=== PATIENT | male | born 1930 | race Caucasian/White ===

== ENCOUNTER → 2016-10-19 | Outpatient (CLI) | payer MEDICARE, OTHER | LOC: OD 08:03 | PROVIDERS: ATTEND Family Medicine | DX: I10 Essential (primary) hypertension (principal); Z13.1 Encounter for screening for diabetes mellitus; R42 Dizziness and giddiness; N40.0 Benign prostatic hyperplasia without lower urinary tract symptoms | CPT/HCPCS: 36415; 83036; 84153 ==

== ENCOUNTER → 2017-09-28 | Outpatient (CLI) | payer MEDICARE, OTHER ==
[2017-09-28 09:41] LABS: ANION GAP 11 (5-19); BLOOD UREA NITROGEN 19 mg/dL (7-20); CARBON DIOXIDE 28 mmol/L (22-30); CHLORIDE 106 mmol/L (98-107); CHOLESTEROL 129.51 mg/dL (0-200); GLUCOSE 96 mg/dL (75-110); SODIUM 144.7 mmol/L (137-145); TRIGLYCERIDES 81 mg/dL (<150)
[2017-09-28 09:52] LABS: DIRECT LDL 63 mg/dL (<100)
== END ==
LOC: OD 08:20
PROVIDERS: ATTEND Family Medicine
DX: N40.0 Benign prostatic hyperplasia without lower urinary tract symptoms (principal); E78.5 Hyperlipidemia, unspecified; Z13.1 Encounter for screening for diabetes mellitus; I10 Essential (primary) hypertension; Z79.899 Other long term (current) drug therapy
CPT/HCPCS: 36415; 80048; 80061; 83036; 84153; 84443

== ENCOUNTER 2018-05-29 11:55 | Inpatient (IN) | payer OTHER, MEDICARE ==
--- NOTE | 2018-05-29 12:34 | RADIOLOGY REPORT (SQ) ---
EXAM DESCRIPTION: CHEST SINGLE VIEW COMPLETED DATE/TIME: 05/29/2018 12:27 pm REASON FOR STUDY: SOB COMPARISON: 10/20/2011 EXAM PARAMETERS: NUMBER OF VIEWS: One view. TECHNIQUE: Single frontal radiographic view of the chest acquired. RADIATION DOSE: NA LIMITATIONS: Low lung volumes. FINDINGS: LUNGS AND PLEURA: There is mild bibasilar interstitial airspace disease. No consolidation . MEDIASTINUM AND HILAR STRUCTURES: No masses. Contour normal. HEART AND VASCULAR STRUCTURES: Heart is enlarged. No central congestion. BONES: No acute findings. HARDWARE: Sternotomy wires are in place. OTHER: No other significant finding. IMPRESSION: Cardiomegaly. Mild basilar interstitial edema cannot be excluded. Findings are accentu ated by low lung volumes. TECHNICAL DOCUMENTATION: JOB ID: [id number] [employer]- All Rights Reserved Reading location - IP/workstation name: [email or web address]
[2018-05-29 12:37] LABS: ABSOLUTE EOSINOPHILS # (AUTO) 0.4 10^3/uL (0.0-0.6); ABSOLUTE LYMPHOCYTES (AUTO) 1.7 10^3/uL (0.5-4.7); ABSOLUTE MONOCYTES (AUTO) 0.6 10^3/uL (0.1-1.4); ABSOLUTE NEUT (AUTO) 4.9 10^3/uL (1.7-8.2); BASOPHILS % (AUTO) 0.6 % (0-2); EOSINOPHILS % (AUTO) 4.6 % (0-6); HEMOGLOBIN 15.8 g/dL (13.5-17.0); LYMPHOCYTES % (AUTO) 22.5 % (13-45); MEAN CORPUSCULAR HEMOGLOBIN 33.1 pg (27.0-33.4); MEAN CORPUSCULAR HGB CONC 35.2 g/dL (32.0-36.0); MEAN CORPUSCULAR VOLUME 94 fl (80-97); MONOCYTES % (AUTO) 8.3 % (3-13); PLATELET COUNT 172 10^3/uL (150-450); RED BLOOD COUNT 4.79 10^6/uL (4.35-5.55); TOTAL CELLS COUNTED % (AUTO) 100 %; WHITE BLOOD COUNT 7.7 10^3/uL (4.0-10.5)
[2018-05-29] MEDS ORDERED: FUROSEMIDE INJ/PF 40 MG/4 ML SDV IV ONE (13:00)
[2018-05-29 13:04] LABS: ALANINE AMINOTRANSFERASE 16 U/L (21-72); ALBUMIN 4.4 g/dL (3.5-5.0); ALKALINE PHOSPHATASE 96 U/L (38-126); ANION GAP 14 (5-19); ASPARTATE AMINO TRANSFERASE 25 U/L (17-59); BILIRUBIN,DIRECT 0.3 mg/dL (0.0-0.4); BILIRUBIN,TOTAL 0.9 mg/dL (0.2-1.3); BLOOD UREA NITROGEN 19 mg/dL (7-20); CALCIUM 9.4 mg/dL (8.4-10.2); CARBON DIOXIDE 25 mmol/L (22-30); CHLORIDE 102 mmol/L (98-107); GLUCOSE 135 mg/dL (75-110); POTASSIUM 3.8 mmol/L (3.6-5.0); SODIUM 141.4 mmol/L (137-145); TOTAL PROTEIN 7.9 g/dL (6.3-8.2)
--- NOTE | 2018-05-29 13:13 | ER Document Report ---
ED Respiratory Problem - General Stated Complaint: SHORTNESS OF BREATH Time Seen by Provider: 05/29/18 12:54 Primary Care Provider: HEIDY NAIR MD [Primary Care Provider] - Follow up as needed Notes: Patient brought in by EMS for shortness of breath for the past couple of weeks. Initially, no family is available and the patient has dementia and is unable to answer questions appropriately. EMS reports that family called because of low oxygen level. They have a home pulse ox to measure oxygen levels. EMS found his O2 sat to be 86% on room air. Soon after this, patient's daughter arrived and was able to fill in the history. She says he has had a dry cough for the past week or more. Also some runny nose. Did receive flu vaccination. Has not been running a fever. Patient has been weak and dizzy feeling. Quickly declining memory. Lives with his daughter. Saw his primary care provider, Dr. Nair, yesterday we will plan to refer the patient to see a eating disorder specialist. The daughter has been taking his oxygen saturation and says that he was reading a 72% on room air at home. He does not have COPD or asthma or any pulmonary disease. He does not have home oxygen. TRAVEL OUTSIDE OF THE [place] IN LAST 30 DAYS: No - Related Data Allergies/Adverse Reactions: No Known Allergies Allergy (Verified 05/29/18 12:20) Past Medical History - Social History Smoking Status: Former Smoker Family History: Reviewed & Not Pertinent Patient has suicidal ideation: No Patient has homicidal ideation: No - Past Medical History Cardiac Medical History: Reports: Hx Atrial Fibrillation, Hx Coronary Artery Disease, Hx Hypercholesterolemia, Hx Hypertension, Other Pulmonary Medical History: Denies: Hx Asthma, Hx COPD Renal/ Medical History: Reports: Hx Benign Prostatic Hyperplasia, Hx Kidney Stones Musculoskeletal Medical History: Reports Hx Arthritis Psychiatric Medical History: Reports: Hx Dementia Past Surgical History: Reports: Hx Appendectomy, Hx Cardiac Catheterization, Hx Cardiac Surgery - failed bypass, Hx Coronary Artery Bypass Graft, Hx Herniorrhaphy. Denies: Hx Pacemaker - Immunizations Hx Diphtheria, Pertussis, Tetanus Vaccination: No Hx Pneumococcal Vaccination: 03/06/07 Review of Systems - Review of Systems Notes: REVIEW OF SYSTEMS: Information provided by his daughter. CONSTITUTIONAL : Denies fever. EENT: Denies eye, ear, nose or mouth or throat pain or other symptoms. CARDIOVASCULAR: Denies chest pain. RESPIRATORY: See HPI. GASTROINTESTINAL: Denies abdominal pain or nausea, vomiting, or diarrhea. GENITOURINARY: Denies difficulty or painful urinating, urinary frequency, blood in urine. MUSCULOSKELETAL: Denies back or neck pain. Denies joint pain or swelling. SKIN: Denies rash or skin lesions. NEUROLOGICAL: Chronic altered mental status. ALL OTHER SYSTEMS REVIEWED AND NEGATIVE. Physical Exam - Vital signs Vitals: Pulse Ox 98 05/29/18 12:07 Interpretation: Normal Notes: PHYSICAL EXAMINATION: GENERAL: Well-appearing, in no acute distress. HEAD: Atraumatic, normocephalic. EYES: Pupils equal round and reactive to light, extraocular movements intact. ENT: oropharynx clear without exudates. Moist mucous membranes. NECK: Normal range of motion, supple. LUNGS: Breath sounds clear and equal bilaterally. Very few crackles bilaterally. No wheezes. Very few rales. HEART: Irregularly irregular rate and rhythm with a loud S2. ABDOMEN: Soft, nontender. No guarding or rebound. No masses. BACK: No tenderness throughout entire back. EXTREMITIES: Normal range of motion without pain. Trace ankle edema. NEUROLOGICAL: Confused with poor memory. Pleasant and cooperative. Moves all 4 extremities. Awake and alert but not oriented. SKIN: Warm, dry, no rashes. Course - Re-evaluation Re-evalutation: 05/29/18 15:05 Patient's x-ray shows what looks like congestive heart failure so he was given 40 Lasix IV. His blood pressure is sufficiently decreased on its own. Starting to urinate already. Spoke with hospitalist who will admit the patient. - Vital Signs Vital signs: Temp Pulse Resp BP Pulse Ox 98.7 F 23 H 138/83 H 95 05/29/18 13:34 05/29/18 13:30 05/29/18 13:30 05/29/18 13:30 - Laboratory Result Diagrams: 05/29/18 11:30 05/29/18 11:30 Laboratory results interpreted by me: 05/29/18 05/29/18 11:30 11:30 Creatinine 1.70 H Est GFR ( Amer) 46 L Est GFR (Non-Af Amer) 38 L Glucose 135 H ALT 16 L NT-Pro-B Natriuret Pep 3350 H - Diagnostic Test Radiology results interpreted by me: 05/29/18 15:06 Chest x-ray shows cardiomegaly with mild basilar interstitial edema. My interpretation is that this is congestive heart failure with cardiomegaly. - EKG Interpretation by Me Rate: Normal - 87 Rhythm: A.Fib Additional EKG results interpreted by me: 05/29/18 15:07 EKG shows no acute changes. Critical Care Note - Critical Care Note Total time excluding time spent on procedures (mins): 35 Discharge - Discharge Clinical Impression: Congestive heart failure, Hypoxia Condition: Stable Disposition: ADMITTED INPATIENT Admitting Provider: Hospitalist Unit Admitted: Telemetry Referrals: HEIDY NAIR MD [Primary Care Provider] - Follow up as needed
[2018-05-29 13:38] LABS: CREATINE KINASE MB 2.03 ng/mL (<4.55); TROPONIN I 0.021 ng/mL
[2018-05-29 13:52] LABS: INTERNATIONAL RATION (INR) 0.94
[2018-05-29 14:04] LABS: A TYPE INFLUENZA AG NEGATIVE (NEGATIVE); B INFLUENZA AG NEGATIVE (NEGATIVE)
[2018-05-29 16:18] LABS: APPEARANCE,URINE CLEAR; BILIRUBIN,URINE NEGATIVE (NEGATIVE); COLOR,URINE STRAW; GLUCOSE, URINE NEGATIVE (NEGATIVE); KETONES,URINE NEGATIVE (NEGATIVE); LEUKOCYTE ESTERASE,URINE NEGATIVE (NEGATIVE); NITRITE,URINE NEGATIVE (NEGATIVE); PROTEIN,URINE NEGATIVE (NEGATIVE); URINE SPECIFIC GRAVITY 1.005; UROBILINOGEN,URINE NEGATIVE mg/dL (<2.0)
[2018-05-29] MEDS ORDERED: TRAMADOL HCL 50 MG TABLET PO PRN (19:49)
--- NOTE | 2018-05-29 20:29 | PDOC H&P ---
History of Present Illness Admission Date/PCP: 05/29/18 15:29 HEIDY PETERSON MD Patient complains of: Shortness of breath History of Present Illness: BRIGITTE VAUGHAN is a 87 year old male with underlying dementia. His past medical history significant for coronary artery disease status post CABG, hyperlipidemia, hypertension and reported history of chronic renal disease although the family states this is not the case. In any event the patient was brought to the hospital with a 2-day history of worsening shortness of breath and weakness. He was found to have an elevated BNP and a chest x-ray was concerning for vascular congestion. He was referred for admission. The patient himself is quite demented and it was difficult to get a good review of systems. Past Medical History Cardiac Medical History: Reports: Atrial Fibrillation, Coronary Artery Disease, Hyperlipidema, Hypertension, Other Pulmonary Medical History: Denies: Asthma, Chronic Obstructive Pulmonary Disease (COPD) EENT Medical History: Reports: None Neurological Medical History: Reports: None Endocrine Medical History: Reports: None Renal/ Medical History: Reports: Chronic Kidney Disease Malignancy Medical History: Reports: None GI Medical History: Reports: None Musculoskeltal Medical History: Reports: Arthritis Psychiatric Medical History: Reports: Dementia Hematology: Reports: Anemia Infectious Medical History: Reports: None Past Surgical History Past Surgical History: Reports: Appendectomy, Cardiac Catheterization, Coronary Artery Bypass Graft, Herniorrhaphy Denies: Pacemaker Social History Information Source: Relative Lives with: Family Smoking Status: Former Smoker Frequency of Alcohol Use: None Hx Recreational Drug Use: No Hx Prescription Drug Abuse: No - Advance Directive Resuscitation Status: Do Not Resuscitate Surrogate healthcare decision maker:: Carmen Guzman [phone]. She is the patient's daughter and primary decision maker Family History Family History: Reviewed & Not Pertinent Parental Family History Reviewed: Yes Children Family History Reviewed: Yes Sibling(s) Family History Reviewed.: Yes Medication/Allergy Home Medications: Aspirin [Ecotrin] 81 mg PO DAILY 05/29/18 Benzonatate [Tessalon Perles 100 mg Capsule] 200 mg PO TIDP PRN 05/29/18 Donepezil HCl [Aricept] 5 mg PO DAILY 05/29/18 Doxazosin Mesylate [Cardura 2 mg Tablet] 2 mg PO QHS 05/29/18 Furosemide [Lasix 20 mg Tablet] 20 mg PO QAM 05/29/18 Lisinopril [Prinivil] 20 mg PO QHS 05/29/18 Lovastatin [Altoprev] 20 mg PO QHS 05/29/18 Memantine HCl [Namenda 10 mg Tablet] 10 mg PO DAILY 05/29/18 Metoprolol Tartrate [Lopressor 25 mg Tablet] 12.5 mg PO Q12 05/29/18 Nifedipine [Procardia Xl] 90 mg PO DAILY 05/29/18 Tramadol HCl [Ultram 50 mg Tablet] 50 mg PO Q8HP PRN 05/29/18 Allergies/Adverse Reactions: No Known Allergies Allergy (Verified 05/29/18 12:20) Review of Systems ROS unobtainable: Due to mental status Physical Exam Vital Signs: Temp Pulse Resp BP Pulse Ox 97.3 F 99 16 140/93 H 90 L 05/29/18 19:08 05/29/18 19:08 05/29/18 19:08 05/29/18 19:08 05/29/18 19:08 Intake & Output 05/28/18 05/29/18 05/30/18 06:59 06:59 06:59 Weight 97.522 kg General appearance: PRESENT: no acute distress, well-developed, well-nourished, other - He is quite pleasantly confused. He is receiving oxygen via nasal cannula Head exam: PRESENT: atraumatic, normocephalic Ear exam: PRESENT: normal external ear exam Mouth exam: PRESENT: dry mucosa Neck exam: ABSENT: carotid bruit, JVD, lymphadenopathy, thyromegaly Respiratory exam: PRESENT: clear to auscultation andreia. ABSENT: rales, rhonchi, wheezes Cardiovascular exam: PRESENT: RRR. ABSENT: diastolic murmur, rubs, systolic murmur Pulses: PRESENT: normal dorsalis pedis pul GI/Abdominal exam: PRESENT: normal bowel sounds, soft. ABSENT: distended, guarding, mass, organolmegaly, rebound, tenderness Rectal exam: PRESENT: deferred Extremities exam: PRESENT: other - He has some mild pitting edema in both of his lower extremities Musculoskeletal exam: PRESENT: ambulatory Neurological exam: PRESENT: alert, awake, oriented to person, CN II-XII grossly intact. ABSENT: oriented to place, oriented to time, oriented to situation, motor sensory deficit Psychiatric exam: PRESENT: appropriate affect, normal mood. ABSENT: homicidal ideation, suicidal ideation Skin exam: PRESENT: dry, intact, warm. ABSENT: cyanosis, rash Results Laboratory Results: 05/29/18 11:30 05/29/18 11:30 05/29/18 05/29/18 05/29/18 11:30 11:30 15:53 WBC 7.7 RBC 4.79 Hgb 15.8 Hct 45.0 MCV 94 MCH 33.1 MCHC 35.2 RDW 14.0 Plt Count 172 Seg Neutrophils % 64.0 Lymphocytes % 22.5 Monocytes % 8.3 Eosinophils % 4.6 Basophils % 0.6 Absolute Neutrophils 4.9 Absolute Lymphocytes 1.7 Absolute Monocytes 0.6 Absolute Eosinophils 0.4 Absolute Basophils 0.0 Sodium 141.4 Potassium 3.8 Chloride 102 Carbon Dioxide 25 Anion Gap 14 BUN 19 Creatinine 1.70 H Est GFR ( Amer) 46 L Est GFR (Non-Af Amer) 38 L Glucose 135 H Calcium 9.4 Total Bilirubin 0.9 AST 25 ALT 16 L Alkaline Phosphatase 96 Total Protein 7.9 Albumin 4.4 Urine Color STRAW Urine Appearance CLEAR Urine pH 7.0 Ur Specific [place] 1.005 Urine Protein NEGATIVE Urine Glucose (UA) NEGATIVE Urine Ketones NEGATIVE Urine Blood NEGATIVE Urine Nitrite NEGATIVE Ur Leukocyte Esterase NEGATIVE Urine WBC (Auto) 0 Urine RBC (Auto) 0 05/29/18 11:30 CK-MB (CK-2) 2.03 Troponin I 0.021 NT-Pro-B Natriuret Pep 3350 H Impressions: Chest X-Ray 05/29/18 12:00 IMPRESSION: Cardiomegaly. Mild basilar interstitial edema cannot be excluded. Findings are accentuated by low lung volumes. Assessment and Plan - Diagnosis (1) Acute respiratory failure with hypoxia Is this a current diagnosis for this admission?: Yes Plan: (2) Congestive heart failure Qualifiers: Heart failure chronicity: acute Is this a current diagnosis for this admission?: Yes Plan: At this point I suspect the patient is having a diastolic congestive heart failure event. He received 40 mg of IV Lasix earlier in the day. We will give him an additional dose tonight. He is still requiring oxygen at this point and hopefully we can get him weaned off and discharge tomorrow. A 2D echocardiogram is been ordered (3) Chronic renal failure Is this a current diagnosis for this admission?: Yes Plan: The family states that he does not have history of any sort of renal failure. However it is documented in the records that he does. He has a creatinine of 1.7. I will check a chemistry panel in the morning and will see if his renal function improves with diuresis. (4) CAD (coronary artery disease) Is this a current diagnosis for this admission?: Yes Plan: He will continue his home regimen. He is status post CABG in the past. (5) Hypertension Is this a current diagnosis for this admission?: Yes Plan: Quite stable. He will continue his home regimen (6) Hyperlipidemia Is this a current diagnosis for this admission?: Yes Plan: Continue atorvastatin - Time Time Spent with patient: 35 or more minutes - Inpatient Certification Medical Necessity: Other - The patient will be placed in observation in the hospital. He looks amazingly well and is only borderline hypoxic at this point. I believe he needs further diuresis and a 2D cardiac echo but I am hopeful that his hospitalization will span less than 2 midnights. Certainly if the situation changes he can be converted to a full admission.
--- NOTE | 2018-05-29 21:53 | EKG REPORT ---
SEVERITY:- ABNORMAL ECG - A-FLUTTER W/ PREDOM 3:1 AV BLOCK, A-RATE 254 RIGHT BUNDLE BRANCH BLOCK INFERIOR INFARCT, AGE INDETERMINATE : Confirmed by: Lucia Wilkerson MD 29-May-2018 21:52:07
[2018-05-29] MEDS: DOXAZOSIN MESYLATE 2 MG TABLET PO SCH (21:57)
[2018-05-29] MEDS: LISINOPRIL 10 MG TABLET PO SCH (21:57)
[2018-05-29] MEDS: METOPROLOL TARTRATE 25 MG TABLET PO SCH (21:57)
[2018-05-29] MEDS: FUROSEMIDE INJ/PF 20 MG/2 ML SDV IV SCH (21:58)
[2018-05-29] MEDS ORDERED: (PENDING PHARMACY ID) (Lisinopril [Prinivil] 20 MG) PO SCH (22:00)
[2018-05-29] MEDS ORDERED: (PENDING PHARMACY ID) (Lovastatin [Altoprev] 20 MG) PO SCH (22:00)
[2018-05-30 02:35] LABS: HEMATOCRIT 40.7 % (37.9-51.0); MEAN CORPUSCULAR HEMOGLOBIN 32.1 pg (27.0-33.4); MEAN CORPUSCULAR HGB CONC 34.4 g/dL (32.0-36.0); MEAN CORPUSCULAR VOLUME 93 fl (80-97); PLATELET COUNT 146 10^3/uL (150-450); RED BLOOD COUNT 4.37 10^6/uL (4.35-5.55); WHITE BLOOD COUNT 6.3 10^3/uL (4.0-10.5)
[2018-05-30 02:58] LABS: ANION GAP 11 (5-19); BLOOD UREA NITROGEN 20 mg/dL (7-20); CALCIUM 8.9 mg/dL (8.4-10.2); CARBON DIOXIDE 27 mmol/L (22-30); CHLORIDE 102 mmol/L (98-107); CHOLESTEROL 109.35 mg/dL (0-200); GLUCOSE 95 mg/dL (75-110); PHOSPHORUS 3.7 mg/dL (2.5-4.5); POTASSIUM 3.6 mmol/L (3.6-5.0); SODIUM 139.6 mmol/L (137-145); TRIGLYCERIDES 87 mg/dL (<150)
[2018-05-30 03:21] LABS: DIRECT LDL 57 mg/dL (<100)
[2018-05-30] MEDS: PANTOPRAZOLE SODIUM 40 MG TABLET.DR PO SCH (05:41)
[2018-05-30] MEDS ORDERED: NIFEDIPINE 90 MG PO SCH (10:00)
[2018-05-30] MEDS: FUROSEMIDE INJ/PF 20 MG/2 ML SDV IV SCH ×2 (10:15→21:57)
[2018-05-30] MEDS: NIFEDIPINE 30 MG TAB.ER.24 PO SCH (10:16)
[2018-05-30] MEDS: METOPROLOL TARTRATE 25 MG TABLET PO SCH ×2 (10:17→21:58)
[2018-05-30] MEDS: MEMANTINE HCL 10 MG TABLET PO SCH (10:17)
[2018-05-30] MEDS: DONEPEZIL HCL 5 MG TABLET PO SCH (10:18)
[2018-05-30] MEDS: DOCUSATE SODIUM 100 MG CAPSULE PO SCH (10:18)
[2018-05-30] MEDS: ASPIRIN 81 MG TABLET, ENT COATED PO SCH (10:19)
[2018-05-30] MEDS: ENOXAPARIN SODIUM INJ 30 MG/0.3 ML DISP.SYRIN SUBCUT SCH (10:19)
--- NOTE | 2018-05-30 18:30 | RADIOLOGY REPORT (SQ) ---
EXAM DESCRIPTION: CT CHEST WITHOUT COMPLETED DATE/TIME: 05/30/2018 6:10 pm REASON FOR STUDY: hypoxia COMPARISON: Chest x-ray dated 05/29/2018. Chest CT dated 11/26/2009. TECHNIQUE: CT scan performed of the chest without intravenous contrast. Images reviewed with lung, soft tissue and bone windows. Reconstructed coronal and sagittal MPR images reviewed. All images st ored on PACS. All CT scanners at this facility use dose modulation, iterative reconstruction, and/or weight based d osing when appropriate to reduce radiation dose to as low as reasonably achievable (ALARA). [facility]: Dose Right [facility]: CareDose [facility]: Dose Right [facility]: Teradose 4D [facility]: [employer] RADIATION DOSE: CT Rad equipment meets quality standard of care and radiation dose reduction techniq ues were employed. CTDIvol: 19.7 - 21.1 mGy. DLP: 830 mGy-cm. mGy. LIMITATIONS: No technical limitations. FINDINGS: LUNGS AND PLEURA: Chronic parenchymal scarring. Bronchiectasis in the lower lobes. Patch y scattered ground-glass opacities. No masses, infiltrates, or pneumothorax. No pleural effusions o r pleural calcifications. HILAR AND MEDIASTINAL STRUCTURES: No identified masses or abnormal nodes. No obvious aneurysm. Larg e hiatal hernia. HEART AND VASCULAR STRUCTURES: No aneurysm. Cardiomegaly. No pericardial effusion. UPPER ABDOMEN: No significant findings. Limited exam. THYROID AND OTHER SOFT TISSUES: No masses. No adenopathy. BONES: No significant finding. HARDWARE: Sternotomy wires. OTHER: No other significant findings. IMPRESSION: 1. CHRONIC PARENCHYMAL SCARRING. BRONCHIECTASIS. PATCHY SCATTERED GROUND-GLASS OPACITIES, NONSPECIF IC. THESE COULD BE DUE TO ATELECTASIS, PNEUMONITIS, OR LESS LIKELY DEVELOPING PULMONARY EDEMA. 2. LARGE HIATAL HERNIA. 3. NO OTHER SIGNIFICANT FINDING ON NON-CONTRASTED CHEST CT. TECHNICAL DOCUMENTATION: JOB ID: [id number] Quality ID # [id number]: Final reports with documentation of one or more dose reduction techniques (e.g., Au tomated exposure control, adjustment of the mA and/or kV according to patient size, use of iterative reconstruction technique) 2010 [employer]- All Rights Reserved Reading location - IP/workstation name: [email or web address]
--- NOTE | 2018-05-30 20:06 | PDOC PROGRESS REPORT ---
Subjective Progress Note for:: 05/30/18 Subjective:: The patient is an 87-year-old gentleman who was admitted to the hospital with shortness of breath and found to be having a congestive heart failure exacerbation. He was hypoxic at the time of admission requiring 2 L of oxygen to maintain his oxygen saturations. He was admitted and started on IV Lasix twice daily. This morning when I went to see the patient he is on 6 L of oxygen. He says that he is somewhat short of breath today. He has had a 2D ec hocardiogram the results of which have not been read yet. A noncontrasted CT scan of the chest was ordered to rule out an underlying pneumonia. I ordered a d-dimer that later came back positive. He had already had his CT scan of the chest so VQ scan was ordered. The patient himself is somewhat confused. He is able to tell me he is short of breath but otherwise her review of systems could not be obtained Reason For Visit: ACUTE EXACERBATION CHF,HTN,ACUTE RESPIRATORY Physical Exam Vital Signs: Temp Pulse Resp BP Pulse Ox 97.8 F 74 16 139/87 H 97 05/30/18 16:00 05/30/18 19:00 05/30/18 16:00 05/30/18 16:00 05/30/18 16:00 Intake & Output 05/29/18 05/30/18 05/31/18 06:59 06:59 06:59 Intake Total 518 Balance 518 Weight 97.6 kg General appearance: PRESENT: no acute distress, well-developed, well-nourished, other - He is receiving oxygen via nasal cannula Head exam: PRESENT: atraumatic, normocephalic Respiratory exam: PRESENT: crackles, decreased breath sounds Cardiovascular exam: PRESENT: RRR. ABSENT: diastolic murmur, rubs, systolic murmur GI/Abdominal exam: PRESENT: normal bowel sounds, soft. ABSENT: distended, guard ing, mass, organolmegaly, rebound, tenderness Rectal exam: PRESENT: deferred Extremities exam: PRESENT: full ROM. ABSENT: calf tenderness, clubbing, pedal edema Neurological exam: PRESENT: alert, awake, oriented to person, CN II-XII grossly intact. ABSENT: oriented to place, oriented to time, oriented to situation, motor sensory deficit Psychiatric exam: PRESENT: appropriate affect, normal mood. ABSENT: homicidal ideation, suicidal ideation Skin exam: PRESENT: dry, intact, warm. ABSENT: cyanosis, rash Results Laboratory Results: 05/30/18 02:08 05/30/18 02:08 05/30/18 05/30/18 02:08 02:08 WBC 6.3 RBC 4.37 Hgb 14.0 Hct 40.7 MCV 93 MCH 32.1 MCHC 34.4 RDW 14.0 Plt Count 146 L Sodium 139.6 Potassium 3.6 Chloride 102 Carbon Dioxide 27 Anion Gap 11 BUN 20 Creatinine 1.76 H Est GFR ( Amer) 45 L Est GFR (Non-Af Amer) 37 L Glucose 95 Calcium 8.9 Phosphorus 3.7 Magnesium 2.0 Triglycerides 87 Cholesterol 109.35 LDL Cholesterol Direct 57 VLDL Cholesterol 17.0 HDL Cholesterol 38 L 05/29/18 05/29/18 05/29/18 11:30 20:40 20:40 Creatine Kinase 103 CK-MB (CK-2) 2.03 Troponin I 0.021 0.019 NT-Pro-B Natriuret Pep 3350 H 05/30/18 05/30/18 05/30/18 02:08 02:08 09:32 Creatine Kinase 97 102 CK-MB (CK-2) Troponin I 0.022 NT-Pro-B Natriuret Pep 05/30/18 05/30/18 09:32 09:32 Creatine Kinase CK-MB (CK-2) Troponin I 0.022 NT-Pro-B Natriuret Pep 1990 H Impressions: Chest X-Ray 05/29/18 12:00 IMPRESSION: Cardiomegaly. Mild basilar interstitial edema cannot be excluded. Findings are accentuated by low lung volumes. Chest CT 05/30/18 00:00 IMPRESSION: 1. CHRONIC PARENCHYMAL SCARRING. BRONCHIECTASIS. PATCHY SCATTERED GROUND-GLASS OPACITIES, NONSPECIFIC. THESE COULD BE DUE TO ATELECTASIS, PNEUMONITIS, OR LESS LIKELY DEVELOPING PULMONARY EDEMA. 2. LARGE HIATAL HERNIA. 3. NO OTHER SIGNIFICANT FINDING ON NON-CONTRASTED CHEST CT. Assessment and Plan - Diagnosis (1) Acute respiratory failure with hypoxia Is this a current diagnosis for this admission?: Yes Plan: The patient is respiratory failure appeared to be due to congestive heart failure exacerbation. He is receiving 40 mg of IV Lasix twice daily and so far tolerating diuresis. He had a CT scan of the chest that did not reveal any pneumonia. There was evidence of bronchiectasis and possible pneumonitis or edema. At this point I am not sure why he is requiring more oxygen. We will have the respiratory therapist work with him. I will place him on some breathin g treatments and see if this makes a difference. (2) Congestive heart failure Qualifiers: Heart failure chronicity: acute Is this a current diagnosis for this admission?: Yes Plan: At this point I suspect the patient is having a diastolic congestive heart failure event. He will continue IV Lasix 40 mg twice daily. 2D echocardiogram is pending. So far he is tolerating diuresis (3) Chronic renal failure Is this a current diagnosis for this admission?: Yes Plan: The family states that he does not have history of any sort of renal failure. However it is documented in the records that he does. He has a creatinine of 1.7. I will check a chemistry panel in the morning and will see if his renal function improves with diuresis. (4) CAD (coronary artery disease) Is this a current diagnosis for this admission?: Yes Plan: He will continue his home regimen. He is status post CABG in the past. (5) Hypertension Is this a current diagnosis for this admission?: Yes Plan: Quite stable. He will continue his home regimen (6) Hyperlipidemia Is this a current diagnosis for this admission?: Yes Plan: Continue atorvastatin - Time Time Spent with patient: 35 or more minutes - Inpatient Certification Medical Necessity: Other - The patient status has been changed from observation to admission. The patient is now requiring 6 L of oxygen. I do believe he will be in the hospital for another couple of days. Timing of disposition will be determined by his clinical course
--- NOTE | 2018-05-30 21:25 | EKG REPORT ---
SEVERITY:- ABNORMAL ECG - SINUS RHYTHM FIRST DEGREE AV BLOCK RIGHT BUNDLE BRANCH BLOCK INFERIOR INFARCT, AGE INDETERMINATE : Confirmed by: Lucia Wilkerson MD 30-May-2018 21:24:01
[2018-05-30] MEDS: ATORVASTATIN CALCIUM 10 MG TABLET PO SCH (21:57)
[2018-05-30] MEDS: LISINOPRIL 10 MG TABLET PO SCH (21:59)
[2018-05-30] MEDS: DOXAZOSIN MESYLATE 2 MG TABLET PO SCH (21:59)
--- NOTE | 2018-05-30 22:07 | XCELERA REPORT ---
[address] [address] Transthoracic Echocardiogram Report Name: BRIGITTE VAUGHAN Age: 87 yrs Gender: Male : 1930 Patient Status: Inpatient Patient Location: [address] [place] [address] Study Date: 05/30/2018 08:44 AM Height: 68 in Weight: 215 lb BSA: 2.1 m2 Procedure: A two-dimensional transthoracic echocardiogram with color flow Doppler was performed. Study Quality: Technically suboptimal. The study was technically difficult with many images being suboptimal in quality. Reason For Study: chf History: CHF. Ordering Physician: TODD MENA Performed By: Susan Rodriguez Interpretation Summary The left ventricle is normal in size. There is mild to moderate concentric left ventricular hypertrophy. LV EF is > than 60% The left ventricular ejection fraction is within normal limits. Doppler measurements suggest impaired left ventricular relaxation, which is associated with grade I/IV or mild diastolic dysfunction The left ventricular wall motion is normal. There is no thrombus. The right ventricle is grossly normal size. The right ventricle is not well visualized secondary to technical limitations The right atrium is normal. Right atrium not well visualized secondary to technical limitations The left atrium is mildly dilated. There is no evidence of mitral valve prolapse. There is no vegetation seen on the mitral valve. There is no mitral valve stenosis. There is a trace amount of mitral regurgitation There is no aortic valvular vegetation. There is mild aortic stenosis There is a peak gradient of 23 mm of Hg. No aortic regurgitation is present. There is no tricuspid stenosis. There is a trace to mild amount of tricuspid regurgitation There is moderate pulmonary hypertension by echo RVSP is 49 mm of Hg , with RA mean of 10. The inferior vena cava was not visualized Minimal pericardial effusion. ( TRACE PERICARDIAL EFFUSION:PHYSIOLOGICAL). MMode/2D Measurements & Calculations RVDd: 4.2 cm LVIDd: 4.0 cm FS: 21.7 % Ao root diam: 3.6 cm IVSd: 1.7 cm LVIDs: 3.2 cm EDV(Teich): 71.4 ml Ao root area: 10.4 cm2 LVPWd: 1.7 cm ESV(Teich): 39.7 ml EF(Teich): 44.5 % Doppler Measurements & Calculations MV E max naren: MV dec slope: Ao V2 max: LV V1 max P.9 cm/sec 316.1 cm/sec2 239.1 cm/sec 1.7 mmHg MV A max naren: MV dec time: Ao max PG: LV V1 mean P.8 cm/sec 0.18 sec 23.3 mmHg 0.66 mmHg MV E/A: 0.69 Ao V2 mean: LV V1 max: 178.5 cm/sec 63.8 cm/sec Ao mean PG: LV V1 mean: 14.1 mmHg 38.5 cm/sec Ao V2 VTI: 45.7 cm LV V1 VTI: 10.1 cm LV dP/dt: 920.1 mmHg/s PA V2 max: TR max naren: 107.2 cm/sec 310.7 cm/sec PA max P.6 mmHgTR max P.6 mmHg Left Ventricle The left ventricle is normal in size. There is mild to moderate concentric left ventricular hypertrophy. LV EF is > than 60%. The left ventricular ejection fraction is within normal limits. Doppler measurements suggest impaired left ventricular relaxation, which is associated with grade I/IV or mild diastolic dysfunction. The left ventricular wall motion is normal. There is no thrombus. Right Ventricle The right ventricle is grossly normal size. The right ventricle is not well visualized secondary to technical limitations. Atria The right atrium is normal. Right atrium not well visualized secondary to technical limitations. The left atrium is mildly dilated. Mitral Valve There is no evidence of mitral valve prolapse. There is no vegetation seen on the mitral valve. There is no mitral valve stenosis. There is a trace amount of mitral regurgitation. Aortic Valve There is no aortic valvular vegetation. There is mild aortic stenosis. There is a peak gradient of 23 mm of Hg. No aortic regurgitation is present. Tricuspid Valve There is no tricuspid stenosis. There is a trace to mild amount of tricuspid regurgitation. There is moderate pulmonary hypertension by echo. RVSP is 49 mm of Hg , with RA mean of 10. Pulmonic Valve There is no pulmonic valvular stenosis. There is no pulmonic valvular regurgitation. Great Vessels The aortic root is not well visualized. The inferior vena cava was not visualized. Effusions Minimal pericardial effusion. ( TRACE PERICARDIAL EFFUSION:PHYSIOLOGICAL). : TODD MENA > Lucia Wilkerson
[2018-05-31] MEDS: PANTOPRAZOLE SODIUM 40 MG TABLET.DR PO SCH (05:23)
[2018-05-31 05:49] LABS: ABSOLUTE EOSINOPHILS # (AUTO) 0.4 10^3/uL (0.0-0.6); ABSOLUTE LYMPHOCYTES (AUTO) 1.6 10^3/uL (0.5-4.7); ABSOLUTE MONOCYTES (AUTO) 0.7 10^3/uL (0.1-1.4); ABSOLUTE NEUT (AUTO) 4.2 10^3/uL (1.7-8.2); BASOPHILS % (AUTO) 0.7 % (0-2); EOSINOPHILS % (AUTO) 5.8 % (0-6); HEMATOCRIT 42.9 % (37.9-51.0); HEMOGLOBIN 14.8 g/dL (13.5-17.0); LYMPHOCYTES % (AUTO) 22.5 % (13-45); MEAN CORPUSCULAR HEMOGLOBIN 32.1 pg (27.0-33.4); MEAN CORPUSCULAR HGB CONC 34.4 g/dL (32.0-36.0); MEAN CORPUSCULAR VOLUME 93 fl (80-97); MONOCYTES % (AUTO) 9.7 % (3-13); PLATELET COUNT 158 10^3/uL (150-450); SEGMENTED NEUTROPHILS % (AUTO) 61.3 % (42-78); TOTAL CELLS COUNTED % (AUTO) 100 %; WHITE BLOOD COUNT 6.9 10^3/uL (4.0-10.5)
[2018-05-31 06:17] LABS: ALBUMIN 3.7 g/dL (3.5-5.0); ANION GAP 11 (5-19); BLOOD UREA NITROGEN 26 mg/dL (7-20); CALCIUM 9.1 mg/dL (8.4-10.2); CARBON DIOXIDE 28 mmol/L (22-30); CHLORIDE 100 mmol/L (98-107); GLUCOSE 89 mg/dL (75-110); SODIUM 138.9 mmol/L (137-145)
[2018-05-31] MEDS: IPRATROPIUM/ALBUTEROL 0.5-2.5 MG/3 ML AMPUL NEB SCH ×3 (08:47→22:16)
[2018-05-31] MEDS ORDERED: FUROSEMIDE INJ/PF 20 MG/2 ML SDV IV SCH (10:00)
[2018-05-31] MEDS: DOCUSATE SODIUM 100 MG CAPSULE PO SCH (10:01)
[2018-05-31] MEDS: ASPIRIN 81 MG TABLET, ENT COATED PO SCH (10:02)
[2018-05-31] MEDS: METOPROLOL TARTRATE 25 MG TABLET PO SCH ×2 (10:02→21:26)
[2018-05-31] MEDS: DONEPEZIL HCL 5 MG TABLET PO SCH (10:02)
[2018-05-31] MEDS: NIFEDIPINE 30 MG TAB.ER.24 PO SCH (10:03)
[2018-05-31] MEDS: ENOXAPARIN SODIUM INJ 30 MG/0.3 ML DISP.SYRIN SUBCUT SCH (10:04)
[2018-05-31] MEDS: MEMANTINE HCL 10 MG TABLET PO SCH (10:05)
--- NOTE | 2018-05-31 17:53 | PDOC PROGRESS REPORT ---
Subjective Progress Note for:: 05/31/18 Subjective:: Patient seen resting in bed. He is awake, alert and alert. He is confused to place and time. He knows his name and birthday. He denies any chest pain, shortness of breath or dyspnea. He denies nausea, vomiting or abdominal pain. He denies any significant arthralgias or myalgias. He denies fever or chills overnight. Remaining review of systems are negative. Reason For Visit: ACUTE EXACERBATION CHF,HTN,ACUTE RESPIRATORY Physical Exam Vital Signs: Temp Pulse Resp BP Pulse Ox 98.1 F 61 14 103/66 95 05/31/18 16:00 05/31/18 16:00 05/31/18 16:00 05/31/18 16:00 05/31/18 16:00 Intake & Output 05/30/18 05/31/18 06/01/18 06:59 06:59 06:59 Intake Total 838 118 Output Total 450 Balance 388 118 Weight 97.6 kg 97.5 kg General appearance: PRESENT: no acute distress, obese, well-developed, well-nou rished Head exam: PRESENT: atraumatic, normocephalic Eye exam: PRESENT: conjunctiva pink, EOMI, PERRLA. ABSENT: scleral icterus Ear exam: PRESENT: normal external ear exam Mouth exam: PRESENT: moist, tongue midline Neck exam: ABSENT: carotid bruit, JVD, lymphadenopathy, thyromegaly Respiratory exam: PRESENT: crackles - Right base, symmetrical, unlabored Cardiovascular exam: PRESENT: RRR. ABSENT: diastolic murmur, rubs, systolic murmur Pulses: PRESENT: normal carotid pulses, normal radial pulses Vascular exam: PRESENT: normal capillary refill GI/Abdominal exam: PRESENT: normal bowel sounds, soft. ABSENT: distended, guarding, mass, organolmegaly, rebound, tenderness Rectal exam: PRESENT: deferred Extremities exam: PRESENT: full ROM. ABSENT: calf tenderness, clubbing, pedal edema Neurological exam: PRESENT: alert, altered, oriented to person, CN II-XII grossly intact Psychiatric exam: PRESENT: appropriate affect, normal mood. ABSENT: homicidal ideation, suicidal ideation Skin exam: PRESENT: dry, intact, warm. ABSENT: cyanosis, rash Results Laboratory Results: 05/31/18 05:19 05/31/18 05:19 05/31/18 05/31/18 05:19 05:19 WBC 6.9 RBC 4.60 Hgb 14.8 Hct 42.9 MCV 93 MCH 32.1 MCHC 34.4 RDW 14.0 Plt Count 158 Seg Neutrophils % 61.3 Lymphocytes % 22.5 Monocytes % 9.7 Eosinophils % 5.8 Basophils % 0.7 Absolute Neutrophils 4.2 Absolute Lymphocytes 1.6 Absolute Monocytes 0.7 Absolute Eosinophils 0.4 Absolute Basophils 0.0 Sodium 138.9 Potassium 4.0 Chloride 100 Carbon Dioxide 28 Anion Gap 11 BUN 26 H Creatinine 1.81 H Est GFR ( Amer) 43 L Est GFR (Non-Af Amer) 36 L Glucose 89 Calcium 9.1 Phosphorus 4.0 Magnesium 2.1 Albumin 3.7 05/29/18 05/29/18 05/29/18 11:30 20:40 20:40 Creatine Kinase 103 CK-MB (CK-2) 2.03 Troponin I 0.021 0.019 NT-Pro-B Natriuret Pep 3350 H 05/30/18 05/30/18 05/30/18 02:08 02:08 09:32 Creatine Kinase 97 102 CK-MB (CK-2) Troponin I 0.022 NT-Pro-B Natriuret Pep 05/30/18 05/30/18 09:32 09:32 Creatine Kinase CK-MB (CK-2) Troponin I 0.022 NT-Pro-B Natriuret Pep 1990 H Impressions: Chest X-Ray 05/29/18 12:00 IMPRESSION: Cardiomegaly. Mild basilar interstitial edema cannot be excluded. Findings are accentuated by low lung volumes. Chest CT 05/30/18 00:00 IMPRESSION: 1. CHRONIC PARENCHYMAL SCARRING. BRONCHIECTASIS. PATCHY SCATTERED GROUND-GLASS OPACITIES, NONSPECIFIC. THESE COULD BE DUE TO ATELECTASIS, PNEUMONITIS, OR LESS LIKELY DEVELOPING PULMONARY EDEMA. 2. LARGE HIATAL HERNIA. 3. NO OTHER SIGNIFICANT FINDING ON NON-CONTRASTED CHEST CT. Assessment and Plan - Diagnosis (1) Acute respiratory failure with hypoxia Is this a current diagnosis for this admission?: Yes Plan: We have asked respiratory therapy to do a home oxygen evaluation on him. He appears euvolemic. His lower extremity edema is gone he has mild crackles in the right base. He has a slightly congested cough raising white phlegm. He likely has some bronchiectasis as well. This was discussed with his daughter who came in the room during my exam.. (2) Acute on chronic diastolic heart failure Is this a current diagnosis for this admission?: Yes Plan: Patient appears like his failure is resolving. We will decrease his Lasix to once daily rather than twice daily. We will hopefully be able to discharge him in the next 24 hours. Will arrange follow-up cardiology for him at the daughter's request. (3) CAD (coronary artery disease) Is this a current diagnosis for this admission?: Yes Plan: He will continue his home regimen. He is status post CABG in the past. (4) Chronic renal failure Is this a current diagnosis for this admission?: Yes Plan: The family states that he does not have history of any sort of chronic kidney disease However it is documented in the records that he does. He has a creatinine of 1.7. Creatinine today is 1.87. We will cut diuretics back to once daily. I think he is close to being euvolemic (5) Hyperlipidemia Is this a current diagnosis for this admission?: Yes Plan: Continue atorvastatin (6) Hypertension Is this a current diagnosis for this admission?: Yes Plan: Quite stable. He will continue his home regimen - Time Time Spent with patient: 25-34 minutes Total Critical Time (Minutes): 25 Medications reviewed and adjusted accordingly: Yes Anticipated discharge: Home with Homehealth Within: within 24 hours - Inpatient Certification Based on my medical assessment, after consideration of the patient's comorbidities, presenting symptoms, or acuity I expect that the services needed warrant INPATIENT care.: Yes I certify that my determination is in accordance with my understanding of Medicare's requirements for reasonable and necessary INPATIENT services [42 CFR 412.3e].: Yes Medical Necessity: Risk of Complication if Not Cared For in Hospital
[2018-05-31] MEDS: ATORVASTATIN CALCIUM 10 MG TABLET PO SCH (21:25)
[2018-05-31] MEDS: DOXAZOSIN MESYLATE 2 MG TABLET PO SCH (21:26)
[2018-05-31] MEDS: LISINOPRIL 10 MG TABLET PO SCH (21:26)
[2018-06-01] MEDS: PANTOPRAZOLE SODIUM 40 MG TABLET.DR PO SCH (05:15)
[2018-06-01 05:54] LABS: ANION GAP 11 (5-19); BLOOD UREA NITROGEN 30 mg/dL (7-20); CALCIUM 8.9 mg/dL (8.4-10.2); CARBON DIOXIDE 29 mmol/L (22-30); CHLORIDE 100 mmol/L (98-107); GLUCOSE 87 mg/dL (75-110); POTASSIUM 3.8 mmol/L (3.6-5.0); SODIUM 139.5 mmol/L (137-145)
[2018-06-01] MEDS: IPRATROPIUM/ALBUTEROL 0.5-2.5 MG/3 ML AMPUL NEB SCH ×3 (08:31→19:38)
[2018-06-01] MEDS ORDERED: FUROSEMIDE INJ/PF 40 MG/4 ML SDV IV SCH (10:00)
[2018-06-01] MEDS: ENOXAPARIN SODIUM INJ 30 MG/0.3 ML DISP.SYRIN SUBCUT SCH (10:34)
[2018-06-01] MEDS: MEMANTINE HCL 10 MG TABLET PO SCH (10:35)
[2018-06-01] MEDS: NIFEDIPINE 30 MG TAB.ER.24 PO SCH (10:35)
[2018-06-01] MEDS: ASPIRIN 81 MG TABLET, ENT COATED PO SCH (10:35)
[2018-06-01] MEDS: FUROSEMIDE 20 MG TABLET PO SCH (10:36)
[2018-06-01] MEDS: DOCUSATE SODIUM 100 MG CAPSULE PO SCH (10:37)
[2018-06-01] MEDS: DONEPEZIL HCL 5 MG TABLET PO SCH (10:38)
[2018-06-01] MEDS: METOPROLOL TARTRATE 25 MG TABLET PO SCH ×2 (10:38→22:31)
--- NOTE | 2018-06-01 10:47 | RADIOLOGY REPORT (SQ) ---
EXAM DESCRIPTION: CHEST 2 VIEWS COMPLETED DATE/TIME: 06/01/2018 9:41 am REASON FOR STUDY: Hypoxemia COMPARISON: 05/29/2018 NUMBER OF VIEWS: Two view TECHNIQUE: Frontal and lateral radiographic images of the chest acquired. LIMITATIONS: None. FINDINGS: LUNGS AND PLEURA: Chronic interstitial changes and bronchiectasis. Silhouetting of the le ft diaphragm. MEDIASTINUM AND HILAR STRUCTURES: Stable heart size and mediastinal structures. HEART AND VASCULAR STRUCTURES: Stable appearance. BONES: No acute findings. HARDWARE: None in the chest. OTHER: No other significant finding. IMPRESSION: Atelectasis or early pneumonia left lower lobe. There is a background of chronic inters titial lung disease and bronchiectasis. TECHNICAL DOCUMENTATION: JOB ID: [id number] [employer]- All Rights Reserved Reading location - IP/workstation name: [email or web address]
[2018-06-01] MEDS: ATORVASTATIN CALCIUM 10 MG TABLET PO SCH (22:30)
[2018-06-01] MEDS: DOXAZOSIN MESYLATE 2 MG TABLET PO SCH (22:31)
[2018-06-01] MEDS: LISINOPRIL 10 MG TABLET PO SCH (22:31)
[2018-06-02] MEDS: PANTOPRAZOLE SODIUM 40 MG TABLET.DR PO SCH (06:49)
[2018-06-02] MEDS: IPRATROPIUM/ALBUTEROL 0.5-2.5 MG/3 ML AMPUL NEB SCH ×2 (08:29→13:15)
--- NOTE | 2018-06-02 09:40 | PDOC PROGRESS REPORT ---
Subjective Progress Note for:: 06/01/18 Subjective:: Patient seen resting in bed. He is awake, alert and alert. He is confused to place and time. He knows his name and birthday. He denies any chest pain, shortness of breath or dyspnea. He denies nausea, vomiting or abdominal pain. He denies any significant arthralgias or myalgias. He denies fever or chills overnight. Remaining review of systems are negative. Reason For Visit: ACUTE EXACERBATION CHF,HTN,ACUTE RESPIRATORY Physical Exam Vital Signs: Temp Pulse Resp BP Pulse Ox 98.4 F 104 H 16 98/72 L 93 06/02/18 08:00 06/02/18 08:29 06/02/18 08:29 06/02/18 08:00 06/02/18 09:30 Intake & Output 06/01/18 06/02/18 06/03/18 06:59 06:59 06:59 Intake Total 238 356 Output Total 450 Balance 238 -94 Weight 93.5 kg 84.4 kg General appearance: PRESENT: no acute distress, obese, well-developed, well-n ourished Head exam: PRESENT: atraumatic, normocephalic Eye exam: PRESENT: conjunctiva pink, EOMI, PERRLA. ABSENT: scleral icterus Ear exam: PRESENT: normal external ear exam Mouth exam: PRESENT: moist, tongue midline Neck exam: ABSENT: carotid bruit, JVD, lymphadenopathy, thyromegaly Respiratory exam: PRESENT: decreased breath sounds, rhonchi, symmetrical, unlabored - left base, few rh Cardiovascular exam: PRESENT: irregular rhythm. ABSENT: diastolic murmur, rubs, systolic murmur Pulses: PRESENT: normal carotid pulses, normal radial pulses Vascular exam: PRESENT: normal capillary refill GI/Abdominal exam: PRESENT: normal bowel sounds, soft. ABSENT: distended, guarding, mass, organolmegaly, rebound, tenderness Rectal exam: PRESENT: deferred Extremities exam: PRESENT: full ROM. ABSENT: calf tenderness, clubbing, pedal edema Musculoskeletal exam: PRESENT: ambulatory, full ROM Neurological exam: PRESENT: alert, altered, awake, oriented to person, CN II-XII grossly intact Psychiatric exam: PRESENT: appropriate affect, normal mood. ABSENT: homicidal ideation, suicidal ideation Skin exam: PRESENT: dry, intact, warm. ABSENT: cyanosis, rash Results Laboratory Results: 05/31/18 05:19 06/01/18 05:09 05/29/18 05/29/18 05/29/18 11:30 20:40 20:40 Creatine Kinase 103 CK-MB (CK-2) 2.03 Troponin I 0.021 0.019 NT-Pro-B Natriuret Pep 3350 H 05/30/18 05/30/18 05/30/18 02:08 02:08 09:32 Creatine Kinase 97 102 CK-MB (CK-2) Troponin I 0.022 NT-Pro-B Natriuret Pep 05/30/18 05/30/18 09:32 09:32 Creatine Kinase CK-MB (CK-2) Troponin I 0.022 NT-Pro-B Natriuret Pep 1990 H Impressions: Chest CT 05/30/18 00:00 IMPRESSION: 1. CHRONIC PARENCHYMAL SCARRING. BRONCHIECTASIS. PATCHY SCATTERED GROUND-GLASS OPACITIES, NONSPECIFIC. THESE COULD BE DUE TO ATELECTASIS, PNEUMONITIS, OR LESS LIKELY DEVELOPING PULMONARY EDEMA. 2. LARGE HIATAL HERNIA. 3. NO OTHER SIGNIFICANT FINDING ON NON-CONTRASTED CHEST CT. Chest X-Ray 06/01/18 00:00 IMPRESSION: Atelectasis or early pneumonia left lower lobe. There is a background of chronic interstitial lung disease and bronchiectasis. Assessment and Plan - Diagnosis (1) Acute respiratory failure with hypoxia Is this a current diagnosis for this admission?: Yes Plan: He appears euvolemic. His lower extremity edema is gone he has mild crackles in the right base. He has a slightly congested cough raising white phlegm. He likely has some bronchiectasis as well. This was discussed with his daughter who came in the room during my exam.. (2) Acute on chronic diastolic heart failure Is this a current diagnosis for this admission?: Yes Plan: Patient appears like his failure is resolving. We will decrease his Lasix to once daily rather than twice daily. We will hopefully be able to discharge him in the next 24 hours. Will arrange follow-up cardiology for him at the daughter's request. (3) CAD (coronary artery disease) Is this a current diagnosis for this admission?: Yes Plan: He will continue his home regimen. He is status post CABG in the past. (4) Chronic renal failure Is this a current diagnosis for this admission?: Yes Plan: The family states that he does not have history of any sort of chronic kidney disease However it is documented in the records that he does. He has a creatinine of 1.7. Creatinine today is 1.87. We will cut diuretics back to once daily. I think he is close to being euvolemic (5) Hyperlipidemia Is this a current diagnosis for this admission?: Yes Plan: Continue atorvastatin (6) Hypertension Is this a current diagnosis for this admission?: Yes Plan: Quite stable. He will continue his home regimen (7) Atrial fibrillation Qualifiers: Atrial fibrillation type: paroxysmal Qualified Code(s): I48.0 - Paroxysmal atrial fibrillation Is this a current diagnosis for this admission?: Yes Plan: Rate controlled. - Time Time Spent with patient: 25-34 minutes Total Critical Time (Minutes): 20 Medications reviewed and adjusted accordingly: Yes Anticipated discharge: Home with Homehealth - Inpatient Certification Based on my medical assessment, after consideration of the patient's comorbidities, presenting symptoms, or acuity I expect that the services needed warrant INPATIENT care.: Yes I certify that my determination is in accordance with my understanding of Medicare's requirements for reasonable and necessary INPATIENT services [42 CFR 412.3e].: Yes Medical Necessity: Significant Comorbidiites Make Outpatient Treatment Too Risky, Risk of Complication if Not Cared For in Hospital
--- NOTE | 2018-06-02 09:45 | PDOC PROGRESS REPORT ---
Subjective Progress Note for:: 06/02/18 Subjective:: Patient seen resting in bed eating breakfast. He is awake, alert and alert. He is confused to place and time. He knows his name and birthday. He denies any chest pain, shortness of breath or dyspnea. He denies nausea, vomiting or abdominal pain. He denies any significant arthralgias or myalgias. He denies fever or chills overnight. Remaining review of systems are negative. Reason For Visit: ACUTE EXACERBATION CHF,HTN,ACUTE RESPIRATORY Physical Exam Vital Signs: Temp Pulse Resp BP Pulse Ox 98.4 F 104 H 16 98/72 L 93 06/02/18 08:00 06/02/18 08:29 06/02/18 08:29 06/02/18 08:00 06/02/18 09:30 Intake & Output 06/01/18 06/02/18 06/03/18 06:59 06:59 06:59 Intake Total 238 356 Output Total 450 Balance 238 -94 Weight 93.5 kg 84.4 kg General appearance: PRESENT: no acute distress, obese, well-developed, well- nourished Head exam: PRESENT: atraumatic, normocephalic Eye exam: PRESENT: conjunctiva pink, EOMI, PERRLA. ABSENT: scleral icterus Ear exam: PRESENT: normal external ear exam Mouth exam: PRESENT: moist, tongue midline Neck exam: ABSENT: carotid bruit, JVD, lymphadenopathy, thyromegaly Respiratory exam: PRESENT: crackles, decreased breath sounds - Left base, symmetrical, unlabored Cardiovascular exam: PRESENT: irregular rhythm, +S1, +S2 Pulses: PRESENT: normal dorsalis pedis pul Vascular exam: PRESENT: normal capillary refill GI/Abdominal exam: PRESENT: normal bowel sounds, soft. ABSENT: distended, guarding, mass, organolmegaly, rebound, tenderness Rectal exam: PRESENT: deferred Extremities exam: PRESENT: full ROM. ABSENT: calf tenderness, clubbing, pedal edema Neurological exam: PRESENT: alert, awake, oriented to person, CN II-XII grossly intact. ABSENT: motor sensory deficit Psychiatric exam: PRESENT: appropriate affect, normal mood. ABSENT: homicidal ideation, suicidal ideation Skin exam: PRESENT: dry, intact, warm. ABSENT: cyanosis, rash Results Laboratory Results: 05/31/18 05:19 06/01/18 05:09 05/29/18 05/29/18 05/29/18 11:30 20:40 20:40 Creatine Kinase 103 CK-MB (CK-2) 2.03 Troponin I 0.021 0.019 NT-Pro-B Natriuret Pep 3350 H 05/30/18 05/30/18 05/30/18 02:08 02:08 09:32 Creatine Kinase 97 102 CK-MB (CK-2) Troponin I 0.022 NT-Pro-B Natriuret Pep 05/30/18 05/30/18 09:32 09:32 Creatine Kinase CK-MB (CK-2) Troponin I 0.022 NT-Pro-B Natriuret Pep 1990 H Impressions: Chest CT 05/30/18 00:00 IMPRESSION: 1. CHRONIC PARENCHYMAL SCARRING. BRONCHIECTASIS. PATCHY SCATTERED GROUND-GLASS OPACITIES, NONSPECIFIC. THESE COULD BE DUE TO ATELECTASIS, PNEUMONITIS, OR LESS LIKELY DEVELOPING PULMONARY EDEMA. 2. LARGE HIATAL HERNIA. 3. NO OTHER SIGNIFICANT FINDING ON NON-CONTRASTED CHEST CT. Chest X-Ray 06/01/18 00:00 IMPRESSION: Atelectasis or early pneumonia left lower lobe. There is a background of chronic interstitial lung disease and bronchiectasis. Assessment and Plan - Diagnosis (1) Acute respiratory failure with hypoxia Is this a current diagnosis for this admission?: Yes Plan: He appears euvolemic. His lower extremity edema is gone he has mild crackles in the right base. He has a slightly congested cough raising white phlegm. He likely has some bronchiectasis as well. He is on daily prednisone and DuoNeb therapy. Chest x-ray yesterday looked improved. He does have underlying interstitial fibrosis. I discussed with his daughter he may benefit from home oxygen. She is now more agreeable to this. Also discussed palliative care consult to follow him as an outpatient. For his underlying chronic diastolic heart failure and interstitial lung disease. (2) Acute on chronic diastolic heart failure Is this a current diagnosis for this admission?: Yes Plan: He has been diuresed he appears euvolemic at the present time. (3) CAD (coronary artery disease) Is this a current diagnosis for this admission?: Yes Plan: He will continue his home regimen. He is status post CABG in the past. (4) Chronic renal failure Is this a current diagnosis for this admission?: Yes Plan: The family states that he does not have history of any sort of chronic kidney disease However it is documented in the records that he does. He has a creatinine of 1.7. Creatinine today is 1.87. We will cut diuretics back to once daily. I think he is close to being euvolemic (5) Hyperlipidemia Is this a current diagnosis for this admission?: Yes Plan: Continue atorvastatin (6) Hypertension Is this a current diagnosis for this admission?: Yes Plan: Quite stable. He will continue his home regimen (7) Atrial fibrillation Qualifiers: Atrial fibrillation type: paroxysmal Qualified Code(s): I48.0 - Paroxysmal atrial fibrillation Is this a current diagnosis for this admission?: Yes Plan: Rate controlled. - Time Time Spent with patient: 25-34 minutes Total Critical Time (Minutes): 25 Medications reviewed and adjusted accordingly: Yes Anticipated discharge: Home with Homehealth, Other - Palliative care - Inpatient Certification Based on my medical assessment, after consideration of the patient's comorbidities, presenting symptoms, or acuity I expect that the services needed warrant INPATIENT care.: Yes I certify that my determination is in accordance with my understanding of Medicare's requirements for reasonable and necessary INPATIENT services [42 CFR 412.3e].: Yes Medical Necessity: Significant Comorbidiites Make Outpatient Treatment Too Risky, Need For Continuous Telemetry Monitoring
[2018-06-02] MEDS ORDERED: PREDNISONE 20 MG TABLET PO SCH (10:00)
[2018-06-02] MEDS: DOCUSATE SODIUM 100 MG CAPSULE PO SCH (10:25)
[2018-06-02] MEDS: DONEPEZIL HCL 5 MG TABLET PO SCH (10:26)
[2018-06-02] MEDS: MEMANTINE HCL 10 MG TABLET PO SCH (10:30)
[2018-06-02] MEDS: ASPIRIN 81 MG TABLET, ENT COATED PO SCH (10:30)
[2018-06-02] MEDS: ENOXAPARIN SODIUM INJ 30 MG/0.3 ML DISP.SYRIN SUBCUT SCH (10:30)
[2018-06-02] MEDS: FUROSEMIDE 20 MG TABLET PO SCH (11:22)
[2018-06-02] MEDS: NIFEDIPINE 30 MG TAB.ER.24 PO SCH (11:23)
[2018-06-02] MEDS: METOPROLOL TARTRATE 25 MG TABLET PO SCH (11:23)
[2018-06-02] MEDS ORDERED: BISACODYL 5 MG TABEC PO ONE (15:30)
--- NOTE | 2018-06-02 15:49 | PDOC DISCHARGE SUMMARY ---
General - Admit/Disc Date/PCP Admission Date/Primary Care Provider: 05/30/18 18:18 HEIDY PETERSON MD Discharge Date: 06/02/18 - Discharge Diagnosis (1) Acute respiratory failure with hypoxia Is this a current diagnosis for this admission?: Yes (2) Acute on chronic diastolic heart failure Is this a current diagnosis for this admission?: Yes (3) CAD (coronary artery disease) Is this a current diagnosis for this admission?: Yes (4) Chronic renal failure Is this a current diagnosis for this admission?: Yes (5) Hyperlipidemia Is this a current diagnosis for this admission?: Yes (6) Hypertension Is this a current diagnosis for this admission?: Yes (7) Atrial fibrillation Is this a current diagnosis for this admission?: Yes - Additional Information Resuscitation Status: Do Not Resuscitate Discharge Diet: Cardiac Discharge Activity: Activity As Tolerated, Balance Activity w/Rest, Weigh Daily Prescriptions: Albuterol Sulfate [Proair Hfa Inhalation Aerosol 8.5 gm Mdi] 1 puff IH Q4 PRN #1 mdi PRN Reason: Nifedipine [Procardia Xl] 90 mg PO DAILY #1 tab.er.24 Prednisone [Deltasone 20 mg Tablet] 40 mg PO DAILY 4 Days #8 tablet Home Medications: Aspirin [Ecotrin] 81 mg PO DAILY 05/29/18 Benzonatate [Tessalon Perles 100 mg Capsule] 200 mg PO TIDP PRN 05/29/18 Donepezil HCl [Aricept] 5 mg PO DAILY 05/29/18 Doxazosin Mesylate [Cardura 2 mg Tablet] 2 mg PO QHS 05/29/18 Furosemide [Lasix 20 mg Tablet] 20 mg PO QAM 05/29/18 Lisinopril [Prinivil] 20 mg PO QHS 05/29/18 Lovastatin [Altoprev] 20 mg PO QHS 05/29/18 Memantine HCl [Namenda 10 mg Tablet] 10 mg PO DAILY 05/29/18 Metoprolol Tartrate [Lopressor 25 mg Tablet] 12.5 mg PO Q12 05/29/18 Tramadol HCl [Ultram 50 mg Tablet] 50 mg PO Q8HP PRN 05/29/18 Albuterol Sulfate [Proair Hfa Inhalation Aerosol 8.5 gm Mdi] 1 puff IH Q4 PRN #1 mdi 06/02/18 Furosemide [Lasix 20 mg Tablet] 20 mg PO DAILY tablet 06/02/18 Nifedipine [Procardia Xl] 90 mg PO DAILY #1 tab.er.24 06/02/18 Prednisone [Deltasone 20 mg Tablet] 40 mg PO DAILY 4 Days #8 tablet 06/02/18 History of Present Illness Patient complains of: Shortness of breath History of Present Illness: BRIGITTE VAUGHAN is a 87 year old male with underlying dementia. His past medical history significant for coronary artery disease status post CABG, hyperlipidemia, hypertension and reported history of chronic renal disease although the family states this is not the case. In any event the patient was brought to the hospital with a 2-day history of worsening shortness of breath and weakness. He was found to have an elevated BNP and a chest x-ray was concerning for vascular congestion. He was referred for admission. The patient himself is quite demented and it was difficult to get a good review of systems. Hospital Course Hospital Course: Patient was admitted to the hospitalist service on telemetry. He was diuresed with IV lasix bid over the next 3 days. His lower extremity edema resolved. He continued to have a congested cough. Chest xray showed resolution of vascular congestion but continued interstitial lung disease and left lower lobe atelectasis. He was given prednisone and duoneb nebulizers with some improvement. He was found to have oxygen saturation at rest of 90% on room air and 86% with walking. He improved to 94% with oxygen at 2l/min. We discussed home health nursing and palliative care consult for chronic disease management with his daughter She is in agreement Physical Exam Vital Signs: Temp Pulse Resp BP Pulse Ox 97.9 F 72 18 98/60 L 98 06/02/18 12:00 06/02/18 13:15 06/02/18 13:15 06/02/18 12:00 06/02/18 13:15 Intake & Output 06/01/18 06/02/18 06/03/18 06:59 06:59 06:59 Intake Total 238 356 600 Output Total 450 Balance 238 -94 600 Weight 93.5 kg 84.4 kg General appearance: PRESENT: no acute distress, obese, well-developed, well- nourished Head exam: PRESENT: atraumatic, normocephalic Eye exam: PRESENT: conjunctiva pink, EOMI, PERRLA. ABSENT: scleral icterus Ear exam: PRESENT: normal external ear exam Mouth exam: PRESENT: moist, tongue midline Neck exam: ABSENT: carotid bruit, JVD, lymphadenopathy, thyromegaly Respiratory exam: PRESENT: decreased breath sounds - left base, symmetrical, unlabored Cardiovascular exam: PRESENT: irregular rhythm, +S1, +S2 Pulses: PRESENT: normal dorsalis pedis pul Vascular exam: PRESENT: normal capillary refill GI/Abdominal exam: PRESENT: normal bowel sounds, soft. ABSENT: distended, guarding, mass, organolmegaly, rebound, tenderness Rectal exam: PRESENT: deferred Extremities exam: PRESENT: full ROM. ABSENT: calf tenderness, clubbing, pedal edema Neurological exam: PRESENT: alert, awake, oriented to person, oriented to place, oriented to time, oriented to situation, CN II-XII grossly intact. ABSENT: motor sensory deficit Psychiatric exam: PRESENT: appropriate affect, normal mood. ABSENT: homicidal ideation, suicidal ideation Skin exam: PRESENT: dry, intact, warm. ABSENT: cyanosis, rash Results Laboratory Results: 05/31/18 05:19 06/01/18 05:09 05/29/18 05/29/18 05/29/18 11:30 20:40 20:40 Creatine Kinase 103 CK-MB (CK-2) 2.03 Troponin I 0.021 0.019 NT-Pro-B Natriuret Pep 3350 H 05/30/18 05/30/18 05/30/18 02:08 02:08 09:32 Creatine Kinase 97 102 CK-MB (CK-2) Troponin I 0.022 NT-Pro-B Natriuret Pep 05/30/18 05/30/18 09:32 09:32 Creatine Kinase CK-MB (CK-2) Troponin I 0.022 NT-Pro-B Natriuret Pep 1990 H Impressions: Chest CT 05/30/18 00:00 IMPRESSION: 1. CHRONIC PARENCHYMAL SCARRING. BRONCHIECTASIS. PATCHY SCATTERED GROUND-GLASS OPACITIES, NONSPECIFIC. THESE COULD BE DUE TO ATELECTASIS, PNEUMONITIS, OR LESS LIKELY DEVELOPING PULMONARY EDEMA. 2. LARGE HIATAL HERNIA. 3. NO OTHER SIGNIFICANT FINDING ON NON-CONTRASTED CHEST CT. Chest X-Ray 06/01/18 00:00 IMPRESSION: Atelectasis or early pneumonia left lower lobe. There is a background of chronic interstitial lung disease and bronchiectasis. Qualifiers - * PATIENT BEING DISCHARGED WITH ANY OF THE FOLLOWING DIAGNOSIS: Heart Failure HF Pt being discharged on ACEI for LVEF less than 40%?: Yes HF Pt being discharged on ARBS for LVEF less than 40%?: Yes HF Pt with Afib discharged with Warfarin?: No Reason(s) for not prescribing Warfarin:: Drug declined by patient HF Pt discharged on evidence-based Beta Ebony:: Yes
[2018-06-02 16:14] VITALS: BP 94/62
--- NOTE | 2018-06-02 16:21 | ADVANCED CARE ---
- Diagnosis (1) Acute respiratory failure with hypoxia Diagnosis Current: Yes (2) Acute on chronic diastolic heart failure Diagnosis Current: Yes (3) CAD (coronary artery disease) Diagnosis Current: Yes (4) Chronic renal failure Diagnosis Current: Yes (5) Hyperlipidemia Diagnosis Current: Yes (6) Hypertension Diagnosis Current: Yes Attendance: Myself, patient's daughter Melanie Guzman and patient Resuscitation Status: Do Not Resuscitate Discussion: Goals of care discussion with patient's daughter, Melanie Guzman regarding his chronic diastolic heart failure, dementia, chronic kidney disease and chronic interstitial lung disease. She states she and her brother do not want him resuscitated. She is actually moved in to help take care of him. We discussed the option of having palliative care, and to keep tabs of his symptoms and ch ronic diseases. She is in agreement to this as well. She notes dad's dementia has gradually been worsening over the last several months. She states he sleeps much of the day and has very little interest in watching TV or interacting with others. We discussed the option of hospice care should his condition deteriorate over time. Palliative care can certainly help manage symptoms in the interim. She is agreeable to that as well. Care Planning Goals: Patient will be a DO NOT RESUSCITATE. We will arrange for home oxygen therapy, home health nursing and palliative care follow-up. Time Spent: 30 minutes
[2018-06-02] MEDS ORDERED: LISINOPRIL 10 MG TABLET PO SCH (22:00)
== END 2018-06-02 17:45 | disposition home health service (06) | DRG 291 ==
LOC: ER 11:55 → INTOOBSV 15:29 → EH 15:29 → 4W 18:57 → OBSVTOIN 05-30 18:18 → 4N 06-01 17:12
PROVIDERS: ADMIT Physician Assistant; ATTEND Internal Medicine
DX: I13.0 Hypertensive heart and chronic kidney disease with heart failure and stage 1 through stage 4 chronic kidney disease, or unspecified chronic kidney disease (principal); J96.01 Acute respiratory failure with hypoxia; I50.33 Acute on chronic diastolic (congestive) heart failure; N18.9 Chronic kidney disease, unspecified; I48.0 Paroxysmal atrial fibrillation; I25.10 Atherosclerotic heart disease of native coronary artery without angina pectoris; E78.00 Pure hypercholesterolemia, unspecified; N40.0 Benign prostatic hyperplasia without lower urinary tract symptoms; Z66 Do not resuscitate; Z79.82 Long term (current) use of aspirin; Z79.899 Other long term (current) drug therapy
CPT/HCPCS: 36415; 71045; 71046; 71250; 80048; 80053; 80061; 80069; 81001; 82550; 82553; 83036; 83735; 83880; 84100; 84484; 85025; 85027; 85379; 85610; 87804; 93005; 93010; 93306; 94640; 96374; 99291; G0378; J1650; J1940; J3490; J7512; J7620

== ENCOUNTER 2018-06-11 14:20 | Inpatient (IN) | payer OTHER, MEDICARE ==
[2018-06-11] MEDS ORDERED: FUROSEMIDE INJ/PF 40 MG/4 ML SDV IV ONE (14:48)
--- NOTE | 2018-06-11 14:52 | ER Document Report ---
ED General - General Stated Complaint: WEAKNESS Time Seen by Provider: 06/11/18 14:27 Mode of Arrival: Medic Information source: Patient, Emergency Med Personnel, [facility] Records Cannot obtain history due to: Dementia Notes: 87-year-old male with dementia, coronary artery disease, atrial fibrillation, hyperlipidemia, congestive heart failure presents via EMS from home after a reported syncopal episode. EMS states that family members called when the patient stood up from his chair appeared to be passing out. Patient was lowered to the ground by the family and became alert and awake again. Patient was incontinent of urine but EMS and family deny any history of seizure, seizure- like activity, postictal period. Patient is alert and oriented x1. He denies any headache, chest pain, shortness of breath, abdominal pain, nausea, vomiting, cough. EMS reports that the patient was orthostatic positive. Patient was discharged from [facility] on June 02, 2018. TRAVEL OUTSIDE OF THE [place] IN LAST 30 DAYS: No - HPI Onset: Just prior to arrival Onset/Duration: Sudden Quality of pain: No pain Severity: None Associated symptoms: denies: Chest pain, Nausea, Vomiting, Shortness of breath Exacerbated by: Denies Relieved by: Denies Similar symptoms previously: Yes Recently seen / treated by doctor: Yes - Related Data Allergies/Adverse Reactions: No Known Allergies Allergy (Verified 05/29/18 12:20) Past Medical History - General Information source: Emergency Med Personnel, [facility] Records Cannot obtain history due to: Dementia - Social History Smoking Status: Never Smoker Frequency of alcohol use: None Drug Abuse: None Lives with: Family Family History: Reviewed & Not Pertinent Patient has suicidal ideation: No Patient has homicidal ideation: No - Past Medical History Cardiac Medical History: Reports: Hx Atrial Fibrillation, Hx Coronary Artery Disease, Hx Hypercholesterolemia, Hx Hypertension Pulmonary Medical History: Denies: Hx Asthma, Hx COPD Renal/ Medical History: Reports: Hx Benign Prostatic Hyperplasia, Hx Kidney Stones. Denies: Hx Peritoneal Dialysis Musculoskeletal Medical History: Reports Hx Arthritis Psychiatric Medical History: Reports: Hx Dementia Past Surgical History: Reports: Hx Appendectomy, Hx Cardiac Catheterization, Hx Cardiac Surgery - failed bypass, Hx Coronary Artery Bypass Graft, Hx Herniorrhaphy. Denies: Hx Pacemaker - Immunizations Hx Diphtheria, Pertussis, Tetanus Vaccination: No Hx Pneumococcal Vaccination: 03/06/07 Review of Systems - Review of Systems -: Yes ROS unobtainable due to patient's medical condition Physical Exam - Vital signs Vitals: Resp Pulse Ox 30 H 98 06/11/18 14:39 06/11/18 14:39 - Notes Notes: PHYSICAL EXAMINATION: GENERAL: Mild distress. HEAD: Atraumatic, normocephalic. EYES: Pupils equal round and reactive to light, extraocular movements intact, sclera anicteric, conjunctiva are normal. ENT: Nares patent, oropharynx clear without exudates. Dry mucous membranes. NECK: Normal range of motion, supple without lymphadenopathy LUNGS: Tachypnea, diminished breath sounds in all lung tirado. HEART: Irregular rhythm, regular rate, no murmurs. ABDOMEN: Soft, nontender, nondistended abdomen. No guarding, no rebound. No masses appreciated. Musculoskeletal: Normal range of motion, no pitting or edema. No cyanosis. NEUROLOGICAL: Cranial nerves grossly intact. Normal speech, Normal sensory, motor exams PSYCH: Alert and oriented x1 SKIN: Warm, Dry, normal turgor, no rashes or lesions noted. Course - Re-evaluation Re-evalutation: Laboratory 06/11/18 06/11/18 06/11/18 14:45 14:45 14:45 WBC 9.9 RBC 4.78 Hgb 15.4 Hct 44.9 MCV 94 MCH 32.2 MCHC 34.3 RDW 13.6 Plt Count 209 Seg Neutrophils % 72.1 Lymphocytes % 14.6 Monocytes % 9.4 Eosinophils % 3.6 Basophils % 0.3 Absolute Neutrophils 7.1 Absolute Lymphocytes 1.4 Absolute Monocytes 0.9 Absolute Eosinophils 0.4 Absolute Basophils 0.0 VBG pH VBG pCO2 VBG HCO3 VBG Base Excess Sodium 138.8 Potassium 4.4 Chloride 101 Carbon Dioxide 31 H Anion Gap 7 BUN 37 H Creatinine 2.05 H Est GFR ( Amer) 37 L Est GFR (Non-Af Amer) 31 L Glucose 106 Calcium 8.9 Total Bilirubin 0.6 Direct Bilirubin 0.3 Neonat Total Bilirubin Not Reportable Neonat Direct Bilirubin Not Reportable Neonat Indirect Bili Not Reportable AST 22 ALT 23 Alkaline Phosphatase 78 Creatine Kinase 33 L CK-MB (CK-2) 0.74 Troponin I < 0.012 NT-Pro-B Natriuret Pep 956 H Total Protein 6.8 Albumin 3.6 06/11/18 14:45 WBC RBC Hgb Hct MCV MCH MCHC RDW Plt Count Seg Neutrophils % Lymphocytes % Monocytes % Eosinophils % Basophils % Absolute Neutrophils Absolute Lymphocytes Absolute Monocytes Absolute Eosinophils Absolute Basophils VBG pH 7.34 VBG pCO2 60.2 VBG HCO3 31.7 VBG Base Excess 4.0 Sodium Potassium Chloride Carbon Dioxide Anion Gap BUN Creatinine Est GFR ( Amer) Est GFR (Non-Af Amer) Glucose Calcium Total Bilirubin Direct Bilirubin Neonat Total Bilirubin Neonat Direct Bilirubin Neonat Indirect Bili AST ALT Alkaline Phosphatase Creatine Kinase CK-MB (CK-2) Troponin I NT-Pro-B Natriuret Pep Total Protein Albumin Chest X-Ray 06/11/18 14:48 IMPRESSION: Cardiomegaly with no raffaele pulmonary edema. Chronic lung changes. Head CT 06/11/18 15:40 IMPRESSION: CHRONIC MICROVASCULAR ISCHEMIA. NO ACUTE IMAGING FINDINGS IN THE BRAIN. EVIDENCE OF ACUTE STROKE: NO. Temp Pulse Resp BP Pulse Ox 97.8 F 96 25 H 97/69 L 97 06/11/18 15:14 06/11/18 15:14 06/11/18 15:14 06/11/18 15:14 06/11/18 15:14 06/11/18 15:39 Patient reevaluated and is resting comfortably on BiPAP. Daughter is now at the bedside and states that the patient was outside when her and the aide began to walk him in he suddenly became confused and was not answering questions. She states that they got him to his bed when he suddenly buckled and went down to his knees. She states that his eyes rolled back and they lowered him to the ground. Patient remained altered for approximately 1 minute and then is now reportedly back to baseline. Daughter does report a decrease in appetite, fluids. 06/11/18 15:40 06/11/18 15:48 Side ultrasound performed of the heart and lungs. No significant pericardial effusion appreciated. Patient does have diffuse B-lines in all lung tirado indicative of interstitial edema. CBC did has no leukocytosis or CMP is significant for a creatinine of 2.05 which is an increase from his creatinine upon discharge which was 1.6. 06/11/18 16:27 Patient is orthostatic positive. 06/11/18 17:02 Patient reevaluated and is resting more comfortably on BiPAP. CT of the head was obtained and showed no acute process. Chest x-ray showed cardiomegaly without raffaele pulmonary edema. Patient will be accepted by Dr. Taylor for telemetry. 06/11/18 17:07 - Vital Signs Vital signs: Temp Pulse Resp BP Pulse Ox 97.8 F 96 25 H 97/69 L 97 06/11/18 15:14 06/11/18 15:14 06/11/18 15:14 06/11/18 15:14 06/11/18 15:14 - Laboratory Result Diagrams: 06/11/18 14:45 06/11/18 14:45 Laboratory results interpreted by me: 06/11/18 06/11/18 14:45 14:45 Carbon Dioxide 31 H BUN 37 H Creatinine 2.05 H Est GFR ( Amer) 37 L Est GFR (Non-Af Amer) 31 L Creatine Kinase 33 L NT-Pro-B Natriuret Pep 956 H - Diagnostic Test Radiology reviewed: Image reviewed - EKG Interpretation by Me Rate: Normal Rhythm: A.Fib [place]/QRS: RBBB When compared to previous EKG there are: No significant change Discharge - Discharge Clinical Impression: Tachypnea, Orthostatic hypotension, ROEL (acute kidney injury), Dehydration Congestive heart failure Qualifiers: Heart failure type: unspecified Heart failure chronicity: unspecified Qualified Code(s): I50.9 - Heart failure, unspecified Hypotension Qualifiers: Hypotension type: unspecified hypotension type Qualified Code(s): I95.9 - Hypotension, unspecified Dementia Qualifiers: Dementia type: Alzheimer's disease Alzheimer's disease onset: late-onset Dementia behavioral disturbance: with behavioral disturbance Qualified Code(s): G30.1 - Alzheimer's disease with late onset Atrial fibrillation Qualifiers: Atrial fibrillation type: unspecified Qualified Code(s): I48.91 - Unspecified atrial fibrillation Condition: Good Disposition: ADMITTED INPATIENT Admitting Provider: Isela (Hospitalist) Unit Admitted: Telemetry
[2018-06-11 15:05] LABS: VENOUS BLOOD HCO3 31.7 mmol/L (20-32); VENOUS BLOOD PCO2 60.2 mmHg (35-63); VENOUS BLOOD PH 7.34 (7.30-7.42)
[2018-06-11 15:12] LABS: ABSOLUTE EOSINOPHILS # (AUTO) 0.4 10^3/uL (0.0-0.6); ABSOLUTE LYMPHOCYTES (AUTO) 1.4 10^3/uL (0.5-4.7); ABSOLUTE MONOCYTES (AUTO) 0.9 10^3/uL (0.1-1.4); ABSOLUTE NEUT (AUTO) 7.1 10^3/uL (1.7-8.2); BASOPHILS % (AUTO) 0.3 % (0-2); EOSINOPHILS % (AUTO) 3.6 % (0-6); HEMATOCRIT 44.9 % (37.9-51.0); HEMOGLOBIN 15.4 g/dL (13.5-17.0); LYMPHOCYTES % (AUTO) 14.6 % (13-45); MEAN CORPUSCULAR HEMOGLOBIN 32.2 pg (27.0-33.4); MEAN CORPUSCULAR HGB CONC 34.3 g/dL (32.0-36.0); MEAN CORPUSCULAR VOLUME 94 fl (80-97); MONOCYTES % (AUTO) 9.4 % (3-13); PLATELET COUNT 209 10^3/uL (150-450); RED BLOOD COUNT 4.78 10^6/uL (4.35-5.55); RED CELL DISTRIBUTION WIDTH 13.6 % (11.5-14.0); SEGMENTED NEUTROPHILS % (AUTO) 72.1 % (42-78); TOTAL CELLS COUNTED % (AUTO) 100 %; WHITE BLOOD COUNT 9.9 10^3/uL (4.0-10.5)
[2018-06-11 15:29] LABS: ALANINE AMINOTRANSFERASE 23 U/L (21-72); ALBUMIN 3.6 g/dL (3.5-5.0); ALKALINE PHOSPHATASE 78 U/L (38-126); ANION GAP 7 (5-19); ASPARTATE AMINO TRANSFERASE 22 U/L (17-59); BILIRUBIN,DIRECT 0.3 mg/dL (0.0-0.4); BILIRUBIN,TOTAL 0.6 mg/dL (0.2-1.3); BLOOD UREA NITROGEN 37 mg/dL (7-20); CALCIUM 8.9 mg/dL (8.4-10.2); CARBON DIOXIDE 31 mmol/L (22-30); CHLORIDE 101 mmol/L (98-107); CREATINE KINASE 33 U/L (55-170); GLUCOSE 106 mg/dL (75-110); POTASSIUM 4.4 mmol/L (3.6-5.0); SODIUM 138.8 mmol/L (137-145); TOTAL PROTEIN 6.8 g/dL (6.3-8.2)
[2018-06-11 15:41] LABS: CREATINE KINASE MB 0.74 ng/mL (<4.55); NT PRO BNP 956 pg/mL (<450); TROPONIN I < 0.012 ng/mL
--- NOTE | 2018-06-11 16:09 | RADIOLOGY REPORT (SQ) ---
EXAM DESCRIPTION: CHEST SINGLE VIEW COMPLETED DATE/TIME: 06/11/2018 3:41 pm REASON FOR STUDY: syncope chf COMPARISON: 06/01/2018 EXAM PARAMETERS: NUMBER OF VIEWS: One view. TECHNIQUE: Single frontal radiographic view of the chest acquired. RADIATION DOSE: NA LIMITATIONS: None. FINDINGS: LUNGS AND PLEURA: There appear to be mild chronic interstitial changes. No acute infiltra te is seen. MEDIASTINUM AND HILAR STRUCTURES: No masses. Contour normal. HEART AND VASCULAR STRUCTURES: Cardiomegaly. No raffaele pulmonary edema. BONES: No acute findings. HARDWARE: Sternotomy wires. OTHER: No other significant finding. IMPRESSION: Cardiomegaly with no raffaele pulmonary edema. Chronic lung changes. TECHNICAL DOCUMENTATION: JOB ID: [id number] [employer]- All Rights Reserved Reading location - IP/workstation name: [email or web address]
--- NOTE | 2018-06-11 16:17 | RADIOLOGY REPORT (SQ) ---
EXAM DESCRIPTION: CT HEAD WITHOUT COMPLETED DATE/TIME: 06/11/2018 4:07 pm REASON FOR STUDY: confusion COMPARISON: None. TECHNIQUE: Axial images acquired through the brain without intravenous contrast. Images reviewed wi th bone, brain and subdural windows. Additional sagittal and coronal reconstructions were generated. Images stored on PACS. All CT scanners at this facility use dose modulation, iterative reconstruction, and/or weight based d osing when appropriate to reduce radiation dose to as low as reasonably achievable (ALARA). [facility]: Dose Right [facility]: CareDose [facility]: Dose Right [facility]: Teradose 4D [facility]: [employer] Software RADIATION DOSE: CT Rad equipment meets quality standard of care and radiation dose reduction techniq ues were employed. CTDIvol: 53.2 mGy. DLP: 991 mGy-cm. mGy. LIMITATIONS: None. FINDINGS: VENTRICLES: Normal size and contour. CEREBRUM: Cortical atrophy. No masses. No hemorrhage. No midline shift. No evidence for acute inf arction. Areas of low density in the white matter most likely chronic small vessel ischemic changes. CEREBELLUM: No masses. No hemorrhage. No alteration of density. No evidence for acute infarction. EXTRAAXIAL SPACES: No fluid collections. No masses. ORBITS AND GLOBE: No intra- or extraconal masses. Normal contour of globe without masses. CALVARIUM: No fracture. PARANASAL SINUSES: No fluid or mucosal thickening. SOFT TISSUES: No mass or hematoma. OTHER: No other significant finding. IMPRESSION: CHRONIC MICROVASCULAR ISCHEMIA. NO ACUTE IMAGING FINDINGS IN THE BRAIN. EVIDENCE OF ACUTE STROKE: NO. COMMENT: Quality ID # [id number]: Final reports with documentation of one or more dose reduction techniques (e.g., Automated exposure control, adjustment of the mA and/or kV according to patient size, use of iterative reconstruction technique) TECHNICAL DOCUMENTATION: JOB ID: [id number] [employer]- All Rights Reserved Reading location - IP/workstation name: [email or web address]
[2018-06-11] MEDS ORDERED: NORMAL SALINE 1000 ML 1,000 ML IV ONE (16:39)
[2018-06-11] MEDS ORDERED: BENZONATATE 100 MG CAPSULE PO PRN (17:18)
[2018-06-11] MEDS ORDERED: ALBUTEROL SULFATE HFA (90 MCG/PUFF) 200 PUFF/8.5 GM MDI IH PRN (17:18)
[2018-06-11] MEDS ORDERED: ONDANSETRON HCL INJ/PF 4 MG/2 ML SDV IV PRN (17:20)
[2018-06-11] MEDS ORDERED: LEVALBUTEROL HCL NEB 0.63 MG/3 ML AMPUL NEB PRN (17:20)
[2018-06-11] MEDS ORDERED: ENOXAPARIN SODIUM INJ 40 MG/0.4 ML DISP.SYRIN SUBCUT SCH (17:30)
[2018-06-11] MEDS ORDERED: NIFEDIPINE 90 MG PO SCH (17:30)
--- NOTE | 2018-06-11 17:50 | PDOC H&P ---
History of Present Illness Admission Date/PCP: 06/11/18 16:51 HEIDY PETERSON MD Patient complains of: dizziness /fall History of Present Illness: BRIGITTE VAUGHAN is a 87 year old male with history of congestive heart failure, aortic valve replacement, coronary artery disease, atrial fibrillation, hyperlipidemia, dementia brought in by family members after syncopal episode at home. Patient felt dizzy and stood up from the chair and passed out family members noticed eyes rolled up not responded on the EMS was called. No seizure activity was noted. In the emergency room he was found to be orthostatic positive in shortness of breath and placed on BiPAP. Patient was given IV Lasix 1 dose. medical consult was called for shortness of breath hypotension AK I /dizziness/orthostatic hypotension. Went to see the patient in the emergency room patient was on BiPAP. Most of the history got from the daughter. She says dad wishes are DNR/DNI. Past Medical History Cardiac Medical History: Reports: Atrial Fibrillation, Coronary Artery Disease, Hyperlipidema, Hypertension Pulmonary Medical History: Denies: Asthma, Chronic Obstructive Pulmonary Disease (COPD) Musculoskeltal Medical History: Reports: Arthritis Psychiatric Medical History: Reports: Dementia Hematology: Reports: Anemia Past Surgical History Past Surgical History: Reports: Appendectomy, Cardiac Catheterization, Coronary Artery Bypass Graft, Herniorrhaphy Denies: Pacemaker Social History Information Source: Patient, Legal Guardian Lives with: Family Smoking Status: Never Smoker Frequency of Alcohol Use: None Hx Recreational Drug Use: No Hx Prescription Drug Abuse: No - Advance Directive Resuscitation Status: Do Not Resuscitate Family History Family History: Reviewed & Not Pertinent Parental Family History Reviewed: Yes - Family history of heart disease Children Family History Reviewed: Yes Sibling(s) Family History Reviewed.: Yes Medication/Allergy Home Medications: Aspirin [Ecotrin] 81 mg PO DAILY 05/29/18 Benzonatate [Tessalon Perles 100 mg Capsule] 200 mg PO TIDP PRN 05/29/18 Donepezil HCl [Aricept] 5 mg PO DAILY 05/29/18 Doxazosin Mesylate [Cardura 2 mg Tablet] 2 mg PO QHS 05/29/18 Furosemide [Lasix 20 mg Tablet] 20 mg PO QAM 05/29/18 Lisinopril [Prinivil] 20 mg PO QHS 05/29/18 Lovastatin [Altoprev] 20 mg PO QHS 05/29/18 Memantine HCl [Namenda 10 mg Tablet] 10 mg PO DAILY 05/29/18 Metoprolol Tartrate [Lopressor 25 mg Tablet] 12.5 mg PO Q12 05/29/18 Tramadol HCl [Ultram 50 mg Tablet] 50 mg PO Q8HP PRN 05/29/18 Albuterol Sulfate [Proair Hfa Inhalation Aerosol 8.5 gm Mdi] 1 puff IH Q4 PRN #1 mdi 06/02/18 Furosemide [Lasix 20 mg Tablet] 20 mg PO DAILY tablet 06/02/18 Nifedipine [Procardia Xl] 90 mg PO DAILY #1 tab.er.24 06/02/18 Prednisone [Deltasone 20 mg Tablet] 40 mg PO DAILY 4 Days #8 tablet 06/02/18 Allergies/Adverse Reactions: No Known Allergies Allergy (Verified 05/29/18 12:20) Review of Systems Constitutional: PRESENT: fatigue, weakness, weight loss. ABSENT: fever(s) Eyes: ABSENT: visual disturbances Ears: ABSENT: hearing changes Nose, Mouth, and Throat: ABSENT: sore throat Respiratory: PRESENT: dyspnea. ABSENT: cough, hemoptysis Gastrointestinal: ABSENT: constipation, diarrhea, nausea, vomiting Genitourinary: ABSENT: dysuria, hematuria Neurological: PRESENT: dizziness, syncope, weakness Psychiatric: ABSENT: anxiety, depression, homidical ideation, suicidal ideation Physical Exam Vital Signs: Temp Pulse Resp BP Pulse Ox 97.8 F 96 24 H 97/69 L 100 06/11/18 15:14 06/11/18 15:14 06/11/18 17:00 06/11/18 15:14 06/11/18 17:00 Intake & Output 06/10/18 06/11/18 06/12/18 06:59 06:59 06:59 Weight 94.347 kg General appearance: PRESENT: mild distress, other - Well-built elderly male on BiPAP. Head exam: PRESENT: atraumatic Eye exam: PRESENT: PERRLA Mouth exam: PRESENT: moist, tongue midline Teeth exam: PRESENT: edentulous Neck exam: ABSENT: carotid bruit, JVD, lymphadenopathy, thyromegaly Respiratory exam: PRESENT: decreased breath sounds Cardiovascular exam: PRESENT: irregular rhythm, systolic murmur, tachycardia GI/Abdominal exam: PRESENT: normal bowel sounds, soft. ABSENT: distended, guarding, mass, organolmegaly, rebound, tenderness Extremities exam: PRESENT: full ROM. ABSENT: calf tenderness, clubbing, pedal edema Neurological exam: PRESENT: alert, awake, other - Vision has a dementia. ABSENT: oriented to person, oriented to place, oriented to time Psychiatric exam: PRESENT: appropriate affect, normal mood. ABSENT: homicidal ideation, suicidal ideation Results Laboratory Results: 06/11/18 14:45 06/11/18 14:45 06/11/18 06/11/18 06/11/18 14:45 14:45 14:45 WBC 9.9 RBC 4.78 Hgb 15.4 Hct 44.9 MCV 94 MCH 32.2 MCHC 34.3 RDW 13.6 Plt Count 209 Seg Neutrophils % 72.1 Lymphocytes % 14.6 Monocytes % 9.4 Eosinophils % 3.6 Basophils % 0.3 Absolute Neutrophils 7.1 Absolute Lymphocytes 1.4 Absolute Monocytes 0.9 Absolute Eosinophils 0.4 Absolute Basophils 0.0 VBG pH 7.34 VBG pCO2 60.2 VBG HCO3 31.7 VBG Base Excess 4.0 Sodium 138.8 Potassium 4.4 Chloride 101 Carbon Dioxide 31 H Anion Gap 7 BUN 37 H Creatinine 2.05 H Est GFR ( Amer) 37 L Est GFR (Non-Af Amer) 31 L Glucose 106 Calcium 8.9 Total Bilirubin 0.6 AST 22 ALT 23 Alkaline Phosphatase 78 Total Protein 6.8 Albumin 3.6 06/11/18 06/11/18 14:45 14:45 Creatine Kinase 33 L CK-MB (CK-2) 0.74 Troponin I < 0.012 NT-Pro-B Natriuret Pep 956 H Impressions: Chest X-Ray 06/11/18 14:48 IMPRESSION: Cardiomegaly with no raffaele pulmonary edema. Chronic lung changes. Head CT 06/11/18 15:40 IMPRESSION: CHRONIC MICROVASCULAR ISCHEMIA. NO ACUTE IMAGING FINDINGS IN THE BRAIN. EVIDENCE OF ACUTE STROKE: NO. Assessment and Plan - Diagnosis (1) ROEL (acute kidney injury) Is this a current diagnosis for this admission?: Yes Plan: 06/11/2018-elderly male with multiple medical problems came in with worsening renal function as per the family he is fluid intake is very very minimal on the unit output is also decreased. He has a syncopal episode in the house. Patient was orthostatic in the emergency room. Baseline creatinine is around 1.7-1.8 it was sent to 2.05. Probably patient is behind the fluids AK I most likely secondary to diuretic is taking at home and poor oral intake. Plan to put him in telemetry is DNR/DNI given normal saline 50 cc/h to watch for the fluid overload. To hold Lasix. Restart his home medications. GI prophylaxis DVT prophylaxis provided. Aspiration fall seizure precautions are requested. PT consult was requested. dry dip worker consult was requested for placement. to check The labs again tomorrow. (2) Congestive heart failure Qualifiers: Heart failure type: unspecified Heart failure chronicity: unspecified Qualified Code(s): I50.9 - Heart failure, unspecified Is this a current diagnosis for this admission?: No Plan: 06/11/2018-echocardiogram was done in May 2018. Left ventricular ejection fraction is normal. But patient has grade 1/grade 4 mild diastolic dysfunction. Which was chronic. Patient is on Lasix at home looks like he is dehydrated. Orthostatics positive in the ER. Chest x-ray no fluid overload. No pedal edema. Started on IV fluids normal saline 50 cc/h to watch for the fluid overload. (3) Hypotension Qualifiers: Hypotension type: unspecified hypotension type Qualified Code(s): I95.9 - Hypotension, unspecified Is this a current diagnosis for this admission?: Yes Plan: 06/11/2018-patient's blood pressures in the emergency room is 97/69 with heart rate of 78 and worsening kidney function orthostatics are positive in the ER. Dehydration probably prerenal because of the Lasix use at home. Family is also saying patient has poor oral intake. Plan to give IV fluids normal saline 50 cc/h. Watch for the fluid overload. (4) Dementia Qualifiers: Dementia type: Alzheimer's disease Alzheimer's disease onset: late-onset Dementia behavioral disturbance: with behavioral disturbance Qualified Code(s): G30.1 - Alzheimer's disease with late onset; F02.81 - Dementia in other diseases classified elsewhere with behavioral disturbance Is this a current diagnosis for this admission?: No Plan: 06/11/2018-patient has history of dementia he is on Namenda 10 mg daily donezepil 5 mg daily plan is to continue the medications during the hospital stay. (5) Atrial fibrillation Qualifiers: Atrial fibrillation type: unspecified Qualified Code(s): I48.91 - Unspecified atrial fibrillation Is this a current diagnosis for this admission?: No Plan: 06/11/2018-patient has history of atrial fibrillation only has aspirin at home. Because of his age better to hold off on anticoagulation family does not want to start him on any Eliquis or Xarelto. (6) Hypertension Is this a current diagnosis for this admission?: No Plan: 06/11/2018-patient has history of hypertension at the time of admission today patient is hypotensive orthostatics positive so antihypertensives are on hold. (7) Syncope Is this a current diagnosis for this admission?: Yes Plan: 06/11/2018-patient has a syncopal episode at home. Orthostatics positive in the ER. Patient looks dehydrated. Aspiration fall seizure precautions are requested. CT head was negative for acute changes. To give IV fluids normal saline at 50 cc/h and watch for the fluid overload. (8) Hypoxia Is this a current diagnosis for this admission?: Yes Plan: 06/11/2018-patient was hypoxic urgency room pulse ox is less than 80% requiring BiPAP. Hypoxia may be secondary to volume depletion. X-ray was positive for cardiomegaly negative for pulmonary edema or pneumonia. - Time Time Spent with patient: 25-34 minutes Smoking Cessation Education: over 10 minutes Medications reviewed and adjusted accordingly: Yes Anticipated discharge: SNF
--- NOTE | 2018-06-11 17:52 | ADVANCED CARE ---
- Diagnosis (1) ROEL (acute kidney injury) Diagnosis Current: Yes (2) Congestive heart failure Diagnosis Current: No (3) Hypotension Diagnosis Current: Yes (4) Dementia Diagnosis Current: No (5) Atrial fibrillation Diagnosis Current: No (6) Hypertension Diagnosis Current: No (7) Syncope Diagnosis Current: Yes (8) Hypoxia Diagnosis Current: Yes Attendance: Advance care plan discussed with the daughter and other family members. They want her dad to be DNR/DNI. Discussed about discharge plan they are not sure whether to take him home or put him in a nursing facility at the time of admission. Resuscitation Status: Do Not Resuscitate Care Planning Goals: Goals are safely discharge the patient to the to the [facility] with [facility]. Document(s) Completed: DNR/DNI papers are in the chart. Time Spent: more than 20 minutes
[2018-06-11 18:34] LABS: ARTERIAL BLOOD BASE EXCESS 3.3 mmol/L; ARTERIAL BLOOD H2CO3 1.36 mmol/L (1.05-1.35); ARTERIAL BLOOD HCO3 28.5 mmol/L (20-24); ARTERIAL BLOOD O2 SATURATION 98.6 % (94-98); ARTERIAL BLOOD PCO2 45.2 mmHg (35-45); ARTERIAL BLOOD PH 7.42 (7.35-7.45); ARTERIAL BLOOD PO2 130.2 mmHg (80-100); ARTERIAL BLOOD TOTAL CO2 29.9 mmol/L (23-27)
[2018-06-11 18:37] LABS: ARTERIAL BLOOD FIO2 50%
[2018-06-11 19:07] LABS: CREATINE KINASE MB 0.67 ng/mL (<4.55); TROPONIN I 0.021 ng/mL
[2018-06-11] MEDS: METOPROLOL TARTRATE 25 MG TABLET PO SCH (19:27)
[2018-06-11] MEDS: ENOXAPARIN SODIUM INJ 30 MG/0.3 ML DISP.SYRIN SUBCUT SCH (19:43)
[2018-06-11] MEDS: MEMANTINE HCL 10 MG TABLET PO SCH (19:46)
[2018-06-11] MEDS: ASPIRIN 81 MG TABLET, ENT COATED PO SCH (19:46)
[2018-06-11] MEDS: DONEPEZIL HCL 5 MG TABLET PO SCH (19:46)
--- NOTE | 2018-06-11 20:47 | EKG REPORT ---
SEVERITY:- ABNORMAL ECG - ATRIAL FIBRILLATION, V-RATE 70-112 RIGHT BUNDLE BRANCH BLOCK : Confirmed by: Anupam Agustin 11-Jun-2018 20:46:36
[2018-06-11] MEDS: DOXAZOSIN MESYLATE 2 MG TABLET PO SCH (21:17)
[2018-06-11] MEDS: ATORVASTATIN CALCIUM 10 MG TABLET PO SCH (21:17)
[2018-06-11] MEDS ORDERED: (PENDING PHARMACY ID) (Lovastatin [Altoprev] 20 MG) PO SCH (22:00)
[2018-06-12] MEDS: NORMAL SALINE 1000 ML 1,000 ML IV PRN ×3 (00:41→17:46)
[2018-06-12 01:08] LABS: CREATINE KINASE MB 0.6 ng/mL (<4.55); TROPONIN I 0.019 ng/mL
[2018-06-12] MEDS: METOPROLOL TARTRATE 25 MG TABLET PO SCH ×2 (05:02→17:15)
[2018-06-12 07:05] LABS: ABSOLUTE EOSINOPHILS # (AUTO) 0.3 10^3/uL (0.0-0.6); ABSOLUTE LYMPHOCYTES (AUTO) 1.9 10^3/uL (0.5-4.7); ABSOLUTE NEUT (AUTO) 6.4 10^3/uL (1.7-8.2); BASOPHILS % (AUTO) 0.3 % (0-2); EOSINOPHILS % (AUTO) 3.6 % (0-6); HEMATOCRIT 42.7 % (37.9-51.0); HEMOGLOBIN 14.6 g/dL (13.5-17.0); LYMPHOCYTES % (AUTO) 19.3 % (13-45); MEAN CORPUSCULAR HEMOGLOBIN 32.2 pg (27.0-33.4); MEAN CORPUSCULAR HGB CONC 34.1 g/dL (32.0-36.0); MEAN CORPUSCULAR VOLUME 94 fl (80-97); MONOCYTES % (AUTO) 10.7 % (3-13); PLATELET COUNT 177 10^3/uL (150-450); RED BLOOD COUNT 4.52 10^6/uL (4.35-5.55); RED CELL DISTRIBUTION WIDTH 13.5 % (11.5-14.0); SEGMENTED NEUTROPHILS % (AUTO) 66.1 % (42-78); TOTAL CELLS COUNTED % (AUTO) 100 %; WHITE BLOOD COUNT 9.7 10^3/uL (4.0-10.5)
[2018-06-12 07:36] LABS: CREATINE KINASE MB 0.64 ng/mL (<4.55); TROPONIN I 0.014 ng/mL
[2018-06-12 07:45] LABS: ALANINE AMINOTRANSFERASE 22 U/L (21-72); ALBUMIN 3.3 g/dL (3.5-5.0); ALKALINE PHOSPHATASE 74 U/L (38-126); ANION GAP 8 (5-19); ASPARTATE AMINO TRANSFERASE 18 U/L (17-59); BILIRUBIN,DIRECT 0.3 mg/dL (0.0-0.4); BILIRUBIN,TOTAL 0.7 mg/dL (0.2-1.3); BLOOD UREA NITROGEN 37 mg/dL (7-20); CALCIUM 8.6 mg/dL (8.4-10.2); CARBON DIOXIDE 29 mmol/L (22-30); CHLORIDE 100 mmol/L (98-107); GLUCOSE 89 mg/dL (75-110); POTASSIUM 4.5 mmol/L (3.6-5.0); SODIUM 137.2 mmol/L (137-145); TOTAL PROTEIN 6.3 g/dL (6.3-8.2)
[2018-06-12] MEDS: ASPIRIN 81 MG TABLET, ENT COATED PO SCH (10:20)
[2018-06-12] MEDS: MEMANTINE HCL 10 MG TABLET PO SCH (10:21)
[2018-06-12] MEDS: ENOXAPARIN SODIUM INJ 30 MG/0.3 ML DISP.SYRIN SUBCUT SCH (10:21)
[2018-06-12] MEDS: DONEPEZIL HCL 5 MG TABLET PO SCH (10:21)
[2018-06-12 12:41] LABS: APPEARANCE,URINE CLEAR; BILIRUBIN,URINE NEGATIVE (NEGATIVE); COLOR,URINE YELLOW; GLUCOSE, URINE NEGATIVE (NEGATIVE); KETONES,URINE NEGATIVE (NEGATIVE); LEUKOCYTE ESTERASE,URINE NEGATIVE (NEGATIVE); NITRITE,URINE NEGATIVE (NEGATIVE); PROTEIN,URINE NEGATIVE (NEGATIVE); URINE SPECIFIC GRAVITY 1.013; UROBILINOGEN,URINE NEGATIVE mg/dL (<2.0)
--- NOTE | 2018-06-12 17:20 | PDOC PROGRESS REPORT ---
Subjective Progress Note for:: 06/12/18 Subjective:: This is a very pleasant 87 years old male patient with multiple comorbidities including chronic A. fib, dementia, CHF, hyperlipidemia, coronary artery disease and history of [facility] brought by family members after he he syncopized. Per family members patient felt dizzy and stood up from the chair and passed out and they noticed his eyes rolled up and unresponsive. Reason For Visit: SHORTNESS OF BREATH/HYPOTENSION Physical Exam Vital Signs: Temp Pulse Resp BP Pulse Ox 98.3 F 103 H 16 113/76 100 06/12/18 15:52 06/12/18 15:52 06/12/18 15:52 06/12/18 15:52 06/12/18 15:52 Intake & Output 06/11/18 06/12/18 06/13/18 06:59 06:59 06:59 Intake Total 992 120 Output Total 900 Balance 992 -780 Weight 95 kg Results Laboratory Results: 06/12/18 06:29 06/12/18 06:29 06/11/18 06/12/18 06/12/18 18:20 06:29 06:29 WBC 9.7 RBC 4.52 Hgb 14.6 Hct 42.7 MCV 94 MCH 32.2 MCHC 34.1 RDW 13.5 Plt Count 177 Seg Neutrophils % 66.1 Lymphocytes % 19.3 Monocytes % 10.7 Eosinophils % 3.6 Basophils % 0.3 Absolute Neutrophils 6.4 Absolute Lymphocytes 1.9 Absolute Monocytes 1.0 Absolute Eosinophils 0.3 Absolute Basophils 0.0 Carbonic Acid 1.36 H HCO3/H2CO3 Ratio 20:1 ABG pH 7.42 ABG pCO2 45.2 H ABG pO2 130.2 H ABG HCO3 28.5 H ABG O2 Saturation 98.6 H ABG Base Excess 3.3 FiO2 50% Sodium 137.2 Potassium 4.5 Chloride 100 Carbon Dioxide 29 Anion Gap 8 BUN 37 H Creatinine 1.97 H Est GFR ( Amer) 39 L Est GFR (Non-Af Amer) 32 L Glucose 89 Calcium 8.6 Magnesium 2.2 Total Bilirubin 0.7 AST 18 ALT 22 Alkaline Phosphatase 74 Total Protein 6.3 Albumin 3.3 L TSH Urine Color Urine Appearance Urine pH Ur Specific [place] Urine Protein Urine Glucose (UA) Urine Ketones Urine Blood Urine Nitrite Ur Leukocyte Esterase Urine WBC (Auto) Urine RBC (Auto) 06/12/18 06/12/18 06:29 12:24 WBC RBC Hgb Hct MCV MCH MCHC RDW Plt Count Seg Neutrophils % Lymphocytes % Monocytes % Eosinophils % Basophils % Absolute Neutrophils Absolute Lymphocytes Absolute Monocytes Absolute Eosinophils Absolute Basophils Carbonic Acid HCO3/H2CO3 Ratio ABG pH ABG pCO2 ABG pO2 ABG HCO3 ABG O2 Saturation ABG Base Excess FiO2 Sodium Potassium Chloride Carbon Dioxide Anion Gap BUN Creatinine Est GFR ( Amer) Est GFR (Non-Af Amer) Glucose Calcium Magnesium Total Bilirubin AST ALT Alkaline Phosphatase Total Protein Albumin TSH 0.76 Urine Color YELLOW Urine Appearance CLEAR Urine pH 5.0 Ur Specific [place] 1.013 Urine Protein NEGATIVE Urine Glucose (UA) NEGATIVE Urine Ketones NEGATIVE Urine Blood NEGATIVE Urine Nitrite NEGATIVE Ur Leukocyte Esterase NEGATIVE Urine WBC (Auto) 0 Urine RBC (Auto) 0 06/11/18 06/11/18 06/11/18 14:45 14:45 18:05 Creatine Kinase 33 L CK-MB (CK-2) 0.74 0.67 Troponin I < 0.012 0.021 NT-Pro-B Natriuret Pep 956 H 06/12/18 06/12/18 00:30 06:29 Creatine Kinase CK-MB (CK-2) 0.60 0.64 Troponin I 0.019 0.014 NT-Pro-B Natriuret Pep 2270 H Impressions: Chest X-Ray 06/11/18 14:48 IMPRESSION: Cardiomegaly with no raffaele pulmonary edema. Chronic lung changes. Head CT 06/11/18 15:40 IMPRESSION: CHRONIC MICROVASCULAR ISCHEMIA. NO ACUTE IMAGING FINDINGS IN THE BRAIN. EVIDENCE OF ACUTE STROKE: NO. Assessment and Plan - Diagnosis (1) Syncope and collapse Is this a current diagnosis for this admission?: Yes Plan: Patient noticed to have orthostatic hypotension. His CT of the head is negative for acute intracranial process. His blood pressure is improving. (2) Acute encephalopathy Is this a current diagnosis for this admission?: Yes Plan: Due to #1. Resolving. (3) Chronic atrial fibrillation Is this a current diagnosis for this admission?: Yes (4) Acute kidney injury Is this a current diagnosis for this admission?: Yes Plan: We will cautiously hydrate him and repeat his renal function test in the morning. (5) Coronary artery disease Is this a current diagnosis for this admission?: Yes Plan: No anginal symptoms. (6) Hypothyroidism Qualifiers: Hypothyroidism type: acquired Qualified Code(s): E03.9 - Hypothyroidism, unspecified Is this a current diagnosis for this admission?: Yes Plan: Continue his Synthroid. (7) Dementia Is this a current diagnosis for this admission?: Yes Plan: Stable without behavioral disorder. (8) Hypertension Qualifiers: Hypertension type: essential hypertension Qualified Code(s): I10 - [place] l (primary) hypertension Is this a current diagnosis for this admission?: Yes Plan: Currently patient is hypotensive so we will hold his antihypertensive medication. (9) Hyperlipidemia Qualifiers: Hyperlipidemia type: unspecified Qualified Code(s): E78.5 - Hyperlipidemia, unspecified Is this a current diagnosis for this admission?: Yes Plan: Continue current medication.
[2018-06-12] MEDS: MIDODRINE HCL 5 MG TABLET PO SCH (17:37)
[2018-06-12] MEDS: ATORVASTATIN CALCIUM 10 MG TABLET PO SCH (21:25)
[2018-06-12] MEDS: DOXAZOSIN MESYLATE 2 MG TABLET PO SCH (21:26)
[2018-06-13] MEDS: METOPROLOL TARTRATE 25 MG TABLET PO SCH ×2 (05:12→17:10)
[2018-06-13] MEDS: NORMAL SALINE 1000 ML 1,000 ML IV PRN (06:12)
[2018-06-13 06:54] LABS: ANION GAP 8 (5-19); BLOOD UREA NITROGEN 38 mg/dL (7-20); CALCIUM 8.7 mg/dL (8.4-10.2); CARBON DIOXIDE 26 mmol/L (22-30); CHLORIDE 104 mmol/L (98-107); GLUCOSE 82 mg/dL (75-110); SODIUM 137.7 mmol/L (137-145)
[2018-06-13] MEDS: DONEPEZIL HCL 5 MG TABLET PO SCH (09:41)
[2018-06-13] MEDS: MEMANTINE HCL 10 MG TABLET PO SCH (09:41)
[2018-06-13] MEDS: ENOXAPARIN SODIUM INJ 30 MG/0.3 ML DISP.SYRIN SUBCUT SCH (09:41)
[2018-06-13] MEDS: ASPIRIN 81 MG TABLET, ENT COATED PO SCH (09:41)
[2018-06-13] MEDS: MIDODRINE HCL 5 MG TABLET PO SCH ×3 (11:39→17:19)
--- NOTE | 2018-06-13 12:07 | PDOC PROGRESS REPORT ---
Subjective Progress Note for:: 06/13/18 Subjective:: I seen and examined the patient at bedside. He is awake alert but looks depressed. He states that he is within normal limits. Blood pressure also normalized at this 117/66. Renal function also improving his creatinine trended down from 1.97-1.74. His daughter reports this patient at his baseline ambulate with the help of a walker. She requests this rehab placement. Will follow the recommendation of the physical therapist. Reason For Visit: SHORTNESS OF BREATH/HYPOTENSION Physical Exam Vital Signs: Temp Pulse Resp BP Pulse Ox 98.5 F 65 22 H 117/66 92 06/13/18 09:00 06/13/18 09:00 06/13/18 09:00 06/13/18 09:00 06/13/18 09:00 Intake & Output 06/12/18 06/13/18 06/14/18 06:59 06:59 06:59 Intake Total 992 2105 Output Total 1400 Balance 992 705 Weight 95 kg 95 kg General appearance: PRESENT: no acute distress Head exam: PRESENT: atraumatic Eye exam: PRESENT: conjunctiva pink Mouth exam: PRESENT: moist Neck exam: ABSENT: carotid bruit, JVD, lymphadenopathy, thyromegaly Respiratory exam: PRESENT: clear to auscultation andreia. ABSENT: rales, rhonchi, wheezes Cardiovascular exam: PRESENT: irregular rhythm GI/Abdominal exam: PRESENT: normal bowel sounds, soft. ABSENT: distended, guarding, mass, organolmegaly, rebound, tenderness Neurological exam: PRESENT: alert, awake Psychiatric exam: PRESENT: depressed Results Laboratory Results: 06/12/18 06:29 06/13/18 05:08 06/12/18 06/13/18 12:24 05:08 Sodium 137.7 Potassium 5.0 Chloride 104 Carbon Dioxide 26 Anion Gap 8 BUN 38 H Creatinine 1.74 H Est GFR ( Amer) 45 L Est GFR (Non-Af Amer) 37 L Glucose 82 Calcium 8.7 Urine Color YELLOW Urine Appearance CLEAR Urine pH 5.0 Ur Specific [place] 1.013 Urine Protein NEGATIVE Urine Glucose (UA) NEGATIVE Urine Ketones NEGATIVE Urine Blood NEGATIVE Urine Nitrite NEGATIVE Ur Leukocyte Esterase NEGATIVE Urine WBC (Auto) 0 Urine RBC (Auto) 0 06/11/18 06/11/18 06/11/18 14:45 14:45 18:05 Creatine Kinase 33 L CK-MB (CK-2) 0.74 0.67 Troponin I < 0.012 0.021 NT-Pro-B Natriuret Pep 956 H 06/12/18 06/12/18 00:30 06:29 Creatine Kinase CK-MB (CK-2) 0.60 0.64 Troponin I 0.019 0.014 NT-Pro-B Natriuret Pep 2270 H Impressions: Chest X-Ray 06/11/18 14:48 IMPRESSION: Cardiomegaly with no raffaele pulmonary edema. Chronic lung changes. Head CT 06/11/18 15:40 IMPRESSION: CHRONIC MICROVASCULAR ISCHEMIA. NO ACUTE IMAGING FINDINGS IN THE BRAIN. EVIDENCE OF ACUTE STROKE: NO. Assessment and Plan - Diagnosis (1) Syncope and collapse Is this a current diagnosis for this admission?: Yes Plan: His blood pressure improving. (2) Acute encephalopathy Is this a current diagnosis for this admission?: Yes Plan: Improving (3) Chronic atrial fibrillation Is this a current diagnosis for this admission?: Yes Plan: Rate controlled. (4) Acute kidney injury Is this a current diagnosis for this admission?: Yes Plan: We will cautiously hydrate him and repeat his renal function test in the morning. (5) Coronary artery disease Is this a current diagnosis for this admission?: Yes Plan: No anginal symptoms. (6) Hypothyroidism Qualifiers: Hypothyroidism type: acquired Qualified Code(s): E03.9 - Hypothyroidism, unspecified Is this a current diagnosis for this admission?: Yes Plan: Continue his Synthroid. (7) Dementia Is this a current diagnosis for this admission?: Yes Plan: Stable without behavioral disorder. (8) Hypertension Qualifiers: Hypertension type: essential hypertension Qualified Code(s): I10 - Essential (primary) hypertension Is this a current diagnosis for this admission?: Yes Plan: His blood pressure is stable. (9) Hyperlipidemia Qualifiers: Hyperlipidemia type: unspecified Qualified Code(s): E78.5 - Hyperlipidemia, unspecified Is this a current diagnosis for this admission?: Yes Plan: Continue current medication.
[2018-06-13] MEDS: DOXAZOSIN MESYLATE 2 MG TABLET PO SCH (21:04)
[2018-06-13] MEDS: ATORVASTATIN CALCIUM 10 MG TABLET PO SCH (21:04)
[2018-06-14] MEDS: METOPROLOL TARTRATE 25 MG TABLET PO SCH ×2 (05:08→18:05)
[2018-06-14] MEDS: NORMAL SALINE 1000 ML 1,000 ML IV PRN (09:47)
[2018-06-14] MEDS: MIDODRINE HCL 5 MG TABLET PO SCH ×2 (10:51→18:10)
[2018-06-14] MEDS: MEMANTINE HCL 10 MG TABLET PO SCH (10:51)
[2018-06-14] MEDS: ENOXAPARIN SODIUM INJ 30 MG/0.3 ML DISP.SYRIN SUBCUT SCH (10:51)
[2018-06-14] MEDS: DONEPEZIL HCL 5 MG TABLET PO SCH (10:51)
[2018-06-14] MEDS: ASPIRIN 81 MG TABLET, ENT COATED PO SCH (10:51)
--- NOTE | 2018-06-14 14:40 | PDOC PROGRESS REPORT ---
Subjective Progress Note for:: 06/14/18 Subjective:: Patient seen resting in bed comfortably. His blood pressure remained stable. Patient wants rehab placement. They also asked me to consult Dr. Bucio. Reason For Visit: SHORTNESS OF BREATH/HYPOTENSION Physical Exam Vital Signs: Temp Pulse Resp BP Pulse Ox 97.5 F 89 33 H 131/88 H 96 06/13/18 23:23 06/14/18 09:14 06/14/18 12:28 06/14/18 05:08 06/14/18 12:28 Intake & Output 06/13/18 06/14/18 06/15/18 06:59 06:59 06:59 Intake Total 2105 1240 200 Output Total 1400 Balance 705 1240 200 Weight 95 kg 95 kg General appearance: PRESENT: no acute distress Head exam: PRESENT: atraumatic Mouth exam: PRESENT: moist Neck exam: ABSENT: carotid bruit, JVD, lymphadenopathy, thyromegaly Respiratory exam: PRESENT: clear to auscultation andreia, decreased breath sounds. ABSENT: rales, rhonchi, wheezes Cardiovascular exam: PRESENT: irregular rhythm Neurological exam: PRESENT: alert, awake Results Laboratory Results: 06/12/18 06:29 06/13/18 05:08 06/11/18 06/11/18 06/11/18 14:45 14:45 18:05 Creatine Kinase 33 L CK-MB (CK-2) 0.74 0.67 Troponin I < 0.012 0.021 NT-Pro-B Natriuret Pep 956 H 06/12/18 06/12/18 00:30 06:29 Creatine Kinase CK-MB (CK-2) 0.60 0.64 Troponin I 0.019 0.014 NT-Pro-B Natriuret Pep 2270 H Impressions: Chest X-Ray 06/11/18 14:48 IMPRESSION: Cardiomegaly with no raffaele pulmonary edema. Chronic lung changes. Head CT 06/11/18 15:40 IMPRESSION: CHRONIC MICROVASCULAR ISCHEMIA. NO ACUTE IMAGING FINDINGS IN THE BRAIN. EVIDENCE OF ACUTE STROKE: NO. Assessment and Plan - Diagnosis (1) Debility and deconditioning Is this a current diagnosis for this admission?: Yes Plan: Patient may benefit from less than 30 days rehab. (2) Syncope and collapse Is this a current diagnosis for this admission?: Yes Plan: His blood pressure improving. (3) Acute encephalopathy Is this a current diagnosis for this admission?: Yes Plan: Improving (4) Chronic atrial fibrillation Is this a current diagnosis for this admission?: Yes Plan: Rate controlled. (5) Acute kidney injury Is this a current diagnosis for this admission?: Yes Plan: Improving (6) Coronary artery disease Is this a current diagnosis for this admission?: Yes Plan: No anginal symptoms. (7) Hypothyroidism Qualifiers: Hypothyroidism type: acquired Qualified Code(s): E03.9 - Hypothyroidism, unspecified Is this a current diagnosis for this admission?: Yes Plan: Continue his Synthroid. (8) Dementia Is this a current diagnosis for this admission?: Yes Plan: Stable without behavioral disorder. (9) Hypertension Qualifiers: Hypertension type: essential hypertension Qualified Code(s): I10 - Essential (primary) hypertension Is this a current diagnosis for this admission?: Yes Plan: His blood pressure is stable. (10) Hyperlipidemia Qualifiers: Hyperlipidemia type: unspecified Qualified Code(s): E78.5 - Hyperlipidemia, unspecified Is this a current diagnosis for this admission?: Yes Plan: Continue current medication.
[2018-06-14] MEDS: ATORVASTATIN CALCIUM 10 MG TABLET PO SCH (21:12)
[2018-06-14] MEDS: DOXAZOSIN MESYLATE 2 MG TABLET PO SCH (21:13)
[2018-06-15] MEDS: METOPROLOL TARTRATE 25 MG TABLET PO SCH (05:09)
[2018-06-15 07:35] LABS: ANION GAP 6 (5-19); BLOOD UREA NITROGEN 27 mg/dL (7-20); CALCIUM 8.4 mg/dL (8.4-10.2); CARBON DIOXIDE 26 mmol/L (22-30); CHLORIDE 106 mmol/L (98-107); GLUCOSE 91 mg/dL (75-110); POTASSIUM 4.7 mmol/L (3.6-5.0); SODIUM 137.6 mmol/L (137-145)
[2018-06-15] MEDS: ASPIRIN 81 MG TABLET, ENT COATED PO SCH (09:01)
[2018-06-15] MEDS: DONEPEZIL HCL 5 MG TABLET PO SCH (09:01)
[2018-06-15] MEDS: ENOXAPARIN SODIUM INJ 30 MG/0.3 ML DISP.SYRIN SUBCUT SCH (09:02)
[2018-06-15] MEDS: MEMANTINE HCL 10 MG TABLET PO SCH (09:02)
[2018-06-15] MEDS: MIDODRINE HCL 5 MG TABLET PO SCH (09:03)
[2018-06-15 09:35] VITALS: BP 110/61
--- NOTE | 2018-06-15 10:46 | PDOC TRANSFER SUMMARY ---
General - Admit/Disc Date/PCP Admission Date/Primary Care Provider: 06/11/18 16:51 HEIDY PETERSON MD Discharge Date: 06/15/18 - Discharge Diagnosis (1) Debility and deconditioning Is this a current diagnosis for this admission?: Yes (2) Syncope and collapse Is this a current diagnosis for this admission?: Yes (3) Acute encephalopathy Is this a current diagnosis for this admission?: Yes (4) Chronic atrial fibrillation Is this a current diagnosis for this admission?: Yes (5) Acute kidney injury Is this a current diagnosis for this admission?: Yes (6) Coronary artery disease Is this a current diagnosis for this admission?: Yes (7) Hypothyroidism Is this a current diagnosis for this admission?: Yes (8) Dementia Is this a current diagnosis for this admission?: Yes (9) Hypertension Is this a current diagnosis for this admission?: Yes (10) Hyperlipidemia Is this a current diagnosis for this admission?: Yes - Additional Information Resuscitation Status: Do Not Resuscitate Home Medications: Aspirin [Ecotrin] 81 mg PO DAILY 05/29/18 Donepezil HCl [Aricept] 5 mg PO DAILY 05/29/18 Memantine HCl [Namenda 10 mg Tablet] 10 mg PO DAILY 05/29/18 Tramadol HCl [Ultram 50 mg Tablet] 50 mg PO Q8HP PRN 05/29/18 Albuterol Sulfate [Proair Hfa Inhalation Aerosol 8.5 gm Mdi] 1 puff IH Q4 PRN #1 mdi 06/02/18 Furosemide [Lasix 20 mg Tablet] 20 mg PO DAILY tablet 06/02/18 Docusate Sodium [Colace 100 mg Capsule] 100 mg PO DAILY 06/11/18 Doxazosin Mesylate [Cardura 2 mg Tablet] 2 mg PO QHS 06/11/18 Lisinopril [Prinivil 10 mg Tablet] 20 mg PO QHS 06/11/18 Lovastatin [Mevacor] 20 mg PO QHS 06/11/18 Metoprolol Tartrate [Lopressor 25 mg Tablet] 12.5 mg PO Q12 06/11/18 History of Present Illness Admission Date/PCP: 06/11/18 16:51 HEIDY PETERSON MD History of Present Illness: BRIGITTE VAUGHAN is a 87 year old male with history of congestive heart failure, aortic valve replacement, coronary artery disease, atrial fibrillation, hyperlipidemia, dementia brought in by family members after syncopal episode at home. Patient felt dizzy and stood up from the chair and passed out family members noticed eyes rolled up not responded on the EMS was called. No seizure activity was noted. In the emergency room he was found to be orthostatic positive in shortness of breath and placed on BiPAP. Patient was given IV Lasix 1 dose. medical consult was called for shortness of breath hypotension AK I/dizziness/orthostatic hypotension. Went to see the patient in the emergency room patient was on BiPAP. Most of the history got from the daughter. She says dad wishes are DNR/DNI. Hospital Course Hospital Course: This is a very pleasant 87 years old male patient with multiple comorbidities including chronic A. fib, dementia, CHF, hyperlipidemia, coronary artery disease and history of aortic valve replacement 2 years ago at the [facility] brought by family members after he he syncopized. Per family members patient felt dizzy and stood up from the chair and passed out and they noticed his eyes rolled up and unresponsive. Initially patient found to be hypotensive and acute kidney injury. He has been managed with normal saline at rate of 100 mL/h and midodrine 10 mg twice daily. His blood pressure has improved and his creatinine has been trending down. Since patient is debilitated and deconditioned he may benefit from short-term rehab for less than 30 days. I will adjust his blood pressure medications and I will continue the midodrine. I seen this patient this morning he is a sleeping quietly. His vitals are stable. And his kidney function is improving steadily. Physical Exam Vital Signs: Temp Pulse Resp BP Pulse Ox 98.6 F 106 H 17 110/61 99 06/15/18 07:43 06/15/18 07:43 06/15/18 07:43 06/15/18 07:43 06/15/18 07:43 Intake & Output 06/14/18 06/15/18 06/16/18 06:59 06:59 06:59 Intake Total 1240 440 Balance 1240 440 Weight 95 kg 95 kg General appearance: PRESENT: no acute distress Eye exam: PRESENT: conjunctiva pink Mouth exam: PRESENT: moist Neck exam: ABSENT: carotid bruit, JVD, lymphadenopathy, thyromegaly Respiratory exam: PRESENT: decreased breath sounds Cardiovascular exam: PRESENT: irregular rhythm Results Laboratory Results: 06/12/18 06:29 06/15/18 05:11 06/15/18 05:11 Sodium 137.6 Potassium 4.7 Chloride 106 Carbon Dioxide 26 Anion Gap 6 BUN 27 H Creatinine 1.58 H Est GFR ( Amer) 51 L Est GFR (Non-Af Amer) 42 L Glucose 91 Calcium 8.4 06/11/18 06/11/18 06/11/18 14:45 14:45 18:05 Creatine Kinase 33 L CK-MB (CK-2) 0.74 0.67 Troponin I < 0.012 0.021 NT-Pro-B Natriuret Pep 956 H 06/12/18 06/12/18 00:30 06:29 Creatine Kinase CK-MB (CK-2) 0.60 0.64 Troponin I 0.019 0.014 NT-Pro-B Natriuret Pep 2270 H Impressions: Chest X-Ray 06/11/18 14:48 IMPRESSION: Cardiomegaly with no raffaele pulmonary edema. Chronic lung changes. Head CT 06/11/18 15:40 IMPRESSION: CHRONIC MICROVASCULAR ISCHEMIA. NO ACUTE IMAGING FINDINGS IN THE BRAIN. EVIDENCE OF ACUTE STROKE: NO. Qualifiers - * PATIENT BEING DISCHARGED WITH ANY OF THE FOLLOWING DIAGNOSIS: No
--- NOTE | 2018-06-19 10:25 | INCOMPLETE PFT LETTER ---
On 06/14/18, BRIGITTE VAUGHAN : 1930 presented to [facility] for a Pulmonary Function Test. Attempts were made to perform the test but the patient was unable to perform adequately due to [patient has dementia and coordination difficulties with testing]. Please feel free to contact us for any further questions. Sincerely, Respiratory Care Department [facility] INS[facility]Chris
== END 2018-06-15 16:15 | DRG 309 ==
LOC: ER 14:20 → EH 16:51 → 4W 21:36
PROVIDERS: ADMIT Internal Medicine; ATTEND Internal Medicine
PROC: 5A09457 Assistance with Respiratory Ventilation, 24-96 Consecutive Hours, Continuous Positive Airway Pressure (ICD-10-PCS; principal; 2018-06-11)
PROC: 3E0F73Z Introduction of Anti-inflammatory into Respiratory Tract, Via Natural or Artificial Opening (ICD-10-PCS; 2018-06-11)
DX: I48.2 Chronic atrial fibrillation (principal); N17.9 Acute kidney failure, unspecified; F02.81 Dementia in other diseases classified elsewhere, unspecified severity, with behavioral disturbance; I25.10 Atherosclerotic heart disease of native coronary artery without angina pectoris; E03.9 Hypothyroidism, unspecified; E78.5 Hyperlipidemia, unspecified; I95.1 Orthostatic hypotension; G30.1 Alzheimer's disease with late onset; R09.02 Hypoxemia; Z66 Do not resuscitate; E86.0 Dehydration; I10 Essential (primary) hypertension; Z79.899 Other long term (current) drug therapy; Z79.82 Long term (current) use of aspirin; Z95.2 Presence of prosthetic heart valve; Z95.1 Presence of aortocoronary bypass graft
CPT/HCPCS: 36415; 70450; 71045; 80048; 80053; 81001; 82550; 82553; 82803; 83036; 83735; 83880; 84443; 84484; 85025; 93005; 93010; 94010; 94660; 96374; 99285; J1650; J1940; J3490; J7030

== ENCOUNTER 2018-06-26 06:19 | Inpatient (IN) | payer OTHER, MEDICARE ==
[2018-06-26] MEDS ORDERED: LIDOCAINE 1%/EPINEPHRINE INJ 20 ML VIAL INJ ONE (06:45)
[2018-06-26] MEDS ORDERED: DIPH/PERTUSS(ACELL)/TETANUS VAC/PF 0.5 ML SYR (>=10YO) IM ONE (06:47)
[2018-06-26 07:04] LABS: ABSOLUTE EOSINOPHILS # (AUTO) 0.4 10^3/uL (0.0-0.6); ABSOLUTE LYMPHOCYTES (AUTO) 1.4 10^3/uL (0.5-4.7); ABSOLUTE MONOCYTES (AUTO) 0.5 10^3/uL (0.1-1.4); ABSOLUTE NEUT (AUTO) 4.8 10^3/uL (1.7-8.2); BASOPHILS % (AUTO) 0.4 % (0-2); EOSINOPHILS % (AUTO) 5.7 % (0-6); HEMOGLOBIN 12.8 g/dL (13.5-17.0); LYMPHOCYTES % (AUTO) 19.3 % (13-45); MEAN CORPUSCULAR HEMOGLOBIN 32.4 pg (27.0-33.4); MEAN CORPUSCULAR HGB CONC 34.7 g/dL (32.0-36.0); MEAN CORPUSCULAR VOLUME 93 fl (80-97); MONOCYTES % (AUTO) 7.5 % (3-13); PLATELET COUNT 280 10^3/uL (150-450); RED BLOOD COUNT 3.96 10^6/uL (4.35-5.55); RED CELL DISTRIBUTION WIDTH 13.5 % (11.5-14.0); SEGMENTED NEUTROPHILS % (AUTO) 67.1 % (42-78); TOTAL CELLS COUNTED % (AUTO) 100 %; WHITE BLOOD COUNT 7.1 10^3/uL (4.0-10.5)
[2018-06-26 07:08] LABS: INTERNATIONAL RATION (INR) 1.12
[2018-06-26 07:16] LABS: VENOUS BLOOD BASE EXCESS 1.4 mmol/L; VENOUS BLOOD HCO3 26.9 mmol/L (20-32); VENOUS BLOOD PCO2 45.7 mmHg (35-63); VENOUS BLOOD PH 7.39 (7.30-7.42)
[2018-06-26 07:28] LABS: ALANINE AMINOTRANSFERASE 21 U/L (21-72); ALBUMIN 3.3 g/dL (3.5-5.0); ALKALINE PHOSPHATASE 58 U/L (38-126); ANION GAP 10 (5-19); ASPARTATE AMINO TRANSFERASE 27 U/L (17-59); BILIRUBIN,DIRECT 0.4 mg/dL (0.0-0.4); BILIRUBIN,TOTAL 0.8 mg/dL (0.2-1.3); BLOOD UREA NITROGEN 19 mg/dL (7-20); CALCIUM 9.1 mg/dL (8.4-10.2); CARBON DIOXIDE 26 mmol/L (22-30); CHLORIDE 106 mmol/L (98-107); CREATINE KINASE 85 U/L (55-170); GLUCOSE 100 mg/dL (75-110); POTASSIUM 4.2 mmol/L (3.6-5.0); SODIUM 141.5 mmol/L (137-145); TOTAL PROTEIN 6.5 g/dL (6.3-8.2)
[2018-06-26 07:40] LABS: CREATINE KINASE MB 2.8 ng/mL (<4.55)
--- NOTE | 2018-06-26 07:44 | RADIOLOGY REPORT (SQ) ---
EXAM DESCRIPTION: XR HAND 3 OR MORE VIEWS COMPLETED DATE/TME: 06/26/2018 06:40 CLINICAL HISTORY: 87 years, Male, injury, laceration COMPARISON: None. NUMBER OF VIEWS: Three TECHNIQUE: Three views of the left hand LIMITATIONS: None. FINDINGS: There is no acute fracture or dislocation. There are degenerative changes, most notably at the third PIP joint with joint space narrowing and subchondral sclerosis. No radiopaque foreign body. No large soft tissue swelling. A small laceration is noted near the thumb. IMPRESSION: No acute fracture or dislocation. copyright 2010 [employer]- All Rights Reserved
--- NOTE | 2018-06-26 07:44 | RADIOLOGY REPORT (SQ) ---
Chest single view on 06/26/2018 at 7:01 AM CLINICAL INDICATION: Hypoxia, fall COMPARISON: 06/11/2018 FINDINGS: The patient is status post median sternotomy and valve replacement. Multiple overlying wires are noted. Cardiomegaly is noted. There are developing patchy bilateral opacities consistent with mild edema or early pneumonia. IMPRESSION: Cardiomegaly with mild developing bilateral opacities suggesting mild edema or early pneumonia.
--- NOTE | 2018-06-26 07:54 | ER Document Report ---
ED General - General Chief Complaint: Fall Stated Complaint: FALL Time Seen by Provider: 06/26/18 06:32 TRAVEL OUTSIDE OF THE [place] IN LAST 30 DAYS: No - HPI Notes: Patient is an 87-year-old male brought into the emergency department for evaluation from [facility]. Patient has a history of dementia, is not supposed to be up walking. Evidently he was found face down in the middle of the hallway. He had sustained a laceration to his left hand and wrist. Staff found him to be short of breath and more confused than normal. He was brought here to the emergency department for evaluation. The patient states he has back pain only. He is a poor historian. - Related Data Allergies/Adverse Reactions: No Known Allergies Allergy (Verified 05/29/18 12:20) Past Medical History - General Information source: Relative, [facility] Records, Outside Facility Records - Social History Smoking Status: Never Smoker Family History: Reviewed & Not Pertinent Patient has suicidal ideation: No Patient has homicidal ideation: No - Past Medical History Cardiac Medical History: Reports: Hx Atrial Fibrillation, Hx Congestive Heart Failure, Hx Coronary Artery Disease, Hx Hypercholesterolemia, Hx Hypertension Pulmonary Medical History: Denies: Hx Asthma, Hx COPD Endocrine Medical History: Reports: Hx Hypothyroidism Renal/ Medical History: Reports: Hx Benign Prostatic Hyperplasia, Hx Kidney Stones. Denies: Hx Peritoneal Dialysis Musculoskeletal Medical History: Reports Hx Arthritis Psychiatric Medical History: Reports: Hx Dementia Past Surgical History: Reports: Hx Appendectomy, Hx Cardiac Catheterization, Hx Cardiac Surgery - failed bypass, Hx Coronary Artery Bypass Graft, Hx Hernio rrhaphy. Denies: Hx Pacemaker - Immunizations Hx Diphtheria, Pertussis, Tetanus Vaccination: No Hx Pneumococcal Vaccination: 03/06/07 Review of Systems - Review of Systems Constitutional: Weakness EENT: No symptoms reported Cardiovascular: No symptoms reported Respiratory: No symptoms reported Gastrointestinal: No symptoms reported Genitourinary: No symptoms reported Musculoskeletal: See HPI Skin: See HPI Neurological/Psychological: See HPI Physical Exam - Vital signs Vitals: Pulse Ox 85 L 06/26/18 06:26 - Notes Notes: Vital signs reviewed, please refer to chart. Patient is normocephalic, atraumatic. Pupils equal round, reactive to light. Cervical spine yields no midline tenderness or step-off. No paraspinal musculature tenderness is appreciated. Heart is irregularly irregular with systolic murmur. Lungs reveal bibasilar crackles, and work of breathing is increased. Abdomen is soft, nontender, normoactive bowel sounds throughout. Extremities without cyanosis, clubbing. Peripheral pulses are equal. Skin is warm and dry. Patient has a 3 cm laceration noted to the ulnar aspect of the hand, just at the base of the left thumb. No active bleeding. Neurovascular intact distally. Range of motion of the thumb is full, in both flexion, extension, opposition. Patient is awake, alert, able to intermittently answer questions. Course - Re-evaluation Re-evalutation: 06/26/18 08:03 Patient presents emergency department for evaluation. Upon initial arrival he was tachypneic with increased work of breathing. He had been placed on 4 L of oxygen per nasal cannula by EMS. He is normally on 2 L. He was found to be between 88 and 90%. Decision was made, based on exam, to place the patient on BiPAP. Laboratory investigations and imaging were ordered as noted. Chest x- ray did reveal findings consistent with CHF, which clinically seems most likely. There was a possibility of pneumonia, but the patient has no cough, no fever, no white count. He has a history of congestive heart failure. I did review his recent visit history. Evidently the patient was admitted to the hospital recently because of syncope. There was concerned that he had been over diuresed, as he was orthostatic. My suspicion is that he has gone to for any other direction and is now wet. His proBNP elevation supports this theory. He was medicated here with IV Lasix. His wound was cleansed and closed, see procedure note. Patient is improving clinically. I am still waiting on head and neck CT. We will continue to follow. 06/26/18 12:25 Patient remained stable throughout his course here in the emergency department. I did want to have CT scan of his head and neck performed, this was unable to be done with BiPAP in place. He was given IV Lasix. He was weaned off of the BiPAP and sent over for scan, which is found to be unremarkable. He was brought back to the department, but is still requiring increased oxygen to maintain his oxygen saturation. I spoke to Dr. Artis, then ALVIN Callahan, and they will admit the patient for further care. - Vital Signs Vital signs: Temp Pulse Resp BP Pulse Ox 98.3 F 80 18 120/75 97 06/29/18 12:00 06/29/18 12:00 06/29/18 12:00 06/29/18 12:00 06/29/18 12:00 - Laboratory Result Diagrams: 06/29/18 04:05 06/29/18 04:05 Laboratory results interpreted by me: 06/26/18 06/26/18 06/26/18 06:30 06:30 06:30 RBC 3.96 L Hgb 12.8 L Hct 37.0 L Creatinine 1.33 H Est GFR (Non-Af Amer) 51 L NT-Pro-B Natriuret Pep 5430 H Albumin 3.3 L Procedures - Laceration/Wound Repair Left Hand Time completed: 07:25 Wound's Depth, Shape: Superficial Laceration pre-procedure: Betadine prep applied, Sterile drapes applied Anesthetic type: 1% Lidocaine Volume Anesthetic (mLs): 4 Wound explored: Clean, No foreign body removed Wound Repaired With: Sutures Suture Size/Type: 4:0, Nylon Number of Sutures: 6 Layer Closure?: No Post-procedure wound care: Sterile dressing applied Post-procedure NV exam normal: Yes Complications: No Critical Care Note - Critical Care Note Total time excluding time spent on procedures (mins): 15 Discharge - Discharge Clinical Impression: Hypoxia, Syncope and collapse Acute on chronic congestive heart failure Qualifiers: Heart failure type: diastolic Qualified Code(s): I50.33 - Acute on chronic diastolic (congestive) heart failure Laceration of left hand Qualifiers: Encounter type: initial encounter Foreign body presence: without foreign body Qualified Code(s): S61.412A - Laceration without foreign body of left hand, initial encounter Condition: Stable Disposition: ADMITTED INPATIENT Admitting Provider: [facility] Admitted: Telemetry
[2018-06-26 08:01] LABS: TROPONIN I 0.064 ng/mL
[2018-06-26] MEDS ORDERED: FUROSEMIDE INJ/PF 20 MG/2 ML SDV IV ONE (08:02)
--- NOTE | 2018-06-26 11:08 | RADIOLOGY REPORT (SQ) ---
EXAM DESCRIPTION: CT HEAD WITHOUT COMPLETED DATE/TIME: 06/26/2018 10:58 am REASON FOR STUDY: fall COMPARISON: 06/11/2018. TECHNIQUE: Axial images acquired through the brain without intravenous contrast. Images reviewed wi th bone, brain and subdural windows. Additional sagittal and coronal reconstructions were generated. Images stored on PACS. All CT scanners at this facility use dose modulation, iterative reconstruction, and/or weight based d osing when appropriate to reduce radiation dose to as low as reasonably achievable (ALARA). [facility]: Dose Right [facility]: CareDose [facility]: Dose Right [facility]: Teradose 4D [facility]: [employer] RADIATION DOSE: CT Rad equipment meets quality standard of care and radiation dose reduction techniq ues were employed. CTDIvol: 53.2 mGy. DLP: 1449 mGy-cm.mGy. LIMITATIONS: None. FINDINGS: VENTRICLES: Prominent. CEREBRUM: No masses. No hemorrhage. No midline shift. Areas of low density in the white matter mos t likely due to chronic micro-vascular ischemic change. No evidence for acute infarction. CEREBELLUM: No masses. No hemorrhage. No alteration of density. No evidence for acute infarction. EXTRAAXIAL SPACES: Age-related involutional change. No fluid collections. No masses. ORBITS AND GLOBE: No intra- or extraconal masses. Normal contour of globe without masses. CALVARIUM: No fracture. PARANASAL SINUSES: No fluid or mucosal thickening. SOFT TISSUES: No mass or hematoma. OTHER: No other significant finding. IMPRESSION: CHRONIC CHANGES OF ATROPHY AND MICROVASCULAR ISCHEMIA. NO ACUTE PROCESS. EVIDENCE OF ACUTE STROKE: NO. TECHNICAL DOCUMENTATION: JOB ID: [id number] Quality ID # [id number]: Final reports with documentation of one or more dose reduction techniques (e.g., Au tomated exposure control, adjustment of the mA and/or kV according to patient size, use of iterative reconstruction technique) 2010 [employer]- All Rights Reserved Reading location - IP/workstation name: [email or web address]
--- NOTE | 2018-06-26 11:11 | RADIOLOGY REPORT (SQ) ---
EXAM DESCRIPTION: CT CERVICAL SPINE WITHOUT COMPLETED DATE/TIME: 06/26/2018 10:58 am REASON FOR STUDY: fall COMPARISON: None. TECHNIQUE: Axial images acquired through the cervical spine without intravenous contrast. Images re viewed with lung, soft tissue and bone windows. Reconstructed coronal and sagittal MPR images review ed. Images stored on PACS. All CT scanners at this facility use dose modulation, iterative reconstruction, and/or weight based d osing when appropriate to reduce radiation dose to as low as reasonably achievable (ALARA). [facility]: Dose Right [facility]: CareDose [facility]: Dose Right [facility]: Teradose 4D [facility]: [employer] RADIATION DOSE: CT Rad equipment meets quality standard of care and radiation dose reduction techniq ues were employed. CTDIvol: 24.2 mGy. DLP: 435 mGy-cm. mGy. LIMITATIONS: None. FINDINGS: ALIGNMENT: Anatomic. MINERALIZATION: Normal. VERTEBRAL BODIES: No fractures or dislocation. DISCS: Multilevel disc space narrowing with osteophytes. FACETS, LATERAL MASSES, POSTERIOR ELEMENTS: Facet arthropathy. No fractures. No dislocation. No ac chase findings. HARDWARE: None in the spine. VISUALIZED RIBS: No fractures. LUNG APICES AND SOFT TISSUES: No significant or acute findings. OTHER: No other significant finding. IMPRESSION: CHRONIC DEGENERATIVE CHANGES. NO ACUTE FINDINGS. TECHNICAL DOCUMENTATION: JOB ID: [id number] Quality ID # [id number]: Final reports with documentation of one or more dose reduction techniques (e.g., Au tomated exposure control, adjustment of the mA and/or kV according to patient size, use of iterative reconstruction technique) 2010 [employer]- All Rights Reserved Reading location - IP/workstation name: [email or web address]
[2018-06-26 11:16] LABS: APPEARANCE,URINE CLEAR; BILIRUBIN,URINE NEGATIVE (NEGATIVE); COLOR,URINE STRAW; GLUCOSE, URINE NEGATIVE (NEGATIVE); KETONES,URINE NEGATIVE (NEGATIVE); LEUKOCYTE ESTERASE,URINE NEGATIVE (NEGATIVE); NITRITE,URINE NEGATIVE (NEGATIVE); PROTEIN,URINE NEGATIVE (NEGATIVE); URINE SPECIFIC GRAVITY 1.006; UROBILINOGEN,URINE NEGATIVE mg/dL (<2.0)
[2018-06-26] MEDS ORDERED: ACETAMINOPHEN 325 MG TABLET PO PRN (14:19)
[2018-06-26] MEDS ORDERED: TRAMADOL HCL 50 MG TABLET PO PRN (14:26)
[2018-06-26] MEDS ORDERED: ALBUTEROL SULFATE 0.083% NEB 2.5 MG/3 ML AMPUL NEB PRN (14:35)
--- NOTE | 2018-06-26 14:42 | PDOC H&P ---
History of Present Illness Admission Date/PCP: 06/26/18 12:37 HEIDY PETERSON MD Patient complains of: fall History of Present Illness: BRIGITTE VAUGHAN is a 87 year old male with a past medical history of diastolic CHF, chronic respiratory failure on home O2 at 3 L/min, hypertension, hyperlipidemia, chronic A. fib (not anticoagulated), CAD, aortic valve replacement, hypothyroidism, and advanced dementia who presents for his third admission within the past 30 days with a CHF exacerbation. Patient has been a resident of [facility] for the previous 11 days for short-term rehabilitation; per family has had numerous falls at the facility. This morning he was found down in a hallway on room air with initial SPO2 of 70%. He was placed on a nonrebreather and EMS called to transport to the emergency department. Here he did briefly require BiPAP support to maintain saturations, but now is maintaining SPO2 in the mid 90s on his baseline oxygen requirement. Evaluation in the emergency department revealed benign head CT and cervical spine CT, chest x-ray suggesting pulmonary edema versus early pneumonia, unremarkable CBC, coags, VBG, urinalysis with chemistry demonstrating a creatinine of 1.33 (improved from baseline; likely secondary to fluid volume overload), elevated proBNP to 5400, and indeterminately elevated troponins (0.064-> 0.059). The patient did sustain a laceration to his left palm that has been sutured by the ED provider. He is referred to the hospitalist service for admission and management of his acute on chronic CHF exacerbation. Past Medical History Cardiac Medical History: Reports: Atrial Fibrillation, Congestive Heart Failure, Coronary Artery Disease, Hyperlipidema, Hypertension Pulmonary Medical History: Reports: Respiratory Failure Denies: Asthma, Chronic Obstructive Pulmonary Disease (COPD) EENT Medical History: Reports: None Neurological Medical History: Reports: None Endocrine Medical History: Reports: Hypothyroidism Renal/ Medical History: Reports: Chronic Kidney Disease Malignancy Medical History: Reports: None GI Medical History: Reports: Peptic Ulcer Disease Musculoskeltal Medical History: Reports: Arthritis Psychiatric Medical History: Reports: Dementia Traumatic Medical History: Reports: None Hematology: Reports: Anemia Infectious Medical History: Reports: None Past Surgical History Past Surgical History: Reports: Appendectomy, Cardiac Catheterization, Coronary Artery Bypass Graft, Herniorrhaphy Denies: Pacemaker Social History Information Source: Relative, Outside Facility Records [facility] with: [facility] Smoking Status: Never Smoker Frequency of Alcohol Use: None Hx Recreational Drug Use: No Drugs: None Hx Prescription Drug Abuse: No - Advance Directive Resuscitation Status: Do Not Resuscitate Surrogate healthcare decision maker:: The patient's daughter, Melanie Guzman. Family History Family History: Reviewed & Not Pertinent Parental Family History Reviewed: Yes Children Family History Reviewed: Yes Sibling(s) Family History Reviewed.: Yes Medication/Allergy Allergies/Adverse Reactions: No Known Allergies Allergy (Verified 05/29/18 12:20) Review of Systems Constitutional: ABSENT: chills, fever(s), headache(s), weight gain, weight loss Eyes: ABSENT: visual disturbances Ears: ABSENT: hearing changes Cardiovascular: ABSENT: chest pain, dyspnea on exertion, edema, orthropnea, palpitations Respiratory: PRESENT: cough. ABSENT: hemoptysis Gastrointestinal: ABSENT: abdominal pain, constipation, diarrhea, hematemesis, hematochezia, nausea, vomiting Genitourinary: ABSENT: dysuria, hematuria Musculoskeletal: ABSENT: joint swelling Integumentary: ABSENT: rash, wounds Neurological: PRESENT: frequent falls. ABSENT: abnormal gait, abnormal speech, confusion, dizziness, focal weakness, syncope Psychiatric: ABSENT: anxiety, depression, homidical ideation, suicidal ideation Endocrine: ABSENT: cold intolerance, heat intolerance, polydipsia, polyuria Hematologic/Lymphatic: ABSENT: easy bleeding, easy bruising Physical Exam Vital Signs: Temp Pulse Resp BP Pulse Ox 98.3 F 14 108/78 95 06/26/18 06:33 06/26/18 11:00 06/26/18 10:01 06/26/18 11:00 General appearance: PRESENT: no acute distress, cooperative, hard of hearing, well-developed, well-nourished - overweight Head exam: PRESENT: atraumatic, normocephalic Eye exam: PRESENT: conjunctiva pink, EOMI, PERRLA. ABSENT: scleral icterus Ear exam: PRESENT: normal external ear exam Mouth exam: PRESENT: moist, tongue midline Neck exam: ABSENT: carotid bruit, JVD, lymphadenopathy, thyromegaly Respiratory exam: PRESENT: crackles - bibasilar, decreased breath sounds, symmetrical, tachypnea, unlabored, other - supplemental oxygen via NC. ABSENT: rales, rhonchi, wheezes Cardiovascular exam: PRESENT: irregular rhythm, +S1, +S2, tachycardia - <110. ABSENT: diastolic murmur, rubs, systolic murmur Pulses: PRESENT: normal dorsalis pedis pul Vascular exam: PRESENT: normal capillary refill GI/Abdominal exam: PRESENT: normal bowel sounds, soft. ABSENT: distended, guarding, mass, organolmegaly, rebound, tenderness Rectal exam: PRESENT: deferred Extremities exam: PRESENT: full ROM, +1 edema - BLE. ABSENT: calf tenderness, clubbing, pedal edema Neurological exam: PRESENT: alert, awake, oriented to person, CN II-XII grossly intact, other - Near baseline; slight delayed response per family. ABSENT: oriented to place, oriented to time, oriented to situation, motor sensory deficit Psychiatric exam: PRESENT: appropriate affect, normal mood. ABSENT: homicidal ideation, suicidal ideation Skin exam: PRESENT: dry, warm, other - Left plam laceration closed via suture. ABSENT: cyanosis, rash Results Laboratory Results: 06/26/18 06:30 06/26/18 06:30 06/26/18 06/26/18 06/26/18 06:30 06:30 06:30 WBC 7.1 RBC 3.96 L Hgb 12.8 L Hct 37.0 L MCV 93 MCH 32.4 MCHC 34.7 RDW 13.5 Plt Count 280 Seg Neutrophils % 67.1 Lymphocytes % 19.3 Monocytes % 7.5 Eosinophils % 5.7 Basophils % 0.4 Absolute Neutrophils 4.8 Absolute Lymphocytes 1.4 Absolute Monocytes 0.5 Absolute Eosinophils 0.4 Absolute Basophils 0.0 VBG pH 7.39 VBG pCO2 45.7 VBG HCO3 26.9 VBG Base Excess 1.4 Sodium 141.5 Potassium 4.2 Chloride 106 Carbon Dioxide 26 Anion Gap 10 BUN 19 Creatinine 1.33 H Est GFR ( Amer) > 60 Est GFR (Non-Af Amer) 51 L Glucose 100 Calcium 9.1 Total Bilirubin 0.8 AST 27 ALT 21 Alkaline Phosphatase 58 Total Protein 6.5 Albumin 3.3 L Urine Color Urine Appearance Urine pH Ur Specific [place] Urine Protein Urine Glucose (UA) Urine Ketones Urine Blood Urine Nitrite Ur Leukocyte Esterase Urine WBC (Auto) 06/26/18 10:34 WBC RBC Hgb Hct MCV MCH MCHC RDW Plt Count Seg Neutrophils % Lymphocytes % Monocytes % Eosinophils % Basophils % Absolute Neutrophils Absolute Lymphocytes Absolute Monocytes Absolute Eosinophils Absolute Basophils VBG pH VBG pCO2 VBG HCO3 VBG Base Excess Sodium Potassium Chloride Carbon Dioxide Anion Gap BUN Creatinine Est GFR ( Amer) Est GFR (Non-Af Amer) Glucose Calcium Total Bilirubin AST ALT Alkaline Phosphatase Total Protein Albumin Urine Color STRAW Urine Appearance CLEAR Urine pH 5.0 Ur Specific [place] 1.006 Urine Protein NEGATIVE Urine Glucose (UA) NEGATIVE Urine Ketones NEGATIVE Urine Blood NEGATIVE Urine Nitrite NEGATIVE Ur Leukocyte Esterase NEGATIVE Urine WBC (Auto) 1 06/26/18 06/26/18 06/26/18 06:30 06:30 12:30 Creatine Kinase 85 CK-MB (CK-2) 2.80 Troponin I 0.064 0.059 NT-Pro-B Natriuret Pep 5430 H Impressions: Chest X-Ray 06/26/18 06:39 IMPRESSION: Cardiomegaly with mild developing bilateral opacities suggesting mild edema or early pneumonia. Hand X-Ray 06/26/18 06:40 IMPRESSION: No acute fracture or dislocation. copyright 2010 [employer]- All Rights Reserved Cervical Spine CT 06/26/18 06:41 IMPRESSION: CHRONIC DEGENERATIVE CHANGES. NO ACUTE FINDINGS. Head CT 06/26/18 06:41 IMPRESSION: CHRONIC CHANGES OF ATROPHY AND MICROVASCULAR ISCHEMIA. NO ACUTE PROCESS. EVIDENCE OF ACUTE STROKE: NO. Assessment and Plan - Diagnosis (1) Acute on chronic diastolic heart failure Is this a current diagnosis for this admission?: Yes Plan: Pt is admitted with acute on chronic diastolic CHF exacerbation. He is noted to have diminished lung sounds with basilar crackles, +1 pitting edema to bilateral lower extremities, pulmonary edema on CXR, and elevated proBNP to 5000. He is admitted to the medical floor on continuous cardiac telemetry. Continue daily aspirin and statin therapy. Continue home dose metoprolol 12.5 mg twice daily. Holding lisinopril 2/2 soft blood pressures and report of multiple falls in pt w/ hx of orthostatic BP; will resume (likely at lower dose) prior to d/c. He is receiving IV furosemide for diuresis. Cardiac diet, daily weights, strict I&O's. This is the patient's third admission within 30 days for CHF exacerbation. Have discussed with the patient's family members (daughter and granddaughter at bedside); they are interested in discussing palliative/hospice care services. Palliative care, community development planner, patient navigator consulted. (2) Acute and chronic respiratory failure with hypoxia Is this a current diagnosis for this admission?: Yes Plan: Secondary to CHF exacerbation. Pt utilizes 3 lpm via NC at baseline. Briefly on BiPAP; now maintaining spO2 on NC at 4 lpm. CXR shows pulmonary edema. Optimize cardiac medications. Supplemental oxygen as needed to maintain saturations > 89% BiPAP prn. As needed nebulizer treatments. (3) CAD (coronary artery disease) Is this a current diagnosis for this admission?: Yes Plan: No active chest pain; though patient w/ delayed response (worse than baseline) and advanced dementia. EKG pending. CXR revealed pulmonary edema. Troponins are indeterminately elevated but trending down; 0.064-> 0.059 Continue daily ASA and statin therapy. Follow troponins (likely elevated secondary to demand ischemia in CHF exacerbation with hypoxia). Monitor on continuous telemetry. (4) Chronic atrial fibrillation Is this a current diagnosis for this admission?: Yes Plan: Slight tachycardia at present; HR 90-110 Likely secondary to CHF exacerbation w/ associated hypoxia. Continue daily aspirin therapy. Patient is not a candidate for chronic anticoagulation secondary to fall risk. Continue home dose metoprolol 12.5 mg BID (5) Hyperlipidemia Qualifiers: Hyperlipidemia type: unspecified Qualified Code(s): E78.5 - Hyperlipidemia, unspecified Is this a current diagnosis for this admission?: Yes Plan: Lipid panel (05/30/18) is acceptable. Cardiac diet. Continue home dose statin therapy. (6) Hypertension Is this a current diagnosis for this admission?: Yes Plan: Hx of Hypertension; normotensive at present. Will continue to monitor blood pressures closely and adjust home medication regiment as indicated. Orthostatic blood pressures q shift. (7) Hypothyroidism Qualifiers: Hypothyroidism type: acquired Qualified Code(s): E03.9 - Hypothyroidism, unspecified Is this a current diagnosis for this admission?: Yes Plan: Hx of hypothyroidism. TSH (06/18/18) 1.53 Continue home dose levothyroxine. (8) Acute encephalopathy Is this a current diagnosis for this admission?: Yes Plan: Improved; near baseline. Patient w/ advanced dementia is orientated to self and family at baseline, otherwise confused but conversational. Secondary to hypoxia. Supportive therapy. Fall precautions. Discharge planning and patient navigator are consulted. (9) Syncope and collapse Is this a current diagnosis for this admission?: Yes Plan: Likely secondary to hypoxic event; patient was found on the floor in the hallway without his supplemental oxygen. Initial SPO2 in the 70s on room air. Patient had rapid improvement in his mental status upon application of nonrebreather. Head CT and C-spine CT are reassuring. Fall precautions, bed alarm. Orthostatic blood pressures q shift. Monitor on continuous cardiac telemetry. No focal deficits or indications for additional imaging at this time. Discussed with family; will discontinue Aricept and Nemenda as these medications have an increased fall risk. Continue midodrine as patient has been orthostatic during previous admissions. Check AM Cortisol tomorrow. (10) Laceration of left hand Qualifiers: Encounter type: initial encounter Foreign body presence: without foreign body Qualified Code(s): S61.412A - Laceration without foreign body of left hand, initial encounter Is this a current diagnosis for this admission?: Yes Plan: S/p Suture by ED provider. Keep area clean and dry; no indications for antibiotics at this time. Tylenol as needed for discomfort.
[2018-06-26] MEDS: HEPARIN SOD (PORCINE) 5,000 UNIT/ML 1 ML SYRINGE SUBCUT SCH ×2 (14:48→23:54)
--- NOTE | 2018-06-26 17:26 | EKG REPORT ---
SEVERITY:- ABNORMAL ECG - ATRIAL FIBRILLATION, V-RATE 75-143 RBBB AND LPFB INFERIOR INFARCT, AGE INDETERMINATE : Confirmed by: Magdiel Soares MD 26-Jun-2018 17:25:30
--- NOTE | 2018-06-26 17:27 | EKG REPORT ---
SEVERITY:- ABNORMAL ECG - A-FLUTTER W/ PREDOM 3:1 AV BLOCK, A-RATE 306 RBBB AND LPFB INFERIOR INFARCT, AGE INDETERMINATE : Confirmed by: Magdiel Soares MD 26-Jun-2018 17:26:39
[2018-06-26] MEDS: MIDODRINE HCL 5 MG TABLET PO SCH (17:40)
[2018-06-26] MEDS ORDERED: MIDODRINE HCL 5 MG TABLET PO SCH (18:00)
[2018-06-26] MEDS ORDERED: (PENDING PHARMACY ID) (Lovastatin [Mevacor] 20 MG) PO SCH (22:00)
[2018-06-26] MEDS: DOXAZOSIN MESYLATE 2 MG TABLET PO SCH (23:54)
[2018-06-26] MEDS: METOPROLOL TARTRATE 25 MG TABLET PO SCH (23:55)
[2018-06-26] MEDS: FUROSEMIDE INJ/PF 20 MG/2 ML SDV IV SCH (23:55)
[2018-06-27] MEDS: HEPARIN SOD (PORCINE) 5,000 UNIT/ML 1 ML SYRINGE SUBCUT SCH ×3 (06:06→21:56)
[2018-06-27] MEDS: MIDODRINE HCL 5 MG TABLET PO SCH ×3 (06:07→17:06)
[2018-06-27] MEDS: FUROSEMIDE INJ/PF 20 MG/2 ML SDV IV SCH ×3 (06:07→21:56)
[2018-06-27 10:49] LABS: HEMATOCRIT 37.7 % (37.9-51.0); HEMOGLOBIN 12.9 g/dL (13.5-17.0); MEAN CORPUSCULAR HGB CONC 34.3 g/dL (32.0-36.0); MEAN CORPUSCULAR VOLUME 93 fl (80-97); PLATELET COUNT 306 10^3/uL (150-450); RED BLOOD COUNT 4.05 10^6/uL (4.35-5.55); RED CELL DISTRIBUTION WIDTH 13.5 % (11.5-14.0); WHITE BLOOD COUNT 6.6 10^3/uL (4.0-10.5)
[2018-06-27] MEDS: ASPIRIN 81 MG TABLET, ENT COATED PO SCH (10:59)
[2018-06-27] MEDS: DOCUSATE SODIUM 100 MG CAPSULE PO SCH (10:59)
[2018-06-27] MEDS: METOPROLOL TARTRATE 25 MG TABLET PO SCH ×2 (10:59→21:57)
[2018-06-27 11:14] LABS: ANION GAP 7 (5-19); BLOOD UREA NITROGEN 16 mg/dL (7-20); CARBON DIOXIDE 31 mmol/L (22-30); CHLORIDE 101 mmol/L (98-107); GLUCOSE 111 mg/dL (75-110); POTASSIUM 4.1 mmol/L (3.6-5.0); SODIUM 139.3 mmol/L (137-145)
[2018-06-27 11:26] LABS: TROPONIN I 0.05 ng/mL
--- NOTE | 2018-06-27 17:49 | PDOC PROGRESS REPORT ---
Subjective Progress Note for:: 06/27/18 Subjective:: BRIGITTE VAUGHAN is a 87 year old male with a past medical history of diastolic CHF, chronic respiratory failure on home O2 at 3 L/min, hypertension, hyperlipidemia, chronic A. fib (not anticoagulated), CAD, aortic valve replacement, hypothyroidism, and advanced dementia who was admitted 06/26/2018 for acute on chronic diastolic CHF exacerbation, acute on chronic respiratory failure with hypoxia, and fall. Patient was seen on afternoon rounds. He was found resting in bed comfortably on supplemental oxygen of 4 L/min. The patient was awake and orientated to self, and "[facility]." He did not answer any other questions, but did nod his head yes when asked if I could listen to his heart. He appears to be comfortable and not in any acute distress. ROS is otherwise limited secondary to baseline mental status. Nursing reports that patient was a two-person max assist to stand during orthostatic blood pressures with clear orthostatis. Please see separate ACP note for discussion w/ family regarding Goals of Care. Reason For Visit: HEART FAILURE, A/C RESPIRATORY FAILURE W/HYPOXIA, Physical Exam Vital Signs: Temp Pulse Resp BP Pulse Ox 98 F 89 18 130/85 H 99 06/27/18 17:00 06/27/18 17:00 06/27/18 17:00 06/27/18 17:00 06/27/18 17:00 Intake & Output 06/26/18 06/27/18 06/28/18 06:59 06:59 06:59 Output Total 750 Balance -750 General appearance: PRESENT: no acute distress, cooperative, hard of hearing, well-developed, well-nourished Head exam: PRESENT: atraumatic, normocephalic Eye exam: PRESENT: conjunctiva pink, EOMI, PERRLA. ABSENT: scleral icterus Mouth exam: PRESENT: moist, tongue midline Neck exam: ABSENT: carotid bruit, JVD, lymphadenopathy, thyromegaly Respiratory exam: PRESENT: clear to auscultation andreia, decreased breath sounds, symmetrical, unlabored, other - supplemental oxygen via NC. ABSENT: crackles, rales, rhonchi, wheezes Cardiovascular exam: PRESENT: irregular rhythm, +S1, +S2. ABSENT: diastolic murmur, rubs, systolic murmur Pulses: PRESENT: normal dorsalis pedis pul Vascular exam: PRESENT: normal capillary refill GI/Abdominal exam: PRESENT: normal bowel sounds, soft. ABSENT: distended, guarding, mass, organolmegaly, rebound, tenderness Rectal exam: PRESENT: deferred Extremities exam: PRESENT: full ROM, pedal edema - trace BLE. ABSENT: calf tenderness, clubbing Neurological exam: PRESENT: alert, awake, oriented to person, CN II-XII grossly intact, other - Pleasantly confused. ABSENT: oriented to place, oriented to time, oriented to situation, motor sensory deficit Psychiatric exam: PRESENT: appropriate affect, normal mood. ABSENT: homicidal ideation, suicidal ideation Skin exam: PRESENT: dry, warm. ABSENT: cyanosis, intact - Left plam laceration closed via suture, rash Results Laboratory Results: 06/27/18 10:41 06/27/18 10:41 06/27/18 06/27/18 10:41 10:41 WBC 6.6 RBC 4.05 L Hgb 12.9 L Hct 37.7 L MCV 93 MCH 32.0 MCHC 34.3 RDW 13.5 Plt Count 306 Sodium 139.3 Potassium 4.1 Chloride 101 Carbon Dioxide 31 H Anion Gap 7 BUN 16 Creatinine 1.32 H Est GFR ( Amer) > 60 Est GFR (Non-Af Amer) 51 L Glucose 111 H Calcium 9.0 06/26/18 06/26/18 06/26/18 06:30 06:30 12:30 Creatine Kinase 85 CK-MB (CK-2) 2.80 Troponin I 0.064 0.059 NT-Pro-B Natriuret Pep 5430 H 06/26/18 06/27/18 18:37 10:41 Creatine Kinase CK-MB (CK-2) Troponin I 0.053 0.050 NT-Pro-B Natriuret Pep 6360 H Impressions: Chest X-Ray 06/26/18 06:39 IMPRESSION: Cardiomegaly with mild developing bilateral opacities suggesting mild edema or early pneumonia. Hand X-Ray 06/26/18 06:40 IMPRESSION: No acute fracture or dislocation. copyright 2010 [employer]- All Rights Reserved Cervical Spine CT 06/26/18 06:41 IMPRESSION: CHRONIC DEGENERATIVE CHANGES. NO ACUTE FINDINGS. Head CT 06/26/18 06:41 IMPRESSION: CHRONIC CHANGES OF ATROPHY AND MICROVASCULAR ISCHEMIA. NO ACUTE P ROCESS. EVIDENCE OF ACUTE STROKE: NO. Assessment and Plan - Diagnosis (1) Acute on chronic diastolic heart failure Is this a current diagnosis for this admission?: Yes Plan: Pt is admitted with acute on chronic diastolic CHF exacerbation. He is noted to have diminished lung sounds with basilar crackles, +1 pitting edema to bilateral lower extremities, pulmonary edema on CXR, and elevated proBNP to 5000-> 6300 He is admitted to the medical floor on continuous cardiac telemetry. Continue daily aspirin and statin therapy. Increase metoprolol to 25 mg daily Holding lisinopril 2/2 soft blood pressures and report of multiple falls in pt w/ hx of orthostatic BP; will resume (likely at lower dose) prior to d/c. He is receiving IV furosemide for diuresis; have decreased dose slightly. Cardiac diet, daily weights, strict I&O's. This is the patient's third admission within 30 days for CHF exacerbation. Have discussed with the patient's family members (daughter and granddaughter at bedside); they are interested in discussing palliative/hospice care services. Palliative care, poultry farm supervisor, patient navigator consulted. (2) Acute and chronic respiratory failure with hypoxia Is this a current diagnosis for this admission?: Yes Plan: Secondary to CHF exacerbation. Pt utilizes 3 lpm via NC at baseline. Briefly on BiPAP; now maintaining spO2 on NC at 4 lpm. CXR shows pulmonary edema. Optimize cardiac medications. Supplemental oxygen as needed to maintain saturations > 89% As needed nebulizer treatments. (3) CAD (coronary artery disease) Is this a current diagnosis for this admission?: Yes Plan: No active chest pain; though patient w/ delayed response (worse than baseline) and advanced dementia. EKG pending. CXR revealed pulmonary edema. Troponins are indeterminately elevated but trending down; 0.064-> 0.059-> 0.053- > 0.050 Continue daily ASA and statin therapy. Follow troponins (likely elevated secondary to demand ischemia in CHF exacerbation with hypoxia). Monitor on continuous telemetry. (4) Chronic atrial fibrillation Is this a current diagnosis for this admission?: Yes Plan: Continued tachycardia. Likely secondary to CHF exacerbation w/ associated hypoxia. Continue daily aspirin therapy. Patient is not a candidate for chronic anticoagulation secondary to fall risk. Increased home dose metoprolol to 25 mg BID Consider addition of diltiazem if the patient continues to have tachycardia. (5) Hyperlipidemia Qualifiers: Hyperlipidemia type: unspecified Qualified Code(s): E78.5 - Hyperlipidemia, unspecified Is this a current diagnosis for this admission?: Yes Plan: Lipid panel (05/30/18) is acceptable. Cardiac diet. Continue home dose statin therapy. (6) Hypertension Is this a current diagnosis for this admission?: Yes Plan: Hx of Hypertension; blood pressures are slightly elevated today Will continue to monitor blood pressures closely and adjust home medication regiment as indicated. Have increased metoprolol to 25 mg twice daily secondary to atrial fibrillation with tachycardia (heart rate persistently 110-120). Continue holding lisinopril; anticipate patient will need a lower dose at time of discharge due to increased beta-param therapy. Low-sodium diet. (7) Hypothyroidism Qualifiers: Hypothyroidism type: acquired Qualified Code(s): E03.9 - Hypothyroidism, unspecified Is this a current diagnosis for this admission?: Yes Plan: Hx of hypothyroidism. TSH (06/18/18) 1.53 Continue home dose levothyroxine. (8) Acute encephalopathy Is this a current diagnosis for this admission?: Yes Plan: Improved; near baseline. Patient w/ advanced dementia is orientated to self and family at baseline, otherwise confused but conversational. Secondary to hypoxia and CHF exacerbation. Supportive therapy. Fall precautions. Discharge planning and patient navigator are consulted. (9) Syncope and collapse Is this a current diagnosis for this admission?: Yes Plan: Likely secondary to hypoxic event; patient was found on the floor in the hallway without his supplemental oxygen. Initial SPO2 in the 70s on room air. Patient had rapid improvement in his mental status upon application of nonrebreather. Head CT and C-spine CT are reassuring. Orthostatic blood pressures were positive (HR 81-> 135, BP 142/51-> 111/85) AM Cortisol was appropriate TSH is appropriate Fall precautions, bed alarm. Monitor on continuous cardiac telemetry. No focal deficits or indications for additional imaging at this time. Discussed with family; will discontinue Aricept and Nemenda as these medications have an increased fall risk. Physical therapy is consulted. Although patient was orthostatic; he is clearly in fluid overload with CHF exacerbation, bibasilar crackles, dependant edema, and increased BNP. Will need to hold on IVF at this time while optimizing cardiac function. (10) Laceration of left hand Qualifiers: Encounter type: initial encounter Foreign body presence: without foreign body Qualified Code(s): S61.412A - Laceration without foreign body of left hand, initial encounter Is this a current diagnosis for this admission?: Yes Plan: S/p Suture by ED provider. Keep area clean and dry; no indications for antibiotics at this time. Tylenol as needed for discomfort. - Time Time Spent with patient: 15-24 minutes Medications reviewed and adjusted accordingly: Yes Anticipated discharge: SNF - Possible hospice placement
[2018-06-27] MEDS: ATORVASTATIN CALCIUM 10 MG TABLET PO SCH (21:56)
[2018-06-27] MEDS: DOXAZOSIN MESYLATE 2 MG TABLET PO SCH (21:56)
[2018-06-28] MEDS: MIDODRINE HCL 5 MG TABLET PO SCH ×3 (06:11→17:02)
[2018-06-28] MEDS: HEPARIN SOD (PORCINE) 5,000 UNIT/ML 1 ML SYRINGE SUBCUT SCH ×3 (06:12→22:44)
[2018-06-28 07:04] LABS: HEMATOCRIT 38.4 % (37.9-51.0); HEMOGLOBIN 13.1 g/dL (13.5-17.0); MEAN CORPUSCULAR HEMOGLOBIN 31.6 pg (27.0-33.4); MEAN CORPUSCULAR HGB CONC 34.1 g/dL (32.0-36.0); MEAN CORPUSCULAR VOLUME 93 fl (80-97); PLATELET COUNT 306 10^3/uL (150-450); RED BLOOD COUNT 4.13 10^6/uL (4.35-5.55); RED CELL DISTRIBUTION WIDTH 13.4 % (11.5-14.0); WHITE BLOOD COUNT 5.8 10^3/uL (4.0-10.5)
[2018-06-28 07:33] LABS: ANION GAP 8 (5-19); BLOOD UREA NITROGEN 16 mg/dL (7-20); CALCIUM 8.8 mg/dL (8.4-10.2); CARBON DIOXIDE 32 mmol/L (22-30); CHLORIDE 99 mmol/L (98-107); GLUCOSE 85 mg/dL (75-110); SODIUM 139.4 mmol/L (137-145)
[2018-06-28] MEDS: FUROSEMIDE INJ/PF 20 MG/2 ML SDV IV SCH (09:09)
[2018-06-28] MEDS: METOPROLOL TARTRATE 25 MG TABLET PO SCH ×2 (09:09→22:44)
[2018-06-28] MEDS: DOCUSATE SODIUM 100 MG CAPSULE PO SCH (09:09)
[2018-06-28] MEDS: ASPIRIN 81 MG TABLET, ENT COATED PO SCH (09:10)
[2018-06-28] MEDS ORDERED: FUROSEMIDE 20 MG TABLET PO SCH (14:00)
--- NOTE | 2018-06-28 14:10 | ADVANCED CARE ---
- Diagnosis (1) Acute on chronic diastolic heart failure Diagnosis Current: Yes (2) Acute and chronic respiratory failure with hypoxia Diagnosis Current: Yes (3) CAD (coronary artery disease) Diagnosis Current: Yes (4) Chronic atrial fibrillation Diagnosis Current: Yes (5) Hyperlipidemia Diagnosis Current: Yes (6) Hypertension Diagnosis Current: Yes (7) Hypothyroidism Diagnosis Current: Yes (8) Acute encephalopathy Diagnosis Current: Yes (9) Syncope and collapse Diagnosis Current: Yes (10) Laceration of left hand Diagnosis Current: Yes Attendance: The patient (unfortunately with advanced dementia; oriented to self and family only) and the patient's daughter/POA, Melanie Guzman ([phone]). Resuscitation Status: Do Not Resuscitate Discussion: Discussed with the patient's daughter his multiple readmissions in the last 30 days for recurrent CHF exacerbations. Patient's daughter expresses that she feels that her father has given up and has had a steady worsening of his chronic medical conditions since his last February. She expresses that she feels very conflicted with either decision; not wanting to prolong his suffering but also feeling that stopping medications and pursuing hospice would be giving up on him. She appears to be leaning towards hospice services but does want to discuss with the medical science liaison prior to making her final decision. She does clearly state that she is interested in palliative care service at a minimum. Daughter further discusses inability to care for patient at home. She would like to find a LTC arrangement with palliative and/or hospice at discharge. Care Planning Goals: DNR/DNI Limited interventions, minimal medication interventions. Meet with social service liaison on 06/28/2018. Consideration of discharge to SNF for long-term care with hospice services versus appropriateness for inpatient hospice admission. Time Spent: 45 minutes
--- NOTE | 2018-06-28 19:23 | PDOC PROGRESS REPORT ---
Subjective Progress Note for:: 06/28/18 Subjective:: BRIGITTE VAUGHAN is a 87 year old male with a past medical history of diastolic CHF, chronic respiratory failure on home O2 at 3 L/min, hypertension, hyperlipidemia, chronic A. fib (not anticoagulated), CAD, aortic valve replacement, hypothyroidism, and advanced dementia who was admitted 06/26/2018 for acute on chronic diastolic CHF exacerbation, acute on chronic respiratory failure with hypoxia, and fall. Patient was seen on morning rounds with his daughter and granddaughter present. He was found resting in bed comfortably on supplemental oxygen of 4 L/min. The patient was awake and orientated to self and family members. He is socially appropriate, but only answers a few questions. He appears to be comfortable and not in any acute distress. ROS is otherwise limited secondary to baseline mental status. Family reports that they are waiting bedside evaluation by Deandre and meeting with Celeste Rogers (nurse liaison for [facility]) prior to making a decision regarding disposition. No concerns per nursing. Please see separate ACP note for discussion w/ family regarding Goals of Care. Reason For Visit: HEART FAILURE, A/C RESPIRATORY FAILURE W/HYPOXIA, Physical Exam Vital Signs: Temp Pulse Resp BP Pulse Ox 97.9 F 62 16 110/50 L 96 06/28/18 17:00 06/28/18 17:00 06/28/18 17:00 06/28/18 17:00 06/28/18 17:00 Intake & Output 06/27/18 06/28/18 06/29/18 06:59 06:59 06:59 Intake Total 490 436 Output Total 378 680 5350 Balance -750 140 -664 General appearance: PRESENT: no acute distress, cooperative, hard of hearing, well-developed, well-nourished Head exam: PRESENT: atraumatic, normocephalic Eye exam: PRESENT: conjunctiva pink, EOMI, PERRLA. ABSENT: scleral icterus Ear exam: PRESENT: normal external ear exam Mouth exam: PRESENT: moist, tongue midline Neck exam: ABSENT: carotid bruit, JVD, lymphadenopathy, thyromegaly Respiratory exam: PRESENT: clear to auscultation andreia, decreased breath sounds, symmetrical, unlabored, other - Supplemental oxygen via nasal cannula. ABSENT: rales, rhonchi, wheezes Cardiovascular exam: PRESENT: irregular rhythm, +S1, +S2. ABSENT: diastolic murmur, rubs, systolic murmur Pulses: PRESENT: normal dorsalis pedis pul Vascular exam: PRESENT: normal capillary refill GI/Abdominal exam: PRESENT: normal bowel sounds, soft. ABSENT: distended, guarding, mass, organolmegaly, rebound, tenderness Rectal exam: PRESENT: deferred Extremities exam: PRESENT: full ROM. ABSENT: calf tenderness, clubbing, pedal edema Neurological exam: PRESENT: alert, awake, oriented to person, CN II-XII grossly intact, other - Pleasantly confused. ABSENT: oriented to place, oriented to time, oriented to situation, motor sensory deficit Psychiatric exam: PRESENT: appropriate affect, normal mood. ABSENT: homicidal ideation, suicidal ideation Skin exam: PRESENT: dry, intact, warm. ABSENT: cyanosis, rash Results Laboratory Results: 06/28/18 05:37 06/28/18 05:37 06/28/18 06/28/18 05:37 05:37 WBC 5.8 RBC 4.13 L Hgb 13.1 L Hct 38.4 MCV 93 MCH 31.6 MCHC 34.1 RDW 13.4 Plt Count 306 Sodium 139.4 Potassium 4.0 Chloride 99 Carbon Dioxide 32 H Anion Gap 8 BUN 16 Creatinine 1.44 H Est GFR ( Amer) 56 L Est GFR (Non-Af Amer) 47 L Glucose 85 Calcium 8.8 06/26/18 06/26/18 06/26/18 06:30 06:30 12:30 Creatine Kinase 85 CK-MB (CK-2) 2.80 Troponin I 0.064 0.059 NT-Pro-B Natriuret Pep 5430 H 06/26/18 06/27/18 06/28/18 18:37 10:41 05:37 Creatine Kinase CK-MB (CK-2) Troponin I 0.053 0.050 NT-Pro-B Natriuret Pep 6360 H 3650 H Impressions: Chest X-Ray 06/26/18 06:39 IMPRESSION: Cardiomegaly with mild developing bilateral opacities suggesting mild edema or early pneumonia. Hand X-Ray 06/26/18 06:40 IMPRESSION: No acute fracture or dislocation. copyright 2010 [employer]- All Rights Reserved Cervical Spine CT 06/26/18 06:41 IMPRESSION: CHRONIC DEGENERATIVE CHANGES. NO ACUTE FINDINGS. Head CT 06/26/18 06:41 IMPRESSION: CHRONIC CHANGES OF ATROPHY AND MICROVASCULAR ISCHEMIA. NO ACUTE PROCESS. EVIDENCE OF ACUTE STROKE: NO. Assessment and Plan - Diagnosis (1) Acute on chronic diastolic heart failure Is this a current diagnosis for this admission?: Yes Plan: Improved. Pt is admitted with acute on chronic diastolic CHF exacerbation. He is noted to have diminished lung sounds with basilar crackles, +1 pitting edema to bilateral lower extremities, pulmonary edema on CXR, and elevated proBNP to 5000-> 6300-> 3650 He is admitted to the medical floor on continuous cardiac telemetry. Continue daily aspirin and statin therapy. Increase metoprolol to 25 mg daily Holding lisinopril 2/2 hypotension; will plan on resuming (likely at lower dose) prior to d/c. We will transition from IV furosemide to p.o. today. Cardiac diet, daily weights, strict I&O's. This is the patient's third admission within 30 days for CHF exacerbation. Have discussed with the patient's family members (daughter and granddaughter at [facility]); they are interested in discussing palliative/hospice care services. Palliative care, funeral planner, patient navigator consulted. (2) Acute and chronic respiratory failure with hypoxia Is this a current diagnosis for this admission?: Yes Plan: Secondary to CHF exacerbation. Pt utilizes 3 lpm via NC at baseline. Briefly on BiPAP; now maintaining spO2 on NC at 4 lpm. CXR shows pulmonary edema. Optimize cardiac medications. Supplemental oxygen as needed to maintain saturations > 89% As needed nebulizer treatments. (3) CAD (coronary artery disease) Is this a current diagnosis for this admission?: Yes Plan: No active chest pain; though patient w/ delayed response (worse than baseline) and advanced dementia. EKG pending. CXR revealed pulmonary edema. Troponins are indeterminately elevated but trending down; 0.064-> 0.059-> 0.053- > 0.050 No longer following. Continue daily ASA and statin therapy. Monitor on continuous telemetry. (4) Chronic atrial fibrillation Is this a current diagnosis for this admission?: Yes Plan: Now rate controlled; 60-70 Likely secondary to CHF exacerbation w/ associated hypoxia. Continue daily aspirin therapy. Patient is not a candidate for chronic anticoagulation secondary to fall risk. Continue metoprolol 25 mg BID (5) Hyperlipidemia Qualifiers: Hyperlipidemia type: unspecified Qualified Code(s): E78.5 - Hyperlipidemia, unspecified Is this a current diagnosis for this admission?: Yes Plan: Lipid panel (05/30/18) is acceptable. Cardiac diet. Continue home dose statin therapy. (6) Hypertension Is this a current diagnosis for this admission?: Yes Plan: Hx of Hypertension; acceptable pressures today Will continue to monitor blood pressures closely and adjust home medication regiment as indicated. Have increased metoprolol to 25 mg twice daily secondary to atrial fibrillation with tachycardia (heart rate persistently 110-120). Continue holding lisinopril; anticipate patient will need a lower dose at time of discharge due to increased beta-param therapy. Low-sodium diet. (7) Hypothyroidism Qualifiers: Hypothyroidism type: acquired Qualified Code(s): E03.9 - Hypothyroidism, unspecified Is this a current diagnosis for this admission?: Yes Plan: Hx of hypothyroidism. TSH (06/18/18) 1.53 Continue home dose levothyroxine. (8) Acute encephalopathy Is this a current diagnosis for this admission?: Yes Plan: Improved; near baseline. Patient w/ advanced dementia is orientated to self and family at baseline, otherwise confused but conversational. Secondary to hypoxia and CHF exacerbation. Supportive therapy. Fall precautions. Discharge planning and patient navigator are consulted. (9) Syncope and collapse Is this a current diagnosis for this admission?: Yes Plan: Likely secondary to hypoxic event; patient was found on the floor in the hallway without his supplemental oxygen. Initial SPO2 in the 70s on room air. Patient had rapid improvement in his mental status upon application of nonrebreather. Head CT and C-spine CT are reassuring. AM Cortisol was appropriate TSH is appropriate Fall precautions, bed alarm. Monitor on continuous cardiac telemetry. No focal deficits or indications for additional imaging at this time. Discussed with family; will discontinue Aricept and Nemenda as these medications have an increased fall risk. Physical therapy is consulted. Will resume midodrine pending disposition (should family elect SNF for rehab (poor option) will resume; if SNF w/ hospice will discontinue) Although patient was orthostatic; he is clearly in fluid overload with CHF exacerbation, bibasilar crackles, dependant edema, and increased BNP. Will need to hold on IVF at this time while optimizing cardiac function. (10) Laceration of left hand Qualifiers: Encounter type: initial encounter Foreign body presence: without foreign body Qualified Code(s): S61.412A - Laceration without foreign body of left hand, initial encounter Is this a current diagnosis for this admission?: Yes Plan: S/p Suture by ED provider. Keep area clean and dry; no indications for antibiotics at this time. Tylenol as needed for discomfort. - Time Time Spent with patient: 25-34 minutes Medications reviewed and adjusted accordingly: Yes Anticipated discharge: SNF
[2018-06-28] MEDS: DOXAZOSIN MESYLATE 2 MG TABLET PO SCH (22:44)
[2018-06-28] MEDS: ATORVASTATIN CALCIUM 10 MG TABLET PO SCH (22:45)
[2018-06-29 05:07] LABS: HEMATOCRIT 36.9 % (37.9-51.0); HEMOGLOBIN 12.8 g/dL (13.5-17.0); MEAN CORPUSCULAR HEMOGLOBIN 32.3 pg (27.0-33.4); MEAN CORPUSCULAR HGB CONC 34.8 g/dL (32.0-36.0); MEAN CORPUSCULAR VOLUME 93 fl (80-97); PLATELET COUNT 269 10^3/uL (150-450); RED BLOOD COUNT 3.97 10^6/uL (4.35-5.55); RED CELL DISTRIBUTION WIDTH 13.3 % (11.5-14.0); WHITE BLOOD COUNT 6.3 10^3/uL (4.0-10.5)
[2018-06-29 05:22] LABS: ANION GAP 11 (5-19); BLOOD UREA NITROGEN 20 mg/dL (7-20); CALCIUM 8.8 mg/dL (8.4-10.2); CARBON DIOXIDE 31 mmol/L (22-30); CHLORIDE 98 mmol/L (98-107); GLUCOSE 85 mg/dL (75-110)
[2018-06-29] MEDS: MIDODRINE HCL 5 MG TABLET PO SCH ×2 (05:53→12:53)
[2018-06-29] MEDS: HEPARIN SOD (PORCINE) 5,000 UNIT/ML 1 ML SYRINGE SUBCUT SCH ×2 (05:54→13:54)
[2018-06-29] MEDS ORDERED: FUROSEMIDE 40 MG TABLET PO SCH (08:00)
[2018-06-29] MEDS: METOPROLOL TARTRATE 25 MG TABLET PO SCH (09:23)
[2018-06-29] MEDS: DOCUSATE SODIUM 100 MG CAPSULE PO SCH (09:24)
[2018-06-29] MEDS: ASPIRIN 81 MG TABLET, ENT COATED PO SCH (09:24)
[2018-06-29 13:49] VITALS: BP 120/75
--- NOTE | 2018-06-29 14:47 | PDOC TRANSFER SUMMARY ---
General - Admit/Disc Date/PCP Admission Date/Primary Care Provider: 06/26/18 12:37 HEIDY PETERSON MD Discharge Date: 06/29/18 - Discharge Diagnosis (1) Acute on chronic diastolic heart failure Is this a current diagnosis for this admission?: Yes Summary: Acute exacerbation has resolved. Pt is admitted with acute on chronic diastolic CHF exacerbation. He is noted to have diminished lung sounds with basilar crackles, +1 pitting edema to bilateral lower extremities, pulmonary edema on CXR, and elevated proBNP to 5000-> 6300-> 3650-> 1270 He was admitted to the medical floor on continuous cardiac telemetry. Continue daily aspirin and statin therapy. Continue metoprolol to 25 mg daily Briefly received IV furosemide for diuresis; have transition to p.o. frusemide 40 mg every morning and 20 mg in the early afternoon. Recommend continued cardiac diet and daily weights. (2) Acute and chronic respiratory failure with hypoxia Is this a current diagnosis for this admission?: Yes Summary: Resolved. Maintaining oxygen saturations on his baseline requirement with clear lung sounds Secondary to CHF exacerbation. Pt utilizes 3 lpm via NC at baseline. Briefly on BiPAP; now maintaining spO2 on baseline oxygen requirement CXR shows pulmonary edema. Optimized cardiac medications as outlined elsewhere. Continue to provide supplemental oxygen as needed to maintain saturations > 89% Continue as needed nebulizer treatments. (3) CAD (coronary artery disease) Is this a current diagnosis for this admission?: Yes Summary: No active chest pain; though patient w/ delayed response (worse than baseline) and advanced dementia. EKG pending. CXR revealed pulmonary edema. Troponins are indeterminately elevated but trending down; 0.064-> 0.059-> 0.053- > 0.050 No longer following. Continue daily ASA and statin therapy. (4) Chronic atrial fibrillation Is this a current diagnosis for this admission?: Yes Summary: Now rate controlled; 60-70 Continue daily aspirin therapy. Patient is not a candidate for chronic anticoagulation secondary to fall risk. Continue metoprolol 25 mg BID (5) Hyperlipidemia Is this a current diagnosis for this admission?: Yes Summary: Lipid panel (05/30/18) is acceptable. Cardiac diet. Continue home dose statin therapy. (6) Hypertension Is this a current diagnosis for this admission?: Yes Summary: Hx of Hypertension; acceptable pressures today Continue metoprolol to 25 mg twice daily. Low-sodium diet. (7) Hypothyroidism Is this a current diagnosis for this admission?: Yes Summary: Hx of hypothyroidism. TSH (06/18/18) 1.53 Continue home dose levothyroxine. (8) Acute encephalopathy Is this a current diagnosis for this admission?: Yes Summary: Resolved; at baseline. Patient w/ advanced dementia is orientated to self and family at baseline, otherwise confused but conversational. Secondary to hypoxia and CHF exacerbation. Supportive therapy. Fall precautions. Discussed with family member; have discontinued Namenda and Aricept secondary to increased fall risk (9) Syncope and collapse Is this a current diagnosis for this admission?: Yes Summary: Likely secondary to hypoxic event; patient was found on the floor in the hallway without his supplemental oxygen. Initial SPO2 in the 70s on room air. Patient had rapid improvement in his mental status upon application of nonrebreather. Head CT and C-spine CT are reassuring. AM Cortisol was appropriate TSH is appropriate History of orthostatic blood pressures on Midodrine Monitored on continuous cardiac telemetry; no abnormal rhythms noted. No focal deficits or indications for additional imaging at this time. Discussed with family; will discontinue Aricept and Nemenda as these medications have an increased fall risk. Recommend fall risks, bed alarm. Discharge to SNF for short-term rehab/PT/OT. (10) Laceration of left hand Is this a current diagnosis for this admission?: Yes Summary: S/p Suture by ED provider. Keep area clean and dry; no indications for antibiotics at this time. Tylenol as needed for discomfort. Sutures to be removed 07/03/2018. - Additional Information Resuscitation Status: Do Not Resuscitate Discharge Diet: Other (Comments) - low sodium Discharge Activity: Activity As Tolerated, Balance Activity w/Rest, Weigh Daily Prescriptions: Albuterol Sulfate [Ventolin 0.083% Neb 2.5 mg/3 mL Ampul] 2.5 mg NEB RTQ6HP PRN #120 vial.neb PRN Reason: Furosemide [Lasix 20 mg Tablet] 20 mg PO DAILY@1400 #30 tablet Furosemide [Lasix 40 mg Tablet] 40 mg PO DAILY@0800 #30 tablet Metoprolol Tartrate [Lopressor 25 mg Tablet] 25 mg PO Q12 #60 tablet Midodrine HCl [Proamatine 5 mg Tablet] 5 mg PO TID@0600,1200,1800 #90 tablet Home Medications: Albuterol Sulfate [Proair HFA Inhalation Aerosol 8.5 gm MDI] 1 puff IH Q4HP PRN 06/26/18 Aspirin [Ecotrin 81 mg EC Tablet] 81 mg PO DAILY 06/26/18 Docusate Sodium [Colace 100 mg Capsule] 100 mg PO DAILY 06/26/18 Doxazosin Mesylate [Cardura 2 mg Tablet] 2 mg PO QHS 06/26/18 Lovastatin [Mevacor] 20 mg PO QHS 06/26/18 Tramadol HCl [Ultram 50 mg Tablet] 50 mg PO Q8HP PRN 06/26/18 Acetaminophen [Tylenol 325 mg Tablet] 650 mg PO Q4HP PRN tablet 06/29/18 Albuterol Sulfate [Ventolin 0.083% Neb 2.5 mg/3 mL Ampul] 2.5 mg NEB RTQ6HP PRN #120 vial.neb 06/29/18 Furosemide [Lasix 20 mg Tablet] 20 mg PO DAILY@1400 #30 tablet 06/29/18 Furosemide [Lasix 40 mg Tablet] 40 mg PO DAILY@0800 #30 tablet 06/29/18 Metoprolol Tartrate [Lopressor 25 mg Tablet] 25 mg PO Q12 #60 tablet 06/29/18 Midodrine HCl [Proamatine 5 mg Tablet] 5 mg PO TID@0600,1200,1800 #90 tablet 06/29/18 History of Present Illness Admission Date/PCP: 06/26/18 12:37 HEIDY PETERSON MD History of Present Illness: BRIGITTE VAUGHAN is a 87 year old male with a past medical history of diastolic CHF, chronic respiratory failure on home O2 at 3 L/min, hypertension, hyper lipidemia, chronic A. fib (not anticoagulated), CAD, aortic valve replacement, hypothyroidism, and advanced dementia who presents for his third admission within the past 30 days with a CHF exacerbation. Patient has been a resident of [facility] for the previous 11 days for short-term rehabilitation; per family has had numerous falls at the facility. This morning he was found down in a hallway on room air with initial SPO2 of 70%. He was placed on a nonrebreather and EMS called to transport to the emergency department. Here he did briefly require BiPAP support to maintain saturations, but now is maintaining SPO2 in the mid 90s on his baseline oxygen requirement. Evaluation in the emergency department revealed benign head CT and cervical spine CT, chest x-ray suggesting pulmonary edema versus early pneumonia, unremarkable CBC, coags, VBG, urinalysis with chemistry demonstrating a creatinine of 1.33 (improved from baseline; likely secondary to fluid volume overload), elevated proBNP to 5400, and indeterminately elevated troponins (0.064-> 0.059). The patient did sustain a laceration to his left palm that has been sutured by the ED provider. He is referred to the hospitalist service for admission and management of his acute on chronic CHF exacerbation. Physical Exam Vital Signs: Temp Pulse Resp BP Pulse Ox 98.0 F 63 18 123/71 96 06/29/18 08:00 06/29/18 08:00 06/29/18 08:00 06/29/18 08:00 06/29/18 08:00 Intake & Output 06/28/18 06/29/18 06/30/18 06:59 06:59 06:59 Intake Total 490 556 Output Total 350 1100 Balance 140 -544 Weight 86.9 kg General appearance: PRESENT: no acute distress, cooperative, hard of hearing, well-developed, well-nourished - overweight Head exam: PRESENT: atraumatic, normocephalic Eye exam: PRESENT: conjunctiva pink, EOMI, PERRLA. ABSENT: scleral icterus Mouth exam: PRESENT: moist, tongue midline Teeth exam: PRESENT: poor dentation Neck exam: ABSENT: carotid bruit, JVD, lymphadenopathy, thyromegaly Respiratory exam: PRESENT: decreased breath sounds - bibasilar, symmetrical, unlabored. ABSENT: rales, rhonchi, wheezes Cardiovascular exam: PRESENT: irregular rhythm - afib, +S1, +S2. ABSENT: diastolic murmur, rubs, systolic murmur Pulses: PRESENT: normal dorsalis pedis pul Vascular exam: PRESENT: normal capillary refill GI/Abdominal exam: PRESENT: normal bowel sounds, soft. ABSENT: distended, guarding, mass, organolmegaly, rebound, tenderness Rectal exam: PRESENT: deferred Extremities exam: PRESENT: full ROM. ABSENT: calf tenderness, clubbing, pedal edema Musculoskeletal exam: PRESENT: other - Mod assist x2 w/ front wheel walker for transitions Neurological exam: PRESENT: alert, awake, oriented to person, CN II-XII grossly intact, other - Pleasantly confused. ABSENT: oriented to place, oriented to time, oriented to situation, motor sensory deficit Psychiatric exam: PRESENT: appropriate affect, normal mood. ABSENT: homicidal ideation, suicidal ideation Skin exam: PRESENT: dry, intact, warm. ABSENT: cyanosis, rash Results Laboratory Results: 06/29/18 04:05 06/29/18 04:05 06/29/18 06/29/18 04:05 04:05 WBC 6.3 RBC 3.97 L Hgb 12.8 L Hct 36.9 L MCV 93 MCH 32.3 MCHC 34.8 RDW 13.3 Plt Count 269 Sodium 140.0 Potassium 4.0 Chloride 98 Carbon Dioxide 31 H Anion Gap 11 BUN 20 Creatinine 1.45 H Est GFR ( Amer) 56 L Est GFR (Non-Af Amer) 46 L Glucose 85 Calcium 8.8 06/26/18 07:00 Blood Blood Culture - Final Staphylococcus Hominis 06/26/18 06/26/18 06/26/18 06:30 06:30 12:30 Creatine Kinase 85 CK-MB (CK-2) 2.80 Troponin I 0.064 0.059 NT-Pro-B Natriuret Pep 5430 H 06/26/18 06/27/18 06/28/18 18:37 10:41 05:37 Creatine Kinase CK-MB (CK-2) Troponin I 0.053 0.050 NT-Pro-B Natriuret Pep 6360 H 3650 H 06/29/18 04:05 Creatine Kinase CK-MB (CK-2) Troponin I NT-Pro-B Natriuret Pep 1270 H Impressions: Chest X-Ray 06/26/18 06:39 IMPRESSION: Cardiomegaly with mild developing bilateral opacities suggesting mild edema or early pneumonia. Hand X-Ray 06/26/18 06:40 IMPRESSION: No acute fracture or dislocation. copyright 2011 [employer]- All Rights Reserved Cervical Spine CT 06/26/18 06:41 IMPRESSION: CHRONIC DEGENERATIVE CHANGES. NO ACUTE FINDINGS. Head CT 06/26/18 06:41 IMPRESSION: CHRONIC CHANGES OF ATROPHY AND MICROVASCULAR ISCHEMIA. NO ACUTE PROCESS. EVIDENCE OF ACUTE STROKE: NO. Transfer Plan - Disposition Transfer Plan: D/C to SNF for short term rehab with LTC transition. - Time Spent with Patient Time spent with patient: Less than 30 Minutes Qualifiers - * PATIENT BEING DISCHARGED WITH ANY OF THE FOLLOWING DIAGNOSIS: Heart Failure HF Pt being discharged on ACEI for LVEF less than 40%?: Yes Reason(s) for not prescribing ACEI:: Tx not tolerated - HYPOtension HF Pt being discharged on ARBS for LVEF less than 40%?: No Reason(s) for not prescribing ARBS:: Tx not tolerated - HYPOtension HF Pt with Afib discharged with Warfarin?: No Reason(s) for not prescribing Warfarin:: Medical Contraindication - Bleeding risk HF Pt discharged on evidence-based Beta Ebony:: Yes Plan Discharge Plan: D/C to [facility] for short term rehab with LTC option. Recommend continued care by [facility] Palliative Care services w/ consideration for Hospice as patient's clinical condition warrants. Time Spent: Greater than 30 Minutes
== END 2018-06-29 16:38 | DRG 291 ==
LOC: ER 06:19 → EH 12:37 → 4N 17:12
PROVIDERS: ADMIT Internal Medicine; ATTEND Internal Medicine
PROC: 5A09457 Assistance with Respiratory Ventilation, 24-96 Consecutive Hours, Continuous Positive Airway Pressure (ICD-10-PCS; principal; 2018-06-26)
PROC: 0HQGXZZ Repair Left Hand Skin, External Approach (ICD-10-PCS; 2018-06-26)
PROC: 3E0234Z Introduction of Serum, Toxoid and Vaccine into Muscle, Percutaneous Approach (ICD-10-PCS; 2018-06-26)
DX: I11.0 Hypertensive heart disease with heart failure (principal); J96.21 Acute and chronic respiratory failure with hypoxia; I50.33 Acute on chronic diastolic (congestive) heart failure; I25.10 Atherosclerotic heart disease of native coronary artery without angina pectoris; I48.2 Chronic atrial fibrillation; E78.5 Hyperlipidemia, unspecified; W18.30XA Fall on same level, unspecified, initial encounter; Y92.128 Other place in nursing home as the place of occurrence of the external cause; E03.9 Hypothyroidism, unspecified; Z99.81 Dependence on supplemental oxygen; Z95.2 Presence of prosthetic heart valve; F03.90 Unspecified dementia, unspecified severity, without behavioral disturbance, psychotic disturbance, mood disturbance, and anxiety; S61.412A Laceration without foreign body of left hand, initial encounter; M19.90 Unspecified osteoarthritis, unspecified site; Z90.49 Acquired absence of other specified parts of digestive tract; Z95.1 Presence of aortocoronary bypass graft; Z23 Encounter for immunization; Z91.81 History of falling
CPT/HCPCS: 36415; 70450; 71045; 72125; 80048; 80053; 81001; 82533; 82550; 82553; 82803; 83880; 84484; 85025; 85027; 85610; 87040; 87077; 87186; 90471; 90715; 93005; 93010; 94660; 96374; 99285; J1644; J1940; J3490